=== PATIENT | female | born 1950 | race Caucasian/White ===

== ENCOUNTER 2020-08-31 07:26 | Outpatient (REF) | payer MEDICARE, OTHER, SELFPAY ==
[2020-08-31 11:38] LABS: Anion Gap 12 (12-20); Blood Urea Nitrogen 15 mg/dL (9-16); Calcium 8.9 mg/dL (8.4-10.2); Carbon Dioxide 28 mmol/L (22-29); Chloride 103 mmol/L (96-108); Estimated Glomerular Filt Rate > 60; Glucose Fasting 79 mg/dL (60-99); Potassium 4.3 mmol/l (3.3-5.1); Sodium 139 mmol/L (135-145)
[2020-08-31 12:04] LABS: Free T4 (Free Thyroxine) 1.25 ng/dL (0.71-1.85); Thyroid Stimulating Hormone 0.65 uIU/mL (0.32-4.0); Vitamin D 25-OH Total 40.2 ng/mL (>30)
== END 2020-08-31 07:27 | disposition home or self-care (01) ==
LOC: HO.HMGCLDS 07:26
PROVIDERS: PCP Internal Medicine; Visit Provider Internal Medicine
DX: I10 Essential (primary) hypertension (principal); E03.9 Hypothyroidism, unspecified; Z78.0 Asymptomatic menopausal state
CPT/HCPCS: 36415; 80048; 82306; 84439; 84443

== ENCOUNTER 2020-12-22 07:29 | Outpatient (REF) | payer MEDICARE, OTHER, SELFPAY ==
--- NOTE | ~2020-12-22 | MM_ITS ---
EXAMINATION: MM SCREENING DIGITAL BREAST TOMOSYNTHESIS, BILATERAL CLINICAL INFORMATION: Screening. Asymptomatic. The lifetime risk of breast cancer based on the Tyrer-Cuzick Model is 12%. COMPARISON: Mammography: 11/05/2019, 10/23/2018, 09/30/2017 TECHNIQUE: Digital breast tomosynthesis is performed in both the craniocaudal and mediolateral oblique views along with computer-aided detection (CAD). Synthesized 2D images are generated from the tomosynthesis. Additional left MLO view is provided. FINDINGS: There are scattered areas of fibroglandular density (ACR BI-RADS breast composition Category b). There are no significant masses, abnormal calcifications, or other abnormalities. There is stable minor bilateral smooth nodularity outer quadrants. There are scattered benign round and some ductal secretory calcifications again noted. The axilla and skin contours are unremarkable. No significant changes. MM/MM tomosynthesis screening BI IMPRESSION: No mammographic evidence of malignancy. ASSESSMENT: BI-RADS 2: Benign RECOMMENDATION: Routine annual mammography screening. This patient's information was entered into a reminder system with a target due date for their next mammogram.
== END 2020-12-22 07:30 | disposition home or self-care (01) ==
LOC: HO.MAMMO 07:29
PROVIDERS: Visit Provider Internal Medicine
DX: Z12.31 Encounter for screening mammogram for malignant neoplasm of breast (principal)
CPT/HCPCS: 77063; 77067

== ENCOUNTER 2021-02-01 07:02 | Outpatient (REF) | payer MEDICARE, OTHER, SELFPAY ==
[2021-02-01 11:08] LABS: MANUAL DIFF FLAG NO
[2021-02-01 11:28] LABS: Basophils Percent Auto 0.2 % (0-2); Eosinophils Absolute Auto 0.1 X10*3/uL (0.0-0.4); Eosinophils Percent Auto 2.2 % (0-4); Hematocrit 45.3 % (37-47); Hemoglobin 14.3 g/dl (12.0-16.0); Imm Gran Abs Auto 0.01 X10*3/uL (0.00-0.03); Imm Gran Pct Auto 0.2 % (0.0-0.4); Lymphocytes Absolute Auto 2.2 X10*3/uL (1.2-4.9); Lymphocytes Percent Auto 43.2 % (20-40); Mean Corpuscular HGB Conc 31.6 g/dl (31.0-35.0); Mean Corpuscular Hemoglobin 30.2 pg (27.0-33.0); Mean Corpuscular Volume 95.6 fL (80-98); Mean Platelet Volume 11.7 fL (9.4-12.3); Monocytes Absolute Auto 0.6 X10*3/uL (0.1-1.2); Monocytes Percent Auto 11.3 % (2-11); Neutrophils Absolute Auto 2.2 X10*3/uL (2.0-8.3); Neutrophils Percent Auto 42.9 % (45-73); Platelet Count 178 X10*3/uL (160-400); Red Blood Count 4.74 X10*6/uL (4.20-5.50); White Blood Count 5.1 X10*3/uL (4.8-10.8)
[2021-02-01 12:22] LABS: Free T4 (Free Thyroxine) 1.27 ng/dL (0.71-1.85); Thyroid Stimulating Hormone 0.75 uIU/mL (0.32-4.0); Vitamin D 25-OH Total 38.3 ng/mL (>30)
[2021-02-01 12:28] LABS: Folate 17.8 ng/mL (> or = 4.0); Vitamin B12 937 pg/mL (200-900)
[2021-02-01 12:54] LABS: Alanine Aminotransferase 16 U/L (0-31); Albumin Level 3.8 g/dL (3.5-5.0); Alkaline Phosphatase 140 U/L (39-117); Anion Gap 12 (12-20); Aspartate Amino Transferase 20 U/L (5-31); Bilirubin Total 0.7 mg/dL (0.0-1.0); Blood Urea Nitrogen 11 mg/dL (9-16); Carbon Dioxide 29 mmol/L (22-29); Chloride 105 mmol/L (96-108); Cholesterol 160 mg/dL; Estimated Glomerular Filt Rate > 60; Glucose Fasting 84 mg/dL (60-99); HDL Cholesterol 51 mg/dL; LDL Cholesterol Calculated 80 mg/dl; Sodium 141 mmol/L (135-145); Total Protein 6.7 g/dL (6.5-8.0); Triglycerides 145 mg/dL
== END 2021-02-01 07:03 | disposition home or self-care (01) ==
LOC: HO.HMGCLDS 07:02
PROVIDERS: PCP Internal Medicine; Visit Provider Internal Medicine
DX: I10 Essential (primary) hypertension (principal); E03.9 Hypothyroidism, unspecified; E66.9 Obesity, unspecified; Z78.0 Asymptomatic menopausal state
CPT/HCPCS: 36415; 80053; 80061; 82306; 82607; 82746; 84439; 84443; 85025

== ENCOUNTER → 2021-03-14 12:56 | Outpatient (BNVA) | payer MEDICARE, OTHER, SELFPAY | PROVIDERS: PCP Internal Medicine; Visit Provider Surgery Vascular Surgery | DX: I83.11 Varicose veins of right lower extremity with inflammation (principal) | CPT/HCPCS: 99202 ==

== ENCOUNTER 2021-04-08 07:52 | Outpatient (REF) | payer MEDICARE, OTHER, SELFPAY ==
--- NOTE | ~2021-04-08 | US_ITS ---
EXAMINATION: BILATERAL LOWER EXTREMITY VENOUS ULTRASOUND (Reflux Exam) CLINICAL INDICATION: This is a 71-year-old female with venous insufficiency and varicose veins. COMPARISON: None. TECHNIQUE: Color flow triplex imaging and compression Doppler was performed to evaluate both the deep and the superficial systems bilaterally. To evaluate the superficial system, the examination was performed in the upright position. Color-flow Doppler ultrasound and compression ultrasound were utilized. In addition, maneuvers were utilized to demonstrate reflux. FINDINGS: 1. DEEP VENOUS ULTRASOUND OF THE RIGHT LOWER EXTREMITY: Common Femoral Vein: Compressible, normal respiratory variation and augmented flow. Femoral vein: Compressible, normal color flow and augmentation. Popliteal Vein: Compressible, normal augmentation. Deep Reflux: There is no evidence of reflux in the deep system in either the common femoral vein or the popliteal vein. . There is no evidence of a White's cyst. 2. SUPERFICIAL ULTRASOUND WITH DOPPLER OF RIGHT LOWER EXTREMITY GREAT SAPHENOUS VEIN: Saphenofemoral junction: 1.1 cm. There is no reflux at the saphenofemoral junction. Mid thigh: 0.8 cm. There is reflux of 3312 ms. Above knee: 0.3 cm. There is no reflux at this level and below. Below knee: 0.3 cm Mid calf: 0.3 cm Ankle: 0.3 cm GSV REFLUX: There is isolated reflux in the proximal thigh but not in the saphenofemoral junction. DUPLICATED GREAT SAPHENOUS VEIN: None SMALL SAPHENOUS VEIN: Upper: 0.5 cm Lower: Not seen SSV REFLUX: No evidence of reflux. VEIN OF GIACOMINI: None Imaged. PERFORATORS: None Imaged VARICOSITIES: There are 0.6 cm proximal thigh varicose veins with 2244 ms. The 0.3 cm mid thigh varicose veins do not demonstrate reflux. 3. DEEP VENOUS ULTRASOUND OF THE LEFT LOWER EXTREMITY: Common Femoral Vein: Compressible, normal respiratory variation and augmented flow. Femoral vein: Compressible, normal color flow and augmentation. Popliteal Vein: Compressible, normal augmentation. Deep Reflux: There is no evidence of reflux in the deep system in either the common femoral vein or the popliteal vein. There is no evidence of a White's cyst. 4. SUPERFICIAL ULTRASOUND WITH DOPPLER OF LEFT LOWER EXTREMITY GREAT SAPHENOUS VEIN: Saphenofemoral junction: 1.1 cm. There is no reflux. Mid thigh: 0.4 cm. There is no reflux. Above knee: 0.5 cm. There is no reflux. Below knee: 0.5 cm. The reflux time is 1924 ms. Mid calf: 0.3 cm. There is no reflux. Ankle: 0.3 cm. There is no reflux. GSV REFLUX: There is isolated reflux at the knee and in the below-knee region. There is no reflux at the saphenofemoral junction. DUPLICATED GREAT SAPHENOUS VEIN: There is a 0.4 cm lateral duplicated great saphenous vein without reflux. SMALL SAPHENOUS VEIN: Upper: 0.3 cm Lower: 0.3 cm SSV REFLUX: There is greater than 3 seconds of reflux throughout the small saphenous vein. The reflux is seen at the junction. VEIN OF GIACOMINI: None Imaged. PERFORATORS: None Imaged VARICOSITIES: There are 0.3 cm proximal calf varicose veins with 2880 ms of reflux. US/US venous duplex LE BI IMPRESSION: 1. There is a patent right great saphenous vein with isolated proximal thigh reflux without evidence of reflux at the saphenofemoral junction. 2. There is a patent right small saphenous vein without reflux. 3. There are proximal right thigh varicose veins measuring 0.6 cm with reflux of 2244 ms. 4. There is a patent left great saphenous vein without evidence of reflux at the saphenofemoral junction. 5. There is a patent left lateral duplicated great saphenous vein without evidence of reflux. 6. There is a patent left small saphenous vein with reflux at the junction of greater than 3 seconds. 7. There are varicose veins in the proximal calf with greater than 2 seconds of reflux.
== END 2021-04-08 07:53 | disposition home or self-care (01) ==
LOC: HO.US 07:52
PROVIDERS: PCP Internal Medicine; Visit Provider Surgery Vascular Surgery
DX: I83.893 Varicose veins of bilateral lower extremities with other complications (principal)
CPT/HCPCS: 93970

== ENCOUNTER → 2021-04-16 09:10 | Outpatient (BNVA) | payer MEDICARE, OTHER, SELFPAY | PROVIDERS: PCP Internal Medicine; Visit Provider Surgery Vascular Surgery | DX: I83.11 Varicose veins of right lower extremity with inflammation (principal) | CPT/HCPCS: 99212 ==

== ENCOUNTER 2021-05-07 14:13 | Outpatient (REF) | payer MEDICARE, OTHER, SELFPAY ==
[2021-05-07 16:49] LABS: MANUAL DIFF FLAG NO
[2021-05-07 16:56] LABS: Basophils Percent Auto 0.4 % (0-2); Eosinophils Absolute Auto 0.1 X10*3/uL (0.0-0.4); Eosinophils Percent Auto 1.1 % (0-4); Hematocrit 45.6 % (37-47); Hemoglobin 14.7 g/dl (12.0-16.0); Imm Gran Abs Auto 0.01 X10*3/uL (0.00-0.03); Imm Gran Pct Auto 0.2 % (0.0-0.4); Lymphocytes Absolute Auto 2.1 X10*3/uL (1.2-4.9); Lymphocytes Percent Auto 37.6 % (20-40); Mean Corpuscular HGB Conc 32.2 g/dl (31.0-35.0); Mean Corpuscular Hemoglobin 29.9 pg (27.0-33.0); Mean Corpuscular Volume 92.7 fL (80-98); Mean Platelet Volume 11.6 fL (9.4-12.3); Monocytes Absolute Auto 0.5 X10*3/uL (0.1-1.2); Monocytes Percent Auto 8.3 % (2-11); Neutrophils Percent Auto 52.4 % (45-73); Platelet Count 181 X10*3/uL (160-400); Red Blood Count 4.92 X10*6/uL (4.20-5.50); Red Cell Distribution Width 12.8 % (11.0-16.0); White Blood Count 5.7 X10*3/uL (4.8-10.8)
[2021-05-07 18:12] LABS: Alanine Aminotransferase 19 U/L (0-31); Albumin Level 4.1 g/dL (3.5-5.0); Alkaline Phosphatase 139 U/L (39-117); Anion Gap 13 (12-20); Aspartate Amino Transferase 21 U/L (5-31); Bilirubin Total 0.7 mg/dL (0.0-1.0); Blood Urea Nitrogen 12 mg/dL (9-16); Calcium 9.3 mg/dL (8.4-10.2); Carbon Dioxide 22 mmol/L (22-29); Chloride 109 mmol/L (96-108); Estimated Glomerular Filt Rate > 60; Glucose Random 83 mg/dL (60-115); Potassium 4.2 mmol/L (3.3-5.1); Sodium 140 mmol/L (135-145)
== END 2021-05-07 14:14 | disposition home or self-care (01) ==
LOC: HO.HMGCLDS 14:13
PROVIDERS: PCP Internal Medicine; Visit Provider Internal Medicine
DX: Z20.822 Contact with and (suspected) exposure to COVID-19 (principal); R19.7 Diarrhea, unspecified
CPT/HCPCS: 80053; 85025; U0003; U0005

== ENCOUNTER 2021-05-08 08:40 | Outpatient (REF) | payer MEDICARE, OTHER, SELFPAY ==
[2021-05-08 12:25] LABS: Leukocytes Stool Qualitative NEGATIVE (NEGATIVE)
== END 2021-05-08 08:41 | disposition home or self-care (01) ==
LOC: HO.HMGCLNP 08:40
PROVIDERS: Visit Provider Internal Medicine
DX: R19.7 Diarrhea, unspecified (principal)
CPT/HCPCS: 87015; 87045; 87046; 87207; 87329; 89055

== ENCOUNTER → 2021-05-10 07:31 | Outpatient (BNVA) | payer MEDICARE, OTHER, SELFPAY | PROVIDERS: PCP Internal Medicine; Visit Provider Surgery Vascular Surgery | DX: I83.11 Varicose veins of right lower extremity with inflammation (principal) | CPT/HCPCS: 36482 ==

== ENCOUNTER 2021-05-13 10:32 | Outpatient (REF) | payer MEDICARE, OTHER, SELFPAY ==
--- NOTE | ~2021-05-13 | US_ITS ---
EXAMINATION: US VENOUS ULTRASOUND WITH DOPPLER LOWER EXTREMITY, RIGHT CLINICAL INFORMATION: Post venous procedure. Rule out DVT. COMPARISON: Previous exam March 2021 TECHNIQUE: Ultrasound of the deep veins is performed from the hip to the calf with compression sonography and color and pulse Doppler assessment. Spectral analysis with color-flow imaging is performed. FINDINGS: There is normal venous compression and respiratory variation and augmented flow. The visualized common femoral vein, superficial femoral vein, profunda femoral vein, popliteal vein, and the trifurcation region shows no evidence of deep venous thrombosis. There is echogenic material seen in the right greater saphenous vein post venous procedure. This is 1.4 cm from the saphenofemoral junction. The greater saphenous vein appears closed. US/US venous duplex LE RT IMPRESSION: No DVT demonstrated in the right lower extremity.
== END 2021-05-13 10:33 | disposition home or self-care (01) ==
LOC: HO.HMGCX 10:32
PROVIDERS: PCP Internal Medicine; Visit Provider Surgery Vascular Surgery
DX: M79.604 Pain in right leg (principal)
CPT/HCPCS: 93971

== ENCOUNTER → 2021-05-23 09:13 | Outpatient (BNVA) | payer MEDICARE, OTHER, SELFPAY | PROVIDERS: PCP Internal Medicine; Visit Provider Surgery Vascular Surgery | DX: I83.11 Varicose veins of right lower extremity with inflammation (principal) | CPT/HCPCS: 99212 ==

== ENCOUNTER 2021-07-08 06:19 | Outpatient (REF) | payer MEDICARE, OTHER, SELFPAY ==
[2021-07-08 12:33] LABS: Free T4 (Free Thyroxine) 1.16 ng/dL (0.71-1.85); Thyroid Stimulating Hormone 1.34 uIU/mL (0.32-4.0)
== END 2021-07-08 06:20 | disposition home or self-care (01) ==
LOC: HO.HMGCLDS 06:19
PROVIDERS: PCP Internal Medicine; Visit Provider Internal Medicine
DX: E03.9 Hypothyroidism, unspecified (principal)
CPT/HCPCS: 36415; 84439; 84443

== ENCOUNTER 2021-08-14 08:00 | Outpatient (RCR) | payer MEDICARE, OTHER, SELFPAY ==
--- NOTE | 2021-07-24 16:49 | MHC.PT.EP ---
[facility] [place] Office [place] Office [place] Office [address] Mike Evans [address] [phone] F: [phone] F: [phone] F: [phone] F: [phone] Physical Therapy Plan of Care Date of Evaluation: Date of Surgery: Diagnosis: lumbago with sciatica unspecified side Assessment: Pt is a 71 y/o female referred to PT for eval and treat of lumbago with sciatica who presents with lumbar dysfunction resulting in decreased tolerance for standing and ambulating, performing yard-work and heavy HH chores, secondary to decreased trunk ROM and strength, decreased hip strength, increased lumbar and LE tissue tension, and pain. Pt is deemed an appropriate candidate to receive skilled PT in order to address her physical limitations to improve her functional ability. Frequency and Duration: The patient will be seen 2 x\ wk x 4 wks. Short Term Goals: Initiate HEP. improve baseline pain with activity to < 5/10; initial: 8/10. Hardware Technician Goals: I with HEP. Pt will be able to lift heavy weights though it increases my pain ; initial: i can only lift very light weights . improve core strength to > Good; initial Fair +. Pt will be able to stand as long as I'd like though it does increase my pain ; initial: pain prevents me from standing > 10 min . Treatment Plan: Modalities to reduce pain, spasms and effusion. Manual therapy to restore motion and function. Therapeutic exercise to improve strength and flexibility. Neuromuscular re-education for posture and balance. Therapeutic activities to return to functional activities of daily living. Electronically signed by: Sylvain Gates DPT. Please sign and return to therapist. Thank you for your referral.
--- NOTE | 2021-12-25 08:43 | MHC.PT.DC ---
[facility] [place] Office [place] Office [place] Office [address] Mike Evans [address] [phone] F: [phone] F: [phone] F: [phone] F: [phone] Physical Therapy Discharge Report Diagnosis: lumbago with sciatica unspecified side Date of Surgery: Date of Evaluation: 07/24/21 Date of Discharge: 08/14/21 Treatments to Date: 6 Cancellations to Date: No Shows to Date: Discharge Status: Independent with HEP Patient Elected to Stop Discharge Summary: Pt elected to stop before last visit. Pt c/o knee pain with SKC DC exs. Pt I with HEP and progressing with goals. Pt has 1 v remaining and DC NV Electronically signed by: Bismark Ryan, PT Please sign and return to therapist. Thank you for your referral.
== END 2021-12-25 08:44 | disposition home or self-care (01) ==
LOC: HO.PTCHIC 08:00
PROVIDERS: PCP Internal Medicine; Visit Provider Internal Medicine
DX: M54.40 Lumbago with sciatica, unspecified side (principal)
CPT/HCPCS: 97110; 97140; 97150; 97161

== ENCOUNTER 2021-12-28 07:47 | Outpatient (REF) | payer MEDICARE, OTHER, SELFPAY ==
--- NOTE | ~2021-12-28 | MM_ITS ---
EXAMINATION: MM SCREENING DIGITAL BREAST TOMOSYNTHESIS, BILATERAL CLINICAL INFORMATION: Screening. Asymptomatic. The lifetime risk of breast cancer based on the Tyrer-Cuzick Model is 13%. COMPARISON: Mammography: 12/22/2020, 11/05/2019, 10/23/2018 TECHNIQUE: Digital breast tomosynthesis is performed in both the craniocaudal and mediolateral oblique views along with computer-aided detection (CAD). Synthesized 2D images are generated from the tomosynthesis. Additional bilateral MLO views are provided. FINDINGS: There are scattered areas of fibroglandular density (ACR BI-RADS breast composition Category b). There are no significant masses, abnormal calcifications, or other abnormalities. Minor bilateral nodularity outer quadrants are stable. Again, there are scattered bilateral punctate and coarse round and some vascular calcifications. There are no significant changes. MM/MM tomosynthesis screening BI IMPRESSION: No mammographic evidence of malignancy. ASSESSMENT: BI-RADS 2: Benign RECOMMENDATION: Routine annual mammography screening. This patient's information was entered into a reminder system with a target due date for their next mammogram.
== END 2021-12-28 07:48 | disposition home or self-care (01) ==
LOC: HO.MAMMO 07:47
PROVIDERS: PCP Internal Medicine; Visit Provider Internal Medicine
DX: Z12.31 Encounter for screening mammogram for malignant neoplasm of breast (principal)
CPT/HCPCS: 77063; 77067

== ENCOUNTER 2022-01-13 07:13 | Outpatient (REF) | payer MEDICARE, OTHER, SELFPAY ==
[2022-01-13 11:55] LABS: Alanine Aminotransferase 22 U/L (0-31); Anion Gap 15 (12-20); Aspartate Amino Transferase 24 U/L (5-31); Blood Urea Nitrogen 16 mg/dL (9-16); Calcium 9.7 mg/dL (8.4-10.2); Carbon Dioxide 25 mmol/L (22-29); Chloride 106 mmol/L (96-108); Cholesterol 175 mg/dL; Estimated Glomerular Filt Rate > 60; Glucose Fasting 94 mg/dL (60-99); HDL Cholesterol 61 mg/dL; LDL Cholesterol Calculated 95 mg/dl; Potassium 4.8 mmol/L (3.3-5.1); Sodium 141 mmol/L (135-145); Triglycerides 97 mg/dL
[2022-01-13 11:56] LABS: Thyroid Stimulating Hormone 1.32 uIU/mL (0.32-4.0); Vitamin D 25-OH Total 29.8 ng/mL (>30)
[2022-01-13 12:38] LABS: Vitamin B12 824 pg/mL (200-900)
== END 2022-01-13 07:14 | disposition home or self-care (01) ==
LOC: HO.HMGCLDS 07:13
PROVIDERS: Visit Provider Internal Medicine
DX: E03.9 Hypothyroidism, unspecified (principal); E66.9 Obesity, unspecified; I10 Essential (primary) hypertension; N95.9 Unspecified menopausal and perimenopausal disorder
CPT/HCPCS: 36415; 80048; 80061; 82306; 82607; 82746; 84439; 84443; 84450; 84460

== ENCOUNTER → 2022-03-27 10:30 | Outpatient (BNVA) | payer MEDICARE, OTHER, SELFPAY | PROVIDERS: PCP Internal Medicine; Referring Provider Physician Assistant; Visit Provider Physician Assistant Surgical | DX: E66.01 Morbid (severe) obesity due to excess calories (principal); Z98.84 Bariatric surgery status; Z68.41 Body mass index [BMI] 40.0-44.9, adult | CPT/HCPCS: 99212 ==

== ENCOUNTER 2022-07-10 07:43 | Outpatient (REF) | payer MEDICARE, OTHER, SELFPAY ==
[2022-07-10 11:24] LABS: MANUAL DIFF FLAG NO
[2022-07-10 11:38] LABS: Basophils Percent Auto 0.5 % (0-2); Eosinophils Absolute Auto 0.1 X10*3/uL (0.0-0.4); Eosinophils Percent Auto 2.2 % (0-4); Hematocrit 46.9 % (37.0-47.0); Hemoglobin 14.4 g/dl (12.0-16.0); Imm Gran Abs Auto 0.01 X10*3/uL (0.00-0.03); Imm Gran Pct Auto 0.2 % (0.0-0.4); Lymphocytes Absolute Auto 1.8 X10*3/uL (1.2-4.9); Lymphocytes Percent Auto 45.5 % (20-40); Mean Corpuscular HGB Conc 30.7 g/dl (31.0-35.0); Mean Corpuscular Hemoglobin 29.5 pg (27.0-33.0); Mean Corpuscular Volume 96.1 fL (80.0-98.0); Mean Platelet Volume 11.1 fL (9.4-12.3); Monocytes Absolute Auto 0.3 X10*3/uL (0.1-1.2); Neutrophils Absolute Auto 1.8 x10*3/uL (2.0-8.3); Neutrophils Percent Auto 44.6 % (45-73); Platelet Count 207 X10*3/uL (160-400); Red Blood Count 4.88 X10*6/uL (4.20-5.50); Red Cell Distribution Width 13.2 % (11.0-16.0)
[2022-07-10 12:27] LABS: Estimated Average Glucose 97 mg/dL
[2022-07-10 14:16] LABS: Alanine Aminotransferase 19 U/L (0-31); Alkaline Phosphatase 143 U/L (39-117); Anion Gap 16 (12-20); Aspartate Amino Transferase 19 U/L (5-31); Blood Urea Nitrogen 15 mg/dL (9-16); Calcium 9.5 mg/dL (8.4-10.2); Carbon Dioxide 27 mmol/L (22-29); Chloride 105 mmol/L (96-108); Cholesterol 167 mg/dL; Estimated Glomerular Filt Rate > 60; Ferritin 172 ng/mL (10-250); Glucose Random 86 mg/dL (60-115); HDL Cholesterol 58 mg/dL; Insulin 12 uU/mL (2-29); Iron 111 mcg/dL (30-160); LDL Cholesterol Calculated 92 mg/dl; Percent Iron Saturation 39 % (15-50); Potassium 4.9 mmol/L (3.3-5.1); Sodium 143 mmol/L (135-145); TSH reflex Free T4 1.88 uIU/mL (0.32-4.0); Total Iron Binding Capacity 285 mcg/dL (228-428); Triglycerides 85 mg/dL; Unsaturated Iron Binding 174 ug/dL; Vitamin D 25-OH Total 39.5 ng/mL (>30)
[2022-07-10 16:55] LABS: Folate 14.5 ng/mL (> or = 4.0); Vitamin B12 1350 pg/mL (200-900)
[2022-07-11 12:22] LABS: Calcium (PTHI) 9.5 mg/dL (8.6-10.4); PTHI 129 pg/mL (16-77)
[2022-07-15 12:03] LABS: Vitamin B1 21 nmol/L (8-30)
[2022-07-16 06:37] LABS: Zinc 86 mcg/dL (60-130)
[2022-07-16 21:12] LABS: Vitamin A 37 mcg/dL (38-98)
== END 2022-07-10 07:44 | disposition home or self-care (01) ==
LOC: HO.HMGCLDS 07:43
PROVIDERS: PCP Internal Medicine; Visit Provider Physician Assistant Surgical
DX: K91.2 Postsurgical malabsorption, not elsewhere classified (principal); Z98.84 Bariatric surgery status
CPT/HCPCS: 36415; 80053; 80061; 82306; 82607; 82728; 82746; 83036; 83525; 83540; 83970; 84425; 84443; 84590; 84630; 85025; 86140

== ENCOUNTER 2022-07-23 12:09 | Outpatient (REF) | payer MEDICARE, OTHER, SELFPAY ==
--- NOTE | ~2022-07-23 | XR_ITS ---
EXAMINATION: LEFT HAND AND WRIST X-RAY CLINICAL INFORMATION: Fall COMPARISON: None TECHNIQUE: 3 views of the left hand and wrist FINDINGS: There is question of a nondisplaced fracture of the radial styloid. No other fracture. There is arthritis at the IP joints and first FDC joint with joint space narrowing and osteophyte formation. Soft tissues are normal. XR/XR hand wrist LT IMPRESSION: Question nondisplaced radial styloid fracture. Clinical correlation recommended. Arthritis at the IP and first FDC joints.
== END 2022-07-23 12:10 | disposition home or self-care (01) ==
LOC: HO.HMGCX 12:09
PROVIDERS: PCP Internal Medicine; Visit Provider Internal Medicine
DX: M25.532 Pain in left wrist (principal); M79.642 Pain in left hand; Z91.81 History of falling
CPT/HCPCS: 73110; 73130

== ENCOUNTER → 2022-08-01 08:23 | Outpatient (BNVA) | payer MEDICARE, OTHER, SELFPAY | PROVIDERS: PCP Internal Medicine; Visit Provider Internal Medicine Endocrinology, Diabetes & Metabolism | DX: E21.3 Hyperparathyroidism, unspecified (principal) | CPT/HCPCS: 99202 ==

== ENCOUNTER → 2022-08-27 10:20 | Outpatient (BNVA) | payer MEDICARE, OTHER, SELFPAY | PROVIDERS: PCP Internal Medicine; Visit Provider Physician Assistant Surgical | DX: E66.9 Obesity, unspecified (principal); Z98.84 Bariatric surgery status; Z68.39 Body mass index [BMI] 39.0-39.9, adult | CPT/HCPCS: 99212 ==

== ENCOUNTER 2022-10-07 08:55 | Outpatient (REF) | payer MEDICARE, OTHER, SELFPAY ==
[2022-10-07 13:34] LABS: Creatinine, mg/dL 59.29
[2022-10-07 14:01] LABS: Total Volume 24 Hour Urine 1650 mL
[2022-10-09 17:14] LABS: Calcium, 24 Hr Urine 86 mg/24 h; Calcium/Creatinine Ratio 90 mg/g creat (30-275); Creatinine 24Hr Urine 0.96 g/24 h (0.50-2.15)
== END 2022-10-07 08:56 | disposition home or self-care (01) ==
LOC: HO.HMGCLDS 08:55
PROVIDERS: PCP Internal Medicine; Visit Provider Internal Medicine Endocrinology, Diabetes & Metabolism
DX: E21.3 Hyperparathyroidism, unspecified (principal)
CPT/HCPCS: 82340; 82570

== ENCOUNTER 2022-11-28 07:58 | Outpatient (REF) | payer MEDICARE, OTHER, SELFPAY ==
[2022-11-28 12:29] LABS: Vitamin D 25-OH Total 32.2 ng/mL (>30)
[2022-12-02 08:04] LABS: Calcium (PTHI) 9.6 mg/dL (8.6-10.4); PTHI 108 pg/mL (16-77)
== END 2022-11-28 07:59 | disposition home or self-care (01) ==
LOC: HO.HMGCLDS 07:58
PROVIDERS: PCP Internal Medicine; Visit Provider Internal Medicine Endocrinology, Diabetes & Metabolism
DX: E21.3 Hyperparathyroidism, unspecified (principal); E55.9 Vitamin D deficiency, unspecified
CPT/HCPCS: 36415; 82306; 83970

== ENCOUNTER → 2022-12-03 08:00 | Outpatient (BNVA) | payer MEDICARE, OTHER, SELFPAY | PROVIDERS: PCP Internal Medicine; Visit Provider Internal Medicine Endocrinology, Diabetes & Metabolism | DX: E21.3 Hyperparathyroidism, unspecified (principal) | CPT/HCPCS: 99212 ==

== ENCOUNTER 2022-12-17 08:08 | Outpatient (REF) | payer MEDICARE, OTHER, SELFPAY ==
--- NOTE | ~2022-12-17 | MM_ITS ---
EXAMINATION: BONE DENSITOMETRY CLINICAL INDICATION: Hyperparathyroidism, unspecified. COMPARISON: Baseline BD dated 11/02/2019. TECHNIQUE: Using a Tagboard DXA System (software version: 13.1) manufactured by [employer], dual-energy x-ray absorptiometry was performed of the lumbar spine, left hip, and right forearm radius 33%. The images are of good technical quality. Summary results are attached. FINDINGS: AP SPINE L1-L4: There are degenerative changes in the lumbar spine which may cause overestimation of the lumbar bone mineral density. Current: BMD 1.369 g/cm2, Z-score 2.1, T-score 1.6, normal, 2.1% decrease from baseline (<5% change is not significant). Baseline: BMD 1.398 g/cm2. LEFT FEMUR, NECK: Current: BMD 0.765 g/cm2, Z-score -0.9, T-score -2.0, osteopenia. Baseline: BMD 0.863 g/cm2. LEFT FEMUR, TOTAL: Current: BMD 0.895 g/cm2, Z-score -0.1, T-score -0.9, normal, 15.0% decrease from baseline (<5% change is not significant). Baseline: BMD 1.053 g/cm2. RIGHT FOREARM RADIUS 33%: BMD 0.886 g/cm2, Z-score 2.3, T-score 0.1, normal. Baseline: Not previously measured. IDENTIFIED RISK FACTORS: Hyperparathyroidism, secondary osteoporosis, history of fracture (adult), menopause. HISTORY OF FRACTURE: Wrist. MEDICATIONS: Calcium supplements or multivitamin, vitamin D. MM/XR DEXA appendicular skeleton IMPRESSION: 1. DIAGNOSIS: Osteopenia based on the lowest T-score value of -2.0 in the femoral neck applying World Health Organization criteria. 2. 10-YEAR FRACTURE RISK PREDICTION, FRAX: Major osteoporotic fracture (clinical spine, forearm, hip or shoulder) 16.9%. Hip fracture 3.5%. 3. Treatment Recommendations: NOF guidelines recommend consideration for treatment in postmenopausal women and men age 50 and older presenting with the following: -A hip or vertebral (clinical or morphometric) fracture. -T-score less than or equal to -2.5 at the femoral neck or spine after appropriate evaluation to exclude secondary causes. -Low bone mass at the hip or spine and a 10-year fracture probability by FRAX of greater than or equal to 3% for hip fracture or greater than or equal to 20% for major osteoporotic fracture based on the [place] adapted WHO algorithm. 4. Other Recommendations: All treatment decisions require clinical judgment and consideration of individual patient factors, including patient preferences, comorbidities, previous drug use, risk factors not captured in the FRAX model (e.g. frailty, falls, vitamin D deficiency, increased bone turnover, interval significant decline in bone density) and possible under or overestimation of fracture risk by FRAX. Additional medical evaluation for secondary cause of low bone mineral density may be appropriate. FUTURE SCAN RECOMMENDATION: People with diagnosed cases of osteoporosis or at high risk for fracture should have regular bone mineral density tests. For patients eligible for Medicare, routine testing is allowed once every 2 years. The testing frequency can be increased to one year for patients who have rapidly progressing disease, those who are receiving or discontinuing medical therapy to restore bone mass, or have additional risk factors.
== END 2022-12-17 08:09 | disposition home or self-care (01) ==
LOC: HO.MAMMO 08:08
PROVIDERS: PCP Internal Medicine; Visit Provider Internal Medicine Endocrinology, Diabetes & Metabolism
DX: Z13.820 Encounter for screening for osteoporosis (principal); E21.3 Hyperparathyroidism, unspecified; Z78.0 Asymptomatic menopausal state
CPT/HCPCS: 77081

== ENCOUNTER 2023-01-03 08:21 | Outpatient (REF) | payer MEDICARE, OTHER, SELFPAY ==
--- NOTE | ~2023-01-03 | MM_ITS ---
EXAMINATION: MM SCREENING DIGITAL BREAST TOMOSYNTHESIS, BILATERAL CLINICAL INFORMATION: Screening. Asymptomatic. The lifetime risk of breast cancer based on the Tyrer-Cuzick Model is 11%. COMPARISON: Mammography: 12/28/2021, 12/22/2020, 11/05/2019 TECHNIQUE: Digital breast tomosynthesis is performed in both the craniocaudal and mediolateral oblique views along with computer-aided detection (CAD). Synthesized 2D images are generated from the tomosynthesis. Additional left MLO view is provided. FINDINGS: There are scattered areas of fibroglandular density (ACR BI-RADS breast composition Category b). There are no significant masses, abnormal calcifications, or other abnormalities. No architectural abnormality or developing density or significant change from prior studies. Again, there is scattered minor smooth nodularity bilateral breasts. Scattered benign round and coarse calcifications are again seen. The axilla are unremarkable. No significant changes. MM/MM tomosynthesis screening BI IMPRESSION: No mammographic evidence of malignancy. ASSESSMENT: BI-RADS 2: Benign RECOMMENDATION: Routine annual mammography screening. This patient's information was entered into a reminder system with a target due date for their next mammogram.
== END 2023-01-03 08:22 | disposition home or self-care (01) ==
LOC: HO.MAMMO 08:21
PROVIDERS: PCP Internal Medicine; Visit Provider Internal Medicine
DX: Z12.31 Encounter for screening mammogram for malignant neoplasm of breast (principal)
CPT/HCPCS: 77063; 77067

== ENCOUNTER 2023-01-12 09:42 | Outpatient (REF) | payer MEDICARE, OTHER, SELFPAY ==
[2023-01-12 12:38] LABS: Free T4 (Free Thyroxine) 1.16 ng/dL (0.71-1.85); Thyroid Stimulating Hormone 0.96 uIU/mL (0.32-4.0)
[2023-01-20 10:08] LABS: Vitamin A 44 mcg/dL (38-98)
== END 2023-01-12 09:43 | disposition home or self-care (01) ==
LOC: HO.HMGCLDS 09:42
PROVIDERS: PCP Internal Medicine; Visit Provider Internal Medicine
DX: E03.9 Hypothyroidism, unspecified (principal); E50.9 Vitamin A deficiency, unspecified
CPT/HCPCS: 36415; 84439; 84443; 84590

== ENCOUNTER 2023-01-16 10:48 | Outpatient (REF) | payer MEDICARE, OTHER, SELFPAY ==
[2023-01-23 04:03] LABS: Vitamin A 53 mcg/dL (38-98)
== END 2023-01-16 10:49 | disposition home or self-care (01) ==
LOC: HO.HMGCLDS 10:48
PROVIDERS: PCP Internal Medicine; Visit Provider Internal Medicine
DX: E03.9 Hypothyroidism, unspecified (principal); E50.9 Vitamin A deficiency, unspecified
CPT/HCPCS: 36415; 84590

== ENCOUNTER 2023-03-21 06:30 | Outpatient (REF) | payer MEDICARE, OTHER, SELFPAY ==
[2023-03-21 11:54] LABS: Vitamin D 25-OH Total 48.1 ng/mL (>30)
[2023-03-23 13:22] LABS: Calcium (PTHI) 8.8 mg/dL (8.6-10.4); PTHI 133 pg/mL (16-77)
== END 2023-03-21 06:31 | disposition home or self-care (01) ==
LOC: HO.HMGCLDS 06:30
PROVIDERS: PCP Internal Medicine; Visit Provider Internal Medicine Endocrinology, Diabetes & Metabolism
DX: E21.3 Hyperparathyroidism, unspecified (principal); E55.9 Vitamin D deficiency, unspecified
CPT/HCPCS: 36415; 82306; 83970

== ENCOUNTER 2023-04-01 07:57 | Outpatient (AMB) | payer MEDICARE, OTHER, SELFPAY ==
--- NOTE | 2023-04-01 08:07 | MHC.OFFVIS ---
Intake Vital Signs 04/01/23 08:09 Height 5 ft 4.5 in Weight 240 lb 8.389 oz BMI 40.6 BP 136/74 Blood Pressure Location Lt brachial Position Sitting Pulse 64 Pulse Source Pulse Oximeter Intake Visit Reasons: f/u hyperparathyroidism Intake Note: Patient present for Hyperparathyroidism follow up visit. Civil Service Clerk Required: No Accompanied by: Self / Same As Patient Allergies latex [LATEX] Allergy (Unknown, Verified 04/01/23 08:10) RASH Penicillins [PENICILLINS] Allergy (Unknown, Verified 04/01/23 08:10) DIFFICULTY BREATHING - YRS AGO tape Allergy (Unknown, Uncoded 01/20/23 11:29) redness and itching Medication List - Last Reconciled 04/01/23 by Mandeep Du MD calcium carbonate (Calcium) 750 mg PO TID cetirizine mg PO DAILY cholecalciferol (vitamin D3) 3,000 units PO DAILY clotrimazole-betamethasone 1-0.05 % apply to affected areas topical 2 times a day; 10 days docusate sodium (Colace) 100 mg PO DAILY multivitamin 1 tab PO DAILY omeprazole 40 mg PO DAILY Synthroid (levothyroxine) 150 mcg PO DAILY 90 days NS vitamin A palmitate 10,000 units PO DAILY HPI HPI Comments History of Present Illness Details 72 YO F with PMHx bariatric surgery who is seen in consultation at the request of PCP for Increased PTH First noted to haveincreased PTH in just foind out . Currently using Calcium supplement since 500 mg TID since bariatric surgery . Takes 1500 IU of Vitamin D daily. Not Currently using HCTZ. off for yrs Kidney stones: No Osteoporosis:No osteopenia in 2019 History of [place] use: No Biotin use: No Family history of high calcium or kidney stones: No Renal imaging: [] DXA: Labs: Recently had a left wrist fracture after a hard fall Workup revealed borderline low vitamin-D level with elevated PTH. PTH remains elevated with normal vitamin-D and low 24 hour urine for calcium suggesting malabsorption of calcium [facility] Medical History Closed fracture of radial styloid Erythema intertrigo Furunculosis of multiple sites GERD (gastroesophageal reflux disease) H/O non anemic vitamin B12 deficiency Hypertension Hypothyroidism Lumbago with sciatica Menopause Obesity Tubular adenoma of colon Varicose veins of bilateral lower extremities with pain Surgical History History of colonoscopy History of Bradley-en-Y gastric bypass Hx laparoscopic cholecystectomy Family History Father No problems noted. Mother No problems noted. Sister Breast cancer Social History Housing: House Alcohol intake: current Alcohol intake frequency: holidays/special occasions only Alcohol type: wine Patient Tobacco Use Status: Former Tobacco user Quit Date: 1977 Cigarette Packs Per Day: 1 Cigarettes Per Day: 20 Years Smoked: 10 e-Cigarette/Vaping Use: Never Used Current occupational status: retired Cognitive needs: No Hearing needs: No Vision needs: Yes Physical Exam Vital Signs: BMI result Body Mass Index 40.6 Assessment & Plan Assessment & Plan (1) Parathyroid hormone excess: Code(s): E21.3 - Hyperparathyroidism, unspecified Plan: This is a 72-year-old white female with history of gastric bypass surgery found to have elevated PTH. 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 Calcium is low normal. Less likely is the presence of normocalcemia primary hyperparathyroidism Plan is to increase calcium supplementation to 750 mg TID and recheck calcium, 25 hydroxy vitamin-D, PTH in 12 weeks. Would expect to see PTH trend downward with increased calcium. Sometimes, PTH can take several months to years to normalize. Orders: Orders Creatinine, 24 Hr Group 3 Months E21.3 - Hyperparathyroidism, unspecified Calcium, 24 Hr Ur 3 Months E21.3 - Hyperparathyroidism, unspecified Coding Level of Care Code Est Pt Level 3 (99048) Diagnoses Parathyroid hormone excess E21.3
[2023-04-01 08:09] VITALS: BP 136/74; PULSE 64; BMI 40.6
== END 2023-04-01 08:28 | disposition home or self-care (01) ==
PROVIDERS: PCP Internal Medicine; Visit Provider Internal Medicine Endocrinology, Diabetes & Metabolism
DX: E21.3 Hyperparathyroidism, unspecified (principal)
CPT/HCPCS: 99213

== ENCOUNTER → 2023-04-01 07:57 | Outpatient (BNVA) | payer MEDICARE, OTHER, SELFPAY | PROVIDERS: Visit Provider Internal Medicine Endocrinology, Diabetes & Metabolism | DX: E21.3 Hyperparathyroidism, unspecified (principal) | CPT/HCPCS: 99212 ==

== ENCOUNTER 2023-05-16 07:02 | Outpatient (REF) | payer MEDICARE, OTHER, SELFPAY ==
[2023-05-16 07:28] LABS: MANUAL DIFF FLAG NO
[2023-05-16 08:04] LABS: Basophils Percent Auto 0.6 % (0-2); Eosinophils Absolute Auto 0.1 X10*3/uL (0.0-0.4); Eosinophils Percent Auto 2.6 % (0-4); Hematocrit 47.5 % (37.0-47.0); Hemoglobin 14.7 g/dl (12.0-16.0); Imm Gran Abs Auto 0.01 X10*3/uL (0.00-0.03); Imm Gran Pct Auto 0.2 % (0.0-0.4); Lymphocytes Absolute Auto 1.9 X10*3/uL (1.2-4.9); Lymphocytes Percent Auto 37.8 % (20-40); Mean Corpuscular HGB Conc 30.9 g/dl (31.0-35.0); Mean Corpuscular Hemoglobin 29.3 pg (27.0-33.0); Mean Corpuscular Volume 94.6 fL (80.0-98.0); Monocytes Absolute Auto 0.4 X10*3/uL (0.1-1.2); Monocytes Percent Auto 8.9 % (2-11); Neutrophils Absolute Auto 2.5 x10*3/uL (2.0-8.3); Neutrophils Percent Auto 49.9 % (45-73); Platelet Count 189 X10*3/uL (160-400); Red Blood Count 5.02 X10*6/uL (4.20-5.50)
[2023-05-16 08:48] LABS: Estimated Average Glucose 97 mg/dL
[2023-05-16 08:54] LABS: Alanine Aminotransferase 24 U/L (0-31); Albumin Level 3.9 g/dL (3.5-5.0); Alkaline Phosphatase 138 U/L (39-117); Anion Gap 13 (12-20); Aspartate Amino Transferase 24 U/L (5-31); Bilirubin Total 0.5 mg/dL (0.0-1.0); Blood Urea Nitrogen 16 mg/dL (9-16); C Reactive Protein < 0.10 mg/dL (< or = 0.50); Calcium 9.7 mg/dL (8.4-10.2); Carbon Dioxide 26 mmol/L (22-29); Chloride 106 mmol/L (96-108); Cholesterol 166 mg/dL (<200); Estimated Glomerular Filt Rate > 60; Glucose Random 94 mg/dL (60-115); HDL Cholesterol 55 mg/dL (>40); Iron 76 mcg/dL (30-160); LDL Cholesterol Calculated 87 mg/dL (<100); Percent Iron Saturation 26 % (15-50); Potassium 4.7 mmol/L (3.3-5.1); Sodium 140 mmol/L (135-145); Total Iron Binding Capacity 298 mcg/dL (228-428); Total Protein 7.2 g/dL (6.5-8.0); Triglycerides 123 mg/dL (<150); Unsaturated Iron Binding 222 ug/dL
[2023-05-16 09:14] LABS: Ferritin 98 ng/mL (10-250); Insulin 13 uU/mL (2-29); TSH reflex Free T4 1.02 uIU/mL (0.32-4.0); Vitamin D 25-OH Total 51.9 ng/mL (>30)
[2023-05-16 09:18] LABS: Folate 13.3 ng/mL (> or = 4.0); Vitamin B12 942 pg/mL (200-900)
[2023-05-18 14:38] LABS: Calcium (PTHI) 9.6 mg/dL (8.6-10.4); PTHI 129 pg/mL (16-77)
[2023-05-19 13:53] LABS: Zinc 93 mcg/dL (60-130)
[2023-05-21 22:59] LABS: Vitamin A 50 mcg/dL (38-98)
[2023-05-24 14:18] LABS: Vitamin B1 23 nmol/L (8-30)
== END 2023-05-16 07:03 | disposition home or self-care (01) ==
LOC: HO.LAB 07:02
PROVIDERS: PCP Internal Medicine; Visit Provider Physician Assistant
DX: I10 Essential (primary) hypertension (principal); E03.9 Hypothyroidism, unspecified; Z98.84 Bariatric surgery status
CPT/HCPCS: 36415; 80053; 80061; 82306; 82607; 82728; 82746; 83036; 83525; 83540; 83970; 84425; 84443; 84590; 84630; 85025; 86140

== ENCOUNTER 2023-05-21 11:25 | Outpatient (AMB) | payer MEDICARE, OTHER, SELFPAY ==
--- NOTE | 2023-05-21 11:27 | MHC.OFFVISWM ---
Intake VS Expanded 05/21/23 11:32 Height 5 ft 4.5 in Weight 235 lb 3.2 oz BMI 39.7 BP 130/61 Blood Pressure Location Rt brachial Blood Pressure Position Sitting Respiratory Rate 16 Pulse 67 Pulse Source Pulse Oximeter Temp 98.1 F Temperature Source Temporal Artery Scan Pulse Oximetry 94 Oxygen Delivery Method Room Air Body Fat 110.8 Body Fat Percentage 47.2 Free Fat Mass 124.2 Muscle Mass 118.0 Visceral Mass 17.0 Water Mass 87.6 BMR 1,738 Intake Visit Reasons: (OV) PO GBP 07/31/16 Allergies latex [LATEX] Allergy (Unknown, Verified 05/21/23 11:30) RASH Penicillins [PENICILLINS] Allergy (Unknown, Verified 05/21/23 11:30) DIFFICULTY BREATHING - YRS AGO tape Allergy (Unknown, Uncoded 05/21/23 11:30) redness and itching Medication List - Last Reconciled 05/21/23 by EMPERATRIZ Michele calcium carbonate (Calcium) 750 mg PO TID cetirizine mg PO DAILY cholecalciferol (vitamin D3) 3,000 units PO DAILY clotrimazole-betamethasone 1-0.05 % apply to affected areas topical 2 times a day; 10 days docusate sodium (Colace) 100 mg PO DAILY multivitamin 1 tab PO DAILY omeprazole 40 mg PO DAILY Synthroid (levothyroxine) 150 mcg PO DAILY 90 days NS vitamin A palmitate 10,000 units PO DAILY HPI HPI Comments History of Present Illness Details This?is a?73?yo female who is s/p RYGB 07/31/2016. Weight unchanged since last visit 8 months ago.? No complaints of nausea, emesis, abdominal pain or reflux, or constipation. Present meal plan includes: breakfast- Premier Protein premade shake, 30g lunch- same shake snack- Zone Perfect or Fitcrunch, or 2 eggs, or cheese stick, and add 1 serving fruit (berries, apples, kiwi, pear) or veg dinner- 3oz protein, 3 oz veg sometimes able to stick to plan, tries to get at least one shake a day, usually two; sometimes will have meal at lunchtime Exercise- [facility] gym, at least 3-4x/week for at least 30 min. Pt reports unable to exercise over the summer due to caring for young grandnieces and nephews. Using athlete's foot powder and clotrimazole for rashes of excess skin of abdomen. Excess skin feels heavy, uncomfortable, hard to keep clean, painful on lower back. [facility] Medical History Closed fracture of radial styloid Erythema intertrigo Furunculosis of multiple sites GERD (gastroesophageal reflux disease) H/O non anemic vitamin B12 deficiency Hypertension Hypothyroidism Lumbago with sciatica Menopause Obesity Tubular adenoma of colon Varicose veins of bilateral lower extremities with pain Surgical History History of colonoscopy History of Bradley-en-Y gastric bypass Hx laparoscopic cholecystectomy Family History Father No problems noted. Mother No problems noted. Sister Breast cancer Social History Housing: House Alcohol intake: current Alcohol intake frequency: holidays/special occasions only Alcohol type: wine Patient Tobacco Use Status: Former Tobacco user Quit Date: 1977 Cigarette Packs Per Day: 1 Cigarettes Per Day: 20 Years Smoked: 10 e-Cigarette/Vaping Use: Never Used Current occupational status: retired Cognitive needs: No Hearing needs: No Vision needs: Yes Physical Exam Vital Signs: Last Vital Signs Temp 98.1 F 05/21/23 11:32 Pulse 67 05/21/23 11:32 Resp 16 05/21/23 11:32 BP 130/61 05/21/23 11:32 Pulse Ox 94 05/21/23 11:32 Oxygen Delivery Method Room Air 05/21/23 11:32 BMI result Body Mass Index 39.7 Assessment & Plan Assessment & Plan (1) H/O gastric bypass: Code(s): Z98.84 - Bariatric surgery status (2) Obesity: Code(s): E66.9 - Obesity, unspecified Plan Pt is doing better with meal plan, getting adequate protein. She plans to restart her exercise regimen to help with weight loss, reports she would like to lose 30 lbs. Labs reviewed, vit A/B1 pending. RTC 6 months per pt preference. Patient is obese and is not considered stable at this time. I spent a total of 30 minutes reviewing/updating records, examining the patient and counseling the patient on weight management as detailed above. Coding Level of Care Code Est Pt Level 4 (01485) Diagnoses H/O gastric bypass Z98.84 Obesity E66.9
[2023-05-21 11:32] VITALS: BP 130/61; PULSE 67; RESP 16; TEMP 36.7; O2SAT 94; BMI 39.7
== END 2023-05-21 12:01 | disposition home or self-care (01) ==
PROVIDERS: PCP Internal Medicine; Visit Provider Physician Assistant Surgical
DX: E66.9 Obesity, unspecified (principal); Z68.39 Body mass index [BMI] 39.0-39.9, adult; Z90.3 Acquired absence of stomach [part of]; Z98.84 Bariatric surgery status
CPT/HCPCS: 99214

== ENCOUNTER → 2023-05-21 11:25 | Outpatient (BNVA) | payer MEDICARE, OTHER, SELFPAY | PROVIDERS: PCP Internal Medicine; Visit Provider Physician Assistant Surgical | DX: E66.9 Obesity, unspecified (principal); Z68.39 Body mass index [BMI] 39.0-39.9, adult; Z98.84 Bariatric surgery status | CPT/HCPCS: 99212 ==

== ENCOUNTER 2023-06-30 08:05 | Outpatient (REF) | payer MEDICARE, OTHER, SELFPAY ==
[2023-06-30 11:58] LABS: Vitamin D 25-OH Total 52.6 ng/mL (>30)
[2023-07-01 18:13] LABS: Calcium (PTHI) 9.2 mg/dL (8.6-10.4); PTHI 97 pg/mL (16-77)
== END 2023-06-30 08:06 | disposition home or self-care (01) ==
LOC: HO.HMGCLDS 08:05
PROVIDERS: PCP Internal Medicine; Visit Provider Internal Medicine Endocrinology, Diabetes & Metabolism
DX: E21.3 Hyperparathyroidism, unspecified (principal); E55.9 Vitamin D deficiency, unspecified
CPT/HCPCS: 36415; 82306; 83970

== ENCOUNTER 2023-07-02 10:30 | Outpatient (REF) | payer MEDICARE, OTHER, SELFPAY ==
[2023-07-02 16:41] LABS: Total Volume 24 Hour Urine 2325 mL
[2023-07-02 16:54] LABS: Creatinine, 24Hr Urine 1.1 G/Day (1.0-2.0); Creatinine, mg/dL 46.95
[2023-07-04 16:54] LABS: Calcium, 24 Hr Urine 121 mg/24 h; Calcium/Creatinine Ratio 104 mg/g creat (30-275); Creatinine 24Hr Urine 1.16 g/24 h (0.50-2.15)
== END 2023-07-02 10:31 | disposition home or self-care (01) ==
LOC: HO.HMGCLNP 10:30
PROVIDERS: PCP Internal Medicine; Visit Provider Internal Medicine Endocrinology, Diabetes & Metabolism
DX: E21.3 Hyperparathyroidism, unspecified (principal)
CPT/HCPCS: 82340; 82570

== ENCOUNTER 2023-07-17 07:37 | Outpatient (REF) | payer MEDICARE, OTHER, SELFPAY ==
[2023-07-17 11:24] LABS: Free T4 (Free Thyroxine) 1.17 ng/dL (0.71-1.85)
== END 2023-07-17 07:38 | disposition home or self-care (01) ==
LOC: HO.HMGCLDS 07:37
PROVIDERS: PCP Internal Medicine; Visit Provider Internal Medicine
DX: E03.9 Hypothyroidism, unspecified (principal)
CPT/HCPCS: 36415; 84439; 84443

== ENCOUNTER 2023-07-21 10:35 | Outpatient (AMB) | payer MEDICARE, OTHER, SELFPAY ==
[2023-07-21 11:20] VITALS: BP 142/70; PULSE 64; O2SAT 98; BMI 40.6
--- NOTE | 2023-07-21 11:20 | MHC.PC.OV ---
Vital Signs 07/21/23 11:20 Height 5 ft 4.5 in Weight 240 lb 8 oz BMI 40.6 BP 142/70 H Blood Pressure Location Rt brachial Position Sitting Pulse 64 Pulse Source Pulse Oximeter Pulse Oximetry (%) 98 Oxygen Delivery Method Room Air Intake Visit Reasons: 6m follow up Intake Note: pt is here to follow up for lab results Allergies latex [LATEX] Allergy (Unknown, Verified 07/21/23 11:47) RASH Penicillins [PENICILLINS] Allergy (Unknown, Verified 07/21/23 11:47) DIFFICULTY BREATHING - YRS AGO tape Allergy (Unknown, Uncoded 07/21/23 11:47) redness and itching Medication List - Last Reconciled 07/21/23 by Karla Vee MD calcium carbonate (Calcium) 750 mg PO TID cetirizine mg PO DAILY cholecalciferol (vitamin D3) 3,000 units PO DAILY clotrimazole-betamethasone 1-0.05 % apply to affected areas topical 2 times a day; 10 days docusate sodium (Colace) 100 mg PO DAILY multivitamin 1 tab PO DAILY mupirocin 2% 1 appl topical BID-TID omeprazole 40 mg PO DAILY Synthroid (levothyroxine) 150 mcg PO DAILY 90 days NS vitamin A palmitate 10,000 units PO DAILY Tobacco use date assessed: 07/21/23 Fall risk assessment: 1 Fall in past year Last assessed Fall Risk: 07/21/23 Dental Screening Dental Screen Date: 07/21/23 Did you have a dental visit in the last 12 months?: Yes Did you have a dental problem in the last 6 months where you did not have access to dental care?: No Was dental information given to patient?: Patient has dentist HPI 6m follow up HPI Details 73 year old lady with hypertension, hypothyroidism, chronic GERD, obesity with history of gastric bypass surgery, here today for follow-up. She has been feeling well, needs refills on her Synthroid and her mupirocin which she uses as needed for sores in her inguinal areas. She also complains of getting up frequently at night to use the bathroom to urinate. Admits to drinking more fluids, sometimes consisting of Tea and flavored water in the late afternoons and at night before going to bed, however. Laboratory Tests 05/16/23 07/17/23 07:27 07:41 WBC 5.0 Hgb 14.7 Hct 47.5 H Plt Count 189 TSH 0.70 Free T4 1.17 PFSH Medical History (Updated 07/21/23 @ 12:05 by Karla Vee MD) History of folliculitis Osteopenia of left femoral neck Closed fracture of radial styloid Lumbago with sciatica Varicose veins of bilateral lower extremities with pain Menopause Furunculosis of multiple sites Tubular adenoma of colon Obesity H/O non anemic vitamin B12 deficiency Erythema intertrigo GERD (gastroesophageal reflux disease) Hypertension Hypothyroidism Surgical History History of colonoscopy History of Bradley-en-Y gastric bypass Hx laparoscopic cholecystectomy Family History Father No problems noted. Mother No problems noted. Sister Breast cancer Housing: House Alcohol intake: current Alcohol intake frequency: holidays/special occasions only Alcohol type: wine Patient Tobacco Use Status: Former Tobacco user Quit Date: 1977 Cigarette Packs Per Day: 1 Cigarettes Per Day: 20 Years Smoked: 10 e-Cigarette/Vaping Use: Never Used Current occupational status: retired Cognitive needs: No Hearing needs: No Vision needs: Yes Questionnaire PHQ-9 Over the last 2 weeks, how often have you been bothered by any of the following problems? 1. Little interest or pleasure in doing things: not at all 2. Feeling down, depressed, or hopeless: not at all 3. Trouble falling or staying asleep, or sleeping too much: not at all 4. Feeling tired or having little energy: not at all 5. Poor appetite or overeating: not at all 6. Feeling bad about yourself - or that you are a failure or have let yourself or your family down: not at all 7. Trouble concentrating on things, such as reading the newspaper or watching television: not at all 8. Moving or speaking so slowly that other people could have noticed. Or the opposite - being so fidgety or restless that you have been moving around a lot more than usual: not at all 9. Thoughts that you would be better off or of hurting yourself in some way: not at all Total score: 0 Depression Screening Interpretation: Negative Depression Screening Done: Yes 30882 - PHQ-9 Billing: Yes Source: Developed by Drs. Mandeep Martinez, Jeny Almodovar, Braulio Hardy and colleagues, with an educational toby from [employer]. Thrive Questionnaire Date Thrive assessed: 01/20/23 AUDIT C Alcohol Use Questionnaire (AUDIT-C) 1. How often do you have a drink containing alcohol?: 2-4 times a month 2. How many drinks containing alcohol do you have on a typical day when you are drinking?: 1 or 2 3. How often do you have six or more drinks on one occasion?: Never Total Score: 2 JORGE-7 AMB Questionnaire JORGE-7 Date JORGE - 7 assessed: 07/21/23 Feeling nervous, anxious, or on edge: 0 = Not at all Not being able to stop or control worryin = Not at all Worrying too much about different things: 0 = Not at all Trouble relaxin = Not at all Being so restless that it is hard to sit still: 0 = Not at all Becoming easily annoyed or irritable: 0 = Not at all Feeling afraid as if something awful might happen: 0 = Not at all Total JORGE-7 score (0-4 normal; 5-9 mild; 10-14 moderate; 15-21 severe): 0 Source: Developed by Drs. Mandeep Martinez, Jeny Almodovar, Braulio Hardy and colleagues, with an educational toby from [employer]. JORGE-7 Assessment Billing JORGE-7 Assessment Tool: JORGE-7 Assessment 30964 Review of Systems Const Denies body aches, Denies fatigue, Denies fever(s), Denies headache(s) and Denies weakness Eyes Denies change in vision ENT Denies dizziness, Denies headache(s) and Denies nasal congestion Card Denies chest pain, Denies lightheadedness, Denies palpitations and Denies dyspnea Resp Denies chest congestion, Denies cough, Denies dyspnea and Denies wheezing GI Denies abdominal pain, Denies change in bowel habits and Denies heartburn Denies urinary frequency, Denies dysuria, Reports urinary incontinence (Occasional stress/urge incontinence) and Denies urinary urgency Musc Denies back pain, Denies myalgias, Denies arthralgias, Denies joint swelling, Denies muscle weakness and Denies stiffness Skin/Breast Reports as per HPI Neuro Denies dizziness, Denies headache(s) and Denies weakness Endo Denies fatigue, Denies polydipsia, Denies polyuria and Denies palpitations Omid/Lymph Denies easy bruising Aller/Immun Denies seasonal rhinorrhea and Denies wheezing Physical exam (Primary Care) Vital Signs: Last Vital Signs Pulse 64 07/21/23 11:20 BP 142/70 H 07/21/23 11:20 Pulse Ox 98 07/21/23 11:20 Oxygen Delivery Method Room Air 07/21/23 11:20 BMI result Body Mass Index 40.6 Tobacco/Smoking Status: Tobacco use Status Tobacco use date assessed 07/21/23 07/21/23 11:24 Patient Tobacco Use Status Former Tobacco user 07/21/23 11:22 e-Cigarette/Vaping Use Never Used 07/21/23 11:22 PHQ-9: PHQ-9 Score PHQ-9: Total score 0 07/21/23 11:37 Depression Screening Interpretation: Negative Thrive Assessment: Date of Thrive Assessment Date Thrive assessed 01/20/23 07/21/23 11:22 Const General: cooperative, comfortable and no acute distress Orientation/consciousness: patient oriented x3 HENMT Head: Yes normocephalic General nose exam: Normal external nose present Face and sinus: Yes face symmetric Mouth: Normal oral and palatal mucosa present, oropharynx normal and moist mucous membranes Eyes General: appearance normal, both eyes and all related structures Neck Neck: Yes full ROM, Yes no lymphadenopathy and Yes supple Resp Effort & Inspection: normal respiratory effort, no cough and no stridor Cardio Rhythm: regular rhythm GI Inspection: Yes Abdominal panniculus present and Yes obesity Palpation (GI): Soft to palpation, nontender, no guarding and no masses Skin General skin exam: no rashes or lesions noted and dry skin Neuro General: patient oriented x3, gait normal, moves all extremities, Normal light touch and pain sensation, no focal motor deficits and CN's II-XI intact bilaterally Cognition (Neuro): normal cognition Gait exam (Neuro): Normal gait present Extrem General: Yes full ROM, Yes no joint enlargement, Yes no pedal edema, Yes no calf tenderness and Yes normal gait Assessment and Plan Assessment & Plan (1) History of folliculitis: Code(s): Z87.2 - Personal history of diseases of the skin and subcutaneous tissue Plan: Refill sent for mupirocin ointment, to use as directed (2) Hypothyroidism: Code(s): E03.9 - Hypothyroidism, unspecified Qualifiers: Hypothyroidism type: acquired Qualified Code(s): E03.9 - Hypothyroidism, unspecified Plan: Recent thyroid levels are within normal limits, continue on current dose of Synthroid 50 mcg taken once a day in a.m. (3) GERD (gastroesophageal reflux disease): Code(s): K21.9 - Gastro-esophageal reflux disease without esophagitis Qualifiers: Esophagitis presence: esophagitis presence not specified Qualified Code(s): K21.9 - Gastro-esophageal reflux disease without esophagitis Plan: Gets heartburn symptoms infrequently, refill sent for omeprazole to take as needed once a day for heartburn symptoms Medications: New mupirocin 2% 1 appl topical BID-TID PRN 22 grams 0RF folliculitis Changed From omeprazole 40 mg PO DAILY 90 caps 1RF K21.9 - Gastro-esophageal reflux disease without esophagitis To omeprazole 40 mg PO DAILY PRN 90 caps 0RF heartburn K21.9 - Gastro-esophageal reflux disease without esophagitis Coding Level of Care Code Est Pt Level 3 (19439) Diagnoses History of folliculitis Z87.2 Acquired hypothyroidism E03.9 Hypothyroidism type: acquired Gastroesophageal reflux disease, unspecified whether esophagitis present K21.9 Esophagitis presence: esophagitis presence not specified Additional Codes JORGE-7 Assessment Billing - JORGE-7 Assessment Tool: JORGE-7 Assessment 05276 ([id number])
== END 2023-07-21 12:15 | disposition home or self-care (01) ==
PROVIDERS: Visit Provider Internal Medicine
DX: Z87.2 Personal history of diseases of the skin and subcutaneous tissue (principal); E03.9 Hypothyroidism, unspecified; K21.9 Gastro-esophageal reflux disease without esophagitis
CPT/HCPCS: 99213

== ENCOUNTER 2023-07-29 07:59 | Outpatient (AMB) | payer MEDICARE, OTHER, SELFPAY ==
--- NOTE | 2023-07-29 08:03 | MHC.OFFVIS ---
Intake Vital Signs 07/29/23 08:05 Height 5 ft 4.5 in Weight 240 lb 8.389 oz BMI 40.6 BP 120/68 Blood Pressure Location Lt brachial Position Sitting Pulse 72 Pulse Source Pulse Oximeter Intake Visit Reasons: secondary hyperparathyroidism Intake Note: Patient present for Secondary Hyperparathyroidism follow up visit. Infection Control Manager Required: No Accompanied by: Self / Same As Patient Allergies latex [LATEX] Allergy (Unknown, Verified 07/29/23 08:45) RASH Penicillins [PENICILLINS] Allergy (Unknown, Verified 07/29/23 08:45) DIFFICULTY BREATHING - YRS AGO tape Allergy (Unknown, Uncoded 07/21/23 11:47) redness and itching HPI HPI Comments History of Present Illness Details 73 YO F with PMHx bariatric surgery who is seen in consultation at the request of PCP for Increased PTH First noted to haveincreased PTH in just foind out . Currently using Calcium supplement since 500 mg TID since bariatric surgery . Takes 1500 IU of Vitamin D daily. Not Currently using HCTZ. off for yrs Kidney stones: No Osteoporosis:No osteopenia in 2019 History of [place] use: No Biotin use: No Family history of high calcium or kidney stones: No Renal imaging: [] DXA: Labs: Recently had a left wrist fracture after a hard fall Workup revealed borderline low vitamin-D level with elevated PTH. PTH remains elevated with normal vitamin-D and low 24 hour urine for calcium suggesting malabsorption of calcium [facility] Medical History (Updated 07/21/23 @ 12:05 by Karla Vee MD) History of folliculitis Osteopenia of left femoral neck Closed fracture of radial styloid Lumbago with sciatica Varicose veins of bilateral lower extremities with pain Menopause Furunculosis of multiple sites Tubular adenoma of colon Obesity H/O non anemic vitamin B12 deficiency Erythema intertrigo GERD (gastroesophageal reflux disease) Hypertension Hypothyroidism Surgical History History of colonoscopy History of Bradley-en-Y gastric bypass Hx laparoscopic cholecystectomy Family History Father No problems noted. Mother No problems noted. Sister Breast cancer Social History Housing: House Alcohol intake: current Alcohol intake frequency: holidays/special occasions only Alcohol type: wine Patient Tobacco Use Status: Former Tobacco user Quit Date: 1977 Cigarette Packs Per Day: 1 Cigarettes Per Day: 20 Years Smoked: 10 e-Cigarette/Vaping Use: Never Used Current occupational status: retired Cognitive needs: No Hearing needs: No Vision needs: Yes Physical Exam Vital Signs: Last Vital Signs Pulse 72 07/29/23 08:05 BP 120/68 07/29/23 08:05 BMI result Body Mass Index 40.6 Assessment & Plan Assessment & Plan (1) Parathyroid hormone excess: Code(s): E21.3 - Hyperparathyroidism, unspecified Plan: This is a 73-year-old white female with history of gastric bypass surgery found to have elevated PTH. 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 Calcium is low normal. Less likely is the presence of normocalcemia primary hyperparathyroidism. PTH appears to be improving with increase calcium but not normal as Plan is to increase to 1000 mg TID recheck calcium, albumin, PTH, 25 hydroxy vitamin-D and 24 hour urine for calcium and creatinine in 6 months . Orders: Orders Calcium 6 Months E21.3 - Hyperparathyroidism, unspecified Albumin Level 6 Months E21.3 - Hyperparathyroidism, unspecified Parathyroid Hormone Intact 6 Months E21.3 - Hyperparathyroidism, unspecified Vitamin D 25-OH Total 6 Months E21.3 - Hyperparathyroidism, unspecified Calcium, 24 Hr Ur 6 Months E21.3 - Hyperparathyroidism, unspecified Creatinine, 24 Hr Group 6 Months E21.3 - Hyperparathyroidism, unspecified Medications: Changed From calcium carbonate (Calcium) 1,000 mg PO TID To calcium carbonate (Calcium) 1,000 mg (1.6667 x 600 mg calcium (1,500 mg)) PO TID 150 tabs 5RF 30 days Coding Level of Care Code Est Pt Level 3 (30249) Diagnoses Parathyroid hormone excess E21.3
[2023-07-29 08:05] VITALS: BP 120/68; PULSE 72; BMI 40.6
== END 2023-07-29 08:58 | disposition home or self-care (01) ==
PROVIDERS: PCP Internal Medicine; Visit Provider Internal Medicine Endocrinology, Diabetes & Metabolism
DX: E21.3 Hyperparathyroidism, unspecified (principal)
CPT/HCPCS: 99213

== ENCOUNTER → 2023-07-29 07:59 | Outpatient (BNVA) | payer MEDICARE, OTHER, SELFPAY | PROVIDERS: PCP Internal Medicine; Visit Provider Internal Medicine Endocrinology, Diabetes & Metabolism | DX: E21.3 Hyperparathyroidism, unspecified (principal) | CPT/HCPCS: 99212 ==

== ENCOUNTER 2023-09-19 10:11 | Outpatient (AMB) | payer MEDICARE, OTHER, SELFPAY ==
--- NOTE | 2023-09-19 11:20 | AM.OFFWIN_ITS ---
Intake Vital Signs 09/19/23 11:22 Height 5 ft 4.5 in Weight 245 lb BMI 41.4 BP 122/72 Blood Pressure Location Lt brachial Position Sitting Pulse 69 Pulse Source Pulse Oximeter Temp 98 F Temp Source Oral Pulse Oximetry (%) 96 Oxygen Delivery Method Room Air Intake Visit Reasons: EP ?UTI Intake Note: Patient is here with lower abdominal pressure, burning, since Thursday. Patient Tobacco Use Status: Former Tobacco user Quit Date: 1977 Allergies latex [LATEX] Allergy (Unknown, Verified 09/19/23 11:34) RASH Penicillins [PENICILLINS] Allergy (Unknown, Verified 09/19/23 11:34) DIFFICULTY BREATHING - YRS AGO tape Allergy (Unknown, Uncoded 09/19/23 11:34) redness and itching Medication List - Last Reconciled 09/19/23 by Brielle Pickens CNP calcium carbonate 1,000 mg (2 x 500 mg calcium (1,250 mg)) PO TID 30 days cetirizine mg PO DAILY cholecalciferol (vitamin D3) 3,000 units PO DAILY clotrimazole-betamethasone 1-0.05 % apply to affected areas topical 2 times a day; 10 days docusate sodium (Colace) 100 mg PO DAILY multivitamin 1 tab PO DAILY mupirocin 2% 1 appl topical BID-TID PRN omeprazole 40 mg PO DAILY PRN Synthroid (levothyroxine) 150 mcg PO DAILY 90 days NS vitamin A palmitate 10,000 units PO DAILY Do you need a note to return to daycare/school/sports/work: No HPI HPI Comments History of Present Illness Details 73-year-old female presents to walk-in [facility] for complaint of lower abdominal pressure, urinary frequency and burning x4 days. She denies fever, chills, CP, SOB, abdominal pain, nausea, vomiting, diarrhea, flank pain, or hematuria. [facility] Medical History History of folliculitis Osteopenia of left femoral neck Closed fracture of radial styloid Lumbago with sciatica Varicose veins of bilateral lower extremities with pain Menopause Furunculosis of multiple sites Tubular adenoma of colon Obesity H/O non anemic vitamin B12 deficiency Erythema intertrigo GERD (gastroesophageal reflux disease) Hypertension Hypothyroidism Surgical History History of colonoscopy History of Bradley-en-Y gastric bypass Hx laparoscopic cholecystectomy Family History Father No problems noted. Mother No problems noted. Sister Breast cancer Social History Housing: House Alcohol intake: current Alcohol intake frequency: holidays/special occasions only Alcohol type: wine Patient Tobacco Use Status: Former Tobacco user Quit Date: 1977 Cigarette Packs Per Day: 1 Cigarettes Per Day: 20 Years Smoked: 10 e-Cigarette/Vaping Use: Never Used Current occupational status: retired Cognitive needs: No Hearing needs: No Vision needs: Yes Review of Systems Const All systems reviewed & are unremarkable except as noted in HPI and below Physical Exam Vital Signs: Last Vital Signs Temp 98 F 09/19/23 11:22 Pulse 69 09/19/23 11:22 BP 122/72 09/19/23 11:22 Pulse Ox 96 09/19/23 11:22 Oxygen Delivery Method Room Air 09/19/23 11:22 BMI result Body Mass Index 41.4 Const General: healthy appearing and no acute distress Nutritional Appearance: overweight Orientation/consciousness: patient oriented x3 Limitations: no limitations HEENT Head: Yes normal to inspection, Yes normocephalic and Yes atraumatic Mouth: moist mucous membranes Eyes General: appearance normal, both eyes and all related structures Resp Effort & Inspection: normal respiratory effort, no cough, no respiratory distress and not tachypneic Auscultation: clear to auscultation bilaterally Cardio Rate: regular rate Rhythm: regular rhythm Heart sounds: S1 normal heart sound present and S2 normal heart sound present Peripheral pulses: Peripheral pulses 2+ throughout GI Palpation (GI): Soft to palpation, nontender and no guarding Auscultation: normal bowel sounds General: Yes no CVA tenderness Back/Spine/Pelvis Back: no CVA tenderness Skin General skin exam: no rashes or lesions noted, elasticity normal and turgor normal Neuro General: patient oriented x3, gait normal, moves all extremities and no focal motor deficits Extrem General: Yes normal to inspection, Yes capillary refill normal and Yes no clubbing, cyanosis or edema Psych Appearance: well kempt Mental Status: mental status grossly normal Attitude: cooperative Results AMB Urinalysis, Automated UA Leukoctes 0 Juan/uL Last Edit by Ksenia Egan CMA on 09/19/23 11:07 UA Nitrite Negative Last Edit by Ksenia Egan CMA on 09/19/23 11:07 UA Urobilinogen 0.2 mg/dL Last Edit by Ksenia Egan CMA on 09/19/23 11:07 UA Protein 0 mg/dL Last Edit by Ksenia Egan CMA on 09/19/23 11:07 UA pH 6.0 Last Edit by Ksenia Egan CMA on 09/19/23 11:07 UA Blood 0 Robbin/uL Last Edit by Ksenia Egan CMA on 09/19/23 11:07 UA Specific [place] 1.010 Last Edit by Ksenia Egan CMA on 09/19/23 11:0 7 UA Ketone Negative Last Edit by Ksenia Egan CMA on 09/19/23 11:07 UA Bilirubin 0 mg/dL Last Edit by Ksenia Egan CMA on 09/19/23 11:07 UA Glucose 0 mg/dL Last Edit by Ksenia Egan CMA on 09/19/23 11:07 Results Reviewed Results Reviewed: Laboratory Last Values Urine pH (Auto) 6.0 09/19/23 11:04 Specific [place] (Auto) 1.010 09/19/23 11:04 Urine Protein (Auto) 0 mg/dL 09/19/23 11:04 Glucose (UA)(Auto) 0 mg/dL 09/19/23 11:04 Urine Ketones (Auto) Negative 09/19/23 11:04 Urine Blood (Auto) 0 Robbin/uL 09/19/23 11:04 Urine Nitrite (Auto) Negative 09/19/23 11:04 Urine Bilirubin (Auto) 0 mg/dL 09/19/23 11:04 Urine Urobilinogen (Auto) 0.2 mg/dL 09/19/23 11:04 Leukocyte Esterase (Auto) 0 Juan/uL 09/19/23 11:04 Assessment & Plan Assessment & Plan (1) UTI (urinary tract infection): Code(s): N39.0 - Urinary tract infection, site not specified Qualifiers: Urinary tract infection type: acute cystitis Hematuria presence: without hematuria Qualified Code(s): N30.00 - Acute cystitis without hematuria Plan: 73-year-old female seen today in walk-in clinic for complaint of lower abdominal pressure, urinary frequency, urinary urgency, dysuria, and denies hematuria, flank pain, fever, and chills. Review of urinalysis negative nitrates or Leukocyte Esterase; Due to age, will treat empirically with nitrofurantoin, 100 mg po bid x 7 days, encouraged to take with food to reduce GI upset. Will treat dysuria with Pyridium, 1 tablet po tid x 2 days. Education provided on change in color of urine to orange due to medication, and not to be concerned. Encouraged to drink plenty of fluids to maintain hydration. Encouraged to return to office for worsening or unresolved symptoms or f/u with PCP (2) Dysuria: Code(s): R30.0 - Dysuria Plan: Review of urinalysis negative nitrates or Leukocyte Esterase; Due to age, will treat empirically with nitrofurantoin, 100 mg po bid x 7 days, encouraged to take with food to reduce GI upset. Will treat dysuria with Pyridium, 1 tablet po tid x 2 days. Education provided on change in color of urine to orange due to medication, and not to be concerned. Encouraged to drink plenty of fluids to maintain hydration. Encouraged to return to office for worsening or unresolved symptoms or f/u with PCP Orders: Orders AMB Urinalysis Automated 09/19/23 R30.0 - Dysuria Medications: New nitrofurantoin monohyd/m-cryst 100 mg (Macrobid) must administer with a meal/food 100 mg PO BID 14 caps 0RF N39.0 - Urinary tract infection, site not specified phenazopyridine (Pyridium) 100 mg PO TID PRN 6 tabs 0RF pain R30.0 - Dysuria Coding Level of Care Code Est Pt Level 3 (74761) Diagnoses Acute cystitis without hematuria N30.00 Urinary tract infection type: acute cystitis Hematuria presence: without hematuria Dysuria R30.0
[2023-09-19 11:22] VITALS: BP 122/72; PULSE 69; TEMP 36.6; O2SAT 96; BMI 41.4
== END 2023-09-19 11:39 | disposition home or self-care (01) ==
PROVIDERS: PCP Internal Medicine; Visit Provider Nurse Practitioner Acute Care
DX: R30.0 Dysuria (principal)
CPT/HCPCS: 81003; 99213

== ENCOUNTER 2024-01-06 08:48 | Outpatient (REF) | payer MEDICARE, OTHER, SELFPAY ==
[2024-01-06 11:00] LABS: Albumin Level 3.9 g/dL (3.5-5.0); Calcium 9.4 mg/dL (8.4-10.2)
[2024-01-06 11:12] LABS: Vitamin D 25-OH Total 66.1 ng/mL (>30)
[2024-01-06 11:17] LABS: Parathyroid Hormone Intact 152.1 pg/mL (8.7-77.1)
== END 2024-01-06 08:49 | disposition home or self-care (01) ==
LOC: HO.HMGCLDS 08:48
PROVIDERS: PCP Internal Medicine; Referring Provider Internal Medicine; Visit Provider Internal Medicine Endocrinology, Diabetes & Metabolism
DX: E21.3 Hyperparathyroidism, unspecified (principal)
CPT/HCPCS: 36415; 82040; 82306; 82310; 83970

== ENCOUNTER 2024-01-08 08:33 | Outpatient (REF) | payer MEDICARE, OTHER, SELFPAY ==
[2024-01-08 10:32] LABS: MANUAL DIFF FLAG NO
[2024-01-08 10:39] LABS: Basophils Percent Auto 0.7 % (0-2); Eosinophils Absolute Auto 0.1 X10*3/uL (0.0-0.4); Eosinophils Percent Auto 2.4 % (0-4); Hematocrit 46.9 % (37.0-47.0); Hemoglobin 15.3 g/dl (12.0-16.0); Imm Gran Abs Auto 0.01 X10*3/uL (0.00-0.03); Imm Gran Pct Auto 0.2 % (0.0-0.4); Lymphocytes Absolute Auto 1.6 X10*3/uL (1.2-4.9); Lymphocytes Percent Auto 38.9 % (20-40); Mean Corpuscular HGB Conc 32.6 g/dl (31.0-35.0); Mean Corpuscular Hemoglobin 30.4 pg (27.0-33.0); Mean Corpuscular Volume 93.2 fL (80.0-98.0); Monocytes Absolute Auto 0.4 X10*3/uL (0.1-1.2); Monocytes Percent Auto 8.9 % (2-11); Neutrophils Percent Auto 48.9 % (45-73); Platelet Count 184 X10*3/uL (160-400); Red Blood Count 5.03 X10*6/uL (4.20-5.50); Red Cell Distribution Width 13.2 % (11.0-16.0); White Blood Count 4.2 X10*3/uL (4.8-10.8)
[2024-01-08 11:02] LABS: Estimated Average Glucose 100 mg/dL; Hemoglobin A1c % 5.1 % (<6.0)
[2024-01-08 11:21] LABS: Alanine Aminotransferase 27 U/L (0-31); Albumin Level 3.9 g/dL (3.5-5.0); Alkaline Phosphatase 118 U/L (39-117); Anion Gap 13 (12-20); Aspartate Amino Transferase 27 U/L (5-31); Bilirubin Total 0.7 mg/dL (0.0-1.0); Blood Urea Nitrogen 15 mg/dL (9-16); C Reactive Protein 0.19 mg/dL (< or = 0.50); Calcium 9.4 mg/dL (8.4-10.2); Carbon Dioxide 29 mmol/L (22-29); Chloride 103 mmol/L (96-108); Cholesterol 174 mg/dL (<200); Estimated Glomerular Filt Rate > 60; Glucose Random 95 mg/dL (60-115); HDL Cholesterol 59 mg/dL (>40); Iron 91 mcg/dL (30-160); LDL Cholesterol Calculated 90 mg/dL (<100); Percent Iron Saturation 29 % (15-50); Potassium 4.6 mmol/L (3.3-5.1); Sodium 140 mmol/L (135-145); Total Iron Binding Capacity 316 mcg/dL (228-428); Total Protein 7.2 g/dL (6.5-8.0); Triglycerides 126 mg/dL (<150); Unsaturated Iron Binding 225 ug/dL
[2024-01-08 11:24] LABS: Ferritin 105 ng/mL (10-250); Insulin 13 uU/mL (2-29); TSH reflex Free T4 1.34 uIU/mL (0.32-4.0)
[2024-01-08 11:31] LABS: Folate 14.1 ng/mL (> or = 4.0); Vitamin B12 906 pg/mL (200-900)
[2024-01-08 11:33] LABS: Creatinine, mg/dL 43.74
[2024-01-08 14:57] LABS: Creatinine, 24Hr Urine 1.1 G/Day (1.0-2.0); Total Volume 24 Hour Urine 2425 mL
[2024-01-11 17:09] LABS: Calcium, 24 Hr Urine 209 mg/24 h; Calcium/Creatinine Ratio 205 mg/g creat (30-275); Creatinine 24Hr Urine 1.02 g/24 h (0.50-2.15)
[2024-01-13 02:44] LABS: Zinc 74 mcg/dL (60-130)
[2024-01-13 06:09] LABS: Vitamin A 46 mcg/dL (38-98)
[2024-01-14 15:48] LABS: Vitamin B1 23 nmol/L (8-30)
== END 2024-01-08 08:34 | disposition home or self-care (01) ==
LOC: HO.HMGCLDS 08:33
PROVIDERS: Internal Medicine Endocrinology, Diabetes & Metabolism; PCP Internal Medicine; Visit Provider Physician Assistant Surgical
DX: Z98.84 Bariatric surgery status (principal); E21.3 Hyperparathyroidism, unspecified
CPT/HCPCS: 36415; 80053; 80061; 82340; 82570; 82607; 82728; 82746; 83036; 83525; 83540; 84425; 84443; 84590; 84630; 85025; 86140

== ENCOUNTER 2024-01-09 08:06 | Outpatient (REF) | payer MEDICARE, OTHER, SELFPAY ==
--- NOTE | ~2024-01-09 | MM_ITS ---
EXAMINATION: MM SCREENING DIGITAL BREAST TOMOSYNTHESIS, BILATERAL CLINICAL INFORMATION: Screening. Asymptomatic. COMPARISON: Mammography: This study is compared with prior exams dating back to 2019. TECHNIQUE: Digital breast tomosynthesis is performed in both the craniocaudal and mediolateral oblique views along with computer-aided detection (CAD). Synthesized 2D images are generated from the tomosynthesis. FINDINGS: There are scattered areas of fibroglandular density (ACR BI-RADS breast composition Category b). There are no significant masses, abnormal calcifications, or other abnormalities. There are bilateral, scattered benign calcifications. These are unchanged. MM/MM tomosynthesis screening BI IMPRESSION: No mammographic evidence of malignancy. ASSESSMENT: BI-RADS BI-RADS 2 - Benign Findings RECOMMENDATION: Routine annual mammography screening. 1 year F/U This examination should not preclude the clinical evaluation of a suspicious palpable abnormality. This patient's information was entered into a reminder system with a target due date for their next mammogram.
== END 2024-01-09 08:07 | disposition home or self-care (01) ==
LOC: HO.MAMMO 08:06
PROVIDERS: PCP Internal Medicine; Visit Provider Internal Medicine
DX: Z12.31 Encounter for screening mammogram for malignant neoplasm of breast (principal)
CPT/HCPCS: 77063; 77067

== ENCOUNTER → 2024-01-09 08:15 | Outpatient (BNV) | payer MEDICARE, OTHER, SELFPAY | PROVIDERS: PCP Internal Medicine; Visit Provider Radiology Diagnostic Radiology | DX: Z12.31 Encounter for screening mammogram for malignant neoplasm of breast (principal) | CPT/HCPCS: 77063; 77067 ==

== ENCOUNTER 2024-01-27 12:21 | Outpatient (AMB) | payer MEDICARE, OTHER, SELFPAY ==
--- NOTE | 2024-01-27 12:22 | MHC.OFFVISWM ---
VS Expanded 01/27/24 12:29 BP 143/80 H Blood Pressure Location Rt brachial Blood Pressure Position Sitting Pulse 65 Pulse Source Pulse Oximeter Temp 98.1 F Temperature Source Temporal Artery Scan Pulse Oximetry 94 Oxygen Delivery Method Room Air Height 5 ft 4.5 in Weight 239 lb 3.2 oz BMI 40.4 Body Fat % 47.3 Body Fat Mass 113.0 Fat Free Mass 125.8 Visceral Fat Rating 17.0 Body Water % 37.2 Body Water Mass 88.8 Muscle Mass/Score 119.4 Basal Metabolic Rate/Score 1,764 Intake Visit Reasons: (OV) PO GBP 07/31/16 Allergies latex [LATEX] Allergy (Unknown, Verified 01/27/24 12:25) RASH Penicillins [PENICILLINS] Allergy (Unknown, Verified 01/27/24 12:25) DIFFICULTY BREATHING - YRS AGO tape Allergy (Unknown, Uncoded 09/19/23 11:34) redness and itching Medication List - Last Reconciled 01/27/24 by EMPERATRIZ Michele calcium carbonate 1,000 mg (2 x 500 mg calcium (1,250 mg)) PO TID 30 days cetirizine mg PO DAILY cholecalciferol (vitamin D3) 3,000 units PO DAILY clotrimazole-betamethasone 1-0.05 % apply to affected areas topical 2 times a day; 10 days docusate sodium (Colace) 100 mg PO DAILY multivitamin 1 tab PO DAILY mupirocin 2% 1 appl topical BID-TID PRN nitrofurantoin monohyd/m-cryst 100 mg (Macrobid) 100 mg PO BID omeprazole 40 mg PO DAILY PRN phenazopyridine (Pyridium) 100 mg PO TID PRN 6 doses Synthroid (levothyroxine) 150 mcg PO DAILY 90 days NS vitamin A palmitate 10,000 units PO DAILY HPI Comments Details: This?is a?73?yo female who is s/p RYGB 07/31/2016. Weight gain of 4lbs since last OV.? No complaints of nausea, emesis, abdominal pain or reflux, or constipation. Pt reports was up to 245lbs, has been working hard to lose. Present meal plan includes: breakfast- Premier Protein premade shake, 30g lunch- same shake snack- Zone Perfect or Fitcrunch, or 2 eggs, or cheese stick, and add 1 serving fruit (berries, apples, kiwi, pear) or veg dinner- 3oz protein, 3oz veg Exercise- [facility] not [facility] using [facility] has not been swimming, got out of routine planning to set up a gym at home, has saved [employer] workout videos [facility] Medical History History of folliculitis Osteopenia of left femoral neck Closed fracture of radial styloid Lumbago with sciatica Varicose veins of bilateral lower extremities with pain Menopause Furunculosis of multiple sites Tubular adenoma of colon Obesity H/O non anemic vitamin B12 deficiency Erythema intertrigo GERD (gastroesophageal reflux disease) Hypertension Hypothyroidism Surgical History History of colonoscopy History of Bradley-en-Y gastric bypass Hx laparoscopic cholecystectomy Family History Father No problems noted. Mother No problems noted. Sister Breast cancer Social History Housing: House Alcohol intake: current Alcohol intake frequency: holidays/special occasions only Alcohol type: wine Patient Tobacco Use Status: Former Tobacco user Cigarette Packs Per Day: 1 Cigarettes Per Day: 20 Years Smoked: 10 e-Cigarette/Vaping Use: Never Used Current occupational status: retired Cognitive needs: No Hearing needs: No Vision needs: Yes Physical Exam Vital Signs: Last Vital Signs Temp 98.1 F 01/27/24 12:29 Pulse 65 01/27/24 12:29 BP 143/80 H 01/27/24 12:29 Pulse Ox 94 01/27/24 12:29 Oxygen Delivery Method Room Air 01/27/24 12:29 BMI result Body Mass Index 40.4 Assessment & Plan Assessment & Plan (1) H/O gastric bypass: Code(s): Z98.84 - Bariatric surgery status Category: Surgical (2) Morbid obesity: Code(s): E66.01 - Morbid (severe) obesity due to excess calories Category: Medical Plan Discussed the importance of exercise for weight loss; pt is aware and agrees to try to start walking, working out at home with exercise that does not aggravate knee pain. Interested in savory protein bars/less sweet, researched some options. Gave pt my phone # to communicate between appts, encouraged her to reach out with any questions. Labs reviewed. RTC 6 months. Patient is morbidly obese and is not considered stable at this time. I spent a total of 30 minutes reviewing/updating records, examining the patient and counseling the patient on weight management as detailed above.
[2024-01-27 12:29] VITALS: BP 143/80; PULSE 65; TEMP 36.7; O2SAT 94; BMI 40.4
== END 2024-01-27 13:15 | disposition home or self-care (01) ==
PROVIDERS: PCP Internal Medicine; Visit Provider Physician Assistant Surgical
DX: E66.01 Morbid (severe) obesity due to excess calories (principal); Z68.41 Body mass index [BMI] 40.0-44.9, adult; Z98.84 Bariatric surgery status
CPT/HCPCS: 99214

== ENCOUNTER → 2024-01-27 12:21 | Outpatient (BNVA) | payer MEDICARE, OTHER, SELFPAY | PROVIDERS: PCP Internal Medicine; Visit Provider Physician Assistant Surgical | DX: E66.01 Morbid (severe) obesity due to excess calories (principal); Z68.41 Body mass index [BMI] 40.0-44.9, adult; Z98.84 Bariatric surgery status | CPT/HCPCS: 99212 ==

== ENCOUNTER 2024-02-01 07:58 | Outpatient (AMB) | payer MEDICARE, OTHER, SELFPAY ==
--- NOTE | 2024-02-01 08:00 | MHC.OFFVIS ---
Vital Signs 02/01/24 08:01 Height 5 ft 4.5 in Weight 244 lb 7.882 oz BMI 41.3 BP 144/72 H Blood Pressure Location Rt brachial Position Sitting Pulse 67 Pulse Source Pulse Oximeter Intake Visit Reasons: f/u secondary hyperparathyroidism-confirmed Intake Note: Patient presents today for Secondary Hyperparathyroidism follow up visit. Histopath Tech Required: No Accompanied by: Self / Same As Patient Allergies latex [LATEX] Allergy (Unknown, Verified 02/01/24 08:05) RASH Penicillins [PENICILLINS] Allergy (Unknown, Verified 02/01/24 08:05) DIFFICULTY BREATHING - YRS AGO tape Allergy (Unknown, Uncoded 02/01/24 08:05) redness and itching Medication List - Last Reconciled 02/01/24 by Mandeep Du MD calcium carbonate 1,000 mg (2 x 500 mg calcium (1,250 mg)) PO TID 30 days cetirizine mg PO DAILY cholecalciferol (vitamin D3) 3,000 units PO DAILY clotrimazole-betamethasone 1-0.05 % apply to affected areas topical 2 times a day; 10 days docusate sodium (Colace) 100 mg PO DAILY multivitamin 1 tab PO DAILY mupirocin 2% 1 appl topical BID-TID PRN nitrofurantoin monohyd/m-cryst 100 mg (Macrobid) 100 mg PO BID omeprazole 40 mg PO DAILY PRN phenazopyridine (Pyridium) 100 mg PO TID PRN 6 doses Synthroid (levothyroxine) 150 mcg PO DAILY 90 days NS vitamin A palmitate 10,000 units PO DAILY HPI Comments Details: 73 YO F with PMHx bariatric surgery who is seen in consultation at the request of PCP for Increased PTH First noted to haveincreased PTH in just foind out . Currently using Calcium supplement since 500 mg TID since bariatric surgery . Takes 1500 IU of Vitamin D daily. Not Currently using HCTZ. off for yrs Kidney stones: No Osteoporosis:No osteopenia in 2019 History of [place] use: No Biotin use: No Family history of high calcium or kidney stones: No Renal imaging: [] DXA: Labs: Recently had a left wrist fracture after a hard fall Workup revealed borderline low vitamin-D level with elevated PTH. PTH remains elevated with normal vitamin-D and low 24 hour urine for calcium suggesting malabsorption of calcium. Calcium intake was increased and 24 hour urine is now within normal limits PFSH Medical History History of folliculitis Osteopenia of left femoral neck Closed fracture of radial styloid Lumbago with sciatica Varicose veins of bilateral lower extremities with pain Menopause Furunculosis of multiple sites Tubular adenoma of colon Obesity H/O non anemic vitamin B12 deficiency Erythema intertrigo GERD (gastroesophageal reflux disease) Hypertension Hypothyroidism Surgical History History of colonoscopy History of Bradley-en-Y gastric bypass Hx laparoscopic cholecystectomy Family History Father No problems noted. Mother No problems noted. Sister Breast cancer Social History Housing: House Alcohol intake: current Alcohol intake frequency: holidays/special occasions only Alcohol type: wine Patient Tobacco Use Status: Former Tobacco user Cigarette Packs Per Day: 1 Cigarettes Per Day: 20 Years Smoked: 10 e-Cigarette/Vaping Use: Never Used Current occupational status: retired Cognitive needs: No Hearing needs: No Vision needs: Yes Physical Exam Vital Signs: Last Vital Signs Pulse 67 02/01/24 08:01 BP 144/72 H 02/01/24 08:01 BMI result Body Mass Index 41.3 Assessment & Plan Assessment & Plan (1) Parathyroid hormone excess: Code(s): E21.3 - Hyperparathyroidism, unspecified Category: Medical Plan: This is a 73-year-old white female with history of gastric bypass surgery found to have elevated PTH. 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 Calcium is low normal. Less likely is the presence of normocalcemia primary hyperparathyroidism. PTH appears to be improving with increase calcium but not normal . 24 hour urine for calcium is now within normal limits s Plan is to repeat PTH, 25 hydroxy vitamin-D, calcium and albumin as well as ionized calcium at [facility] to verify the PTH is accurate. Will also order renal ultrasound to rule out nephrolithiasis. Otherwise, patient does not have osteoporosis on bone density and if she had normocalcic primary hyperparathyroidism does not meet criteria for surgical exploration and would follow Orders: Orders US renal BI Today E21.3 - Hyperparathyroidism, unspecified Calcium Today E21.3 - Hyperparathyroidism, unspecified Albumin Level Today E21.3 - Hyperparathyroidism, unspecified Calcium, Ionized Today E21.3 - Hyperparathyroidism, unspecified Parathyroid Hormone Intact Today E21.3 - Hyperparathyroidism, unspecified Vitamin D 25-OH Total Today E21.3 - Hyperparathyroidism, unspecified Coding Level of Care Code Est Pt Level 3 (63255) Diagnoses Parathyroid hormone excess E21.3
[2024-02-01 08:01] VITALS: BP 144/72; PULSE 67; BMI 41.3
== END 2024-02-01 08:27 | disposition home or self-care (01) ==
PROVIDERS: PCP Internal Medicine; Visit Provider Internal Medicine Endocrinology, Diabetes & Metabolism
DX: E21.3 Hyperparathyroidism, unspecified (principal)
CPT/HCPCS: 99213

== ENCOUNTER → 2024-02-01 07:58 | Outpatient (BNVA) | payer MEDICARE, OTHER, SELFPAY | PROVIDERS: PCP Internal Medicine; Visit Provider Internal Medicine Endocrinology, Diabetes & Metabolism | DX: E21.3 Hyperparathyroidism, unspecified (principal) | CPT/HCPCS: 99212 ==

== ENCOUNTER 2024-02-05 11:23 | Outpatient (REF) | payer MEDICARE, OTHER, SELFPAY ==
--- NOTE | ~2024-02-05 | US_ITS ---
EXAMINATION: US RETROPERITONEAL LIMITED (RENAL ONLY) CLINICAL INFORMATION: Primary hyperparathyroidism. Rule out nephrolithiasis. COMPARISON: Ultrasound abdomen with elastography 03/24/2016 TECHNIQUE: Real-time imaging of the kidneys. FINDINGS: RIGHT KIDNEY: 11.9 x 4.9 x 6.0 cm (SAG x AP x TRV). The kidney is normal in size, contour, and echogenicity. Renal cortical thickness is normal. No calculi or focal parenchymal lesions. No hydronephrosis. LEFT KIDNEY: 10.9 x 5.3 x 6.1 cm (SAG x AP x TRV). The kidney is normal in size, contour, and echogenicity. Renal cortical thickness is normal. No calculi or focal parenchymal lesions. No hydronephrosis. US/US renal BI IMPRESSION: No visible nephrolithiasis. No hydronephrosis.
== END 2024-02-05 11:24 | disposition home or self-care (01) ==
LOC: HO.HMGCX 11:23
PROVIDERS: PCP Internal Medicine; Visit Provider Internal Medicine Endocrinology, Diabetes & Metabolism
DX: E21.0 Primary hyperparathyroidism (principal)
CPT/HCPCS: 76775

== ENCOUNTER 2024-02-08 08:02 | Outpatient (AMB) | payer MEDICARE, OTHER, SELFPAY ==
[2024-02-08 08:06] VITALS: BP 136/76; PULSE 61; O2SAT 96; BMI 40.9
--- NOTE | 2024-02-08 08:06 | MHC.PC.OV ---
Vital Signs 02/08/24 08:06 Height 5 ft 4.5 in Weight 242 lb BMI 40.9 BP 136/76 Blood Pressure Location Lt brachial Position Sitting Pulse 61 Pulse Oximetry (%) 96 Oxygen Delivery Method Room Air Intake Visit Reasons: follow up labs Intake Note: Pt is here today to f/u labs Allergies latex [LATEX] Allergy (Unknown, Verified 02/08/24 08:24) RASH Penicillins [PENICILLINS] Allergy (Unknown, Verified 02/08/24 08:24) DIFFICULTY BREATHING - YRS AGO tape Allergy (Unknown, Uncoded 02/08/24 08:24) redness and itching Medication List - Last Reconciled 02/08/24 by Karla Vee MD calcium carbonate 1,000 mg (2 x 500 mg calcium (1,250 mg)) PO TID 30 days cetirizine mg PO DAILY cholecalciferol (vitamin D3) 3,000 units PO DAILY docusate sodium (Colace) 100 mg PO DAILY multivitamin 1 tab PO DAILY mupirocin 2% 1 appl topical BID-TID PRN omeprazole 40 mg PO DAILY PRN Synthroid (levothyroxine) 150 mcg PO DAILY 90 days NS vitamin A palmitate 10,000 units PO DAILY Tobacco use date assessed: 02/08/24 Fall risk assessment: No Falls in past year Last assessed Fall Risk: 02/08/24 Dental Screening Dental Screen Date: 07/21/23 Did you have a dental visit in the last 12 months?: Yes Did you have a dental problem in the last 6 months where you did not have access to dental care?: Yes Was dental information given to patient?: Patient has dentist HPI follow up labs HPI Details With hypertension hypothyroidism, here today for follow-up. She has been found to have excess parathyroid hormone, has osteopenia currently being followed by Dr. Du. Blood pressure has been stable , currently not on any medication at present time. She had recent fasting labs done which showed normal CBC , electrolytes, renal function, fasting glucose, lipids, and a thyroid levels. Complains of recurrent bilateral knee pain left more than the right, takes an occasional Tylenol which affords only temporary relief, worse with doing yd work, which involves a lot of kneeling and walking. Has been having recurrent episodes urinary leakage especially when she coughs and sneezes. Has itchy ears with occasional crusting on her earlobe. She is due this year now for her screening mammogram, tubular adenoma removed on last screening done in 2019 . [facility] Medical History (Updated 02/08/24 @ 08:55 by Karla Vee MD) Mixed stress and urge incontinence Itching of ear History of adenomatous polyp of colon Bilateral chronic knee pain History of folliculitis Osteopenia of left femoral neck Closed fracture of radial styloid Lumbago with sciatica Varicose veins of bilateral lower extremities with pain Menopause Furunculosis of multiple sites Tubular adenoma of colon Obesity H/O non anemic vitamin B12 deficiency Erythema intertrigo GERD (gastroesophageal reflux disease) Hypertension Hypothyroidism Surgical History History of colonoscopy History of Bradley-en-Y gastric bypass Hx laparoscopic cholecystectomy Family History Father No problems noted. Mother No problems noted. Sister Breast cancer Social History Housing: House Alcohol intake: current Alcohol intake frequency: holidays/special occasions only Alcohol type: wine Patient Tobacco Use Status: Former Tobacco user Cigarette Packs Per Day: 1 Cigarettes Per Day: 20 Years Smoked: 10 e-Cigarette/Vaping Use: Never Used Current occupational status: retired Cognitive needs: No Hearing needs: No Vision needs: Yes Questionnaire PHQ-9 Over the last 2 weeks, how often have you been bothered by any of the following problems? 1. Little interest or pleasure in doing things: not at all 2. Feeling down, depressed, or hopeless: not at all 3. Trouble falling or staying asleep, or sleeping too much: not at all 4. Feeling tired or having little energy: not at all 5. Poor appetite or overeating: not at all 6. Feeling bad about yourself - or that you are a failure or have let yourself or your family down: not at all 7. Trouble concentrating on things, such as reading the newspaper or watching television: not at all 8. Moving or speaking so slowly that other people could have noticed. Or the opposite - being so fidgety or restless that you have been moving around a lot more than usual: not at all 9. Thoughts that you would be better off or of hurting yourself in some way: not at all Total score: 0 Depression Screening Interpretation: Negative Depression Screening Done: Yes 72241 - PHQ-9 Billing: Yes Source: Developed by Drs. Mandeep Martinez, Jeny Almodovar, Braulio Hardy and colleagues, with an educational toby from [employer]. Thrive Questionnaire Date Thrive assessed: 02/08/24 I am a: Patient What is your living situation today?: I have a steady place to live Within the past 12 months, did the food you bought not last and you didn't have the money to get more?: Never true Within the past 12 months, did you worry whether your food would run out before you got money to buy more?: Never true Do you have trouble paying for medicines?: No Do you have trouble getting transportation to medical appointments?: No Do you have trouble paying your heating and electricity bill?: No Do you have trouble taking care of your child, family member or friend?: No Do you have trouble with day-to-day activities such as bathing, preparing meals, shopping, managing finances, etc.?: No Are you currently unemployed and looking for a job?: No Are you interested in more education?: No THRIVE Score: 0 AUDIT C Alcohol Use Questionnaire (AUDIT-C) 1. How often do you have a drink containing alcohol?: Monthly or less 2. How many drinks containing alcohol do you have on a typical day when you are drinking?: 1 or 2 3. How often do you have six or more drinks on one occasion?: Never Total Score: 1 JORGE-7 AMB Questionnaire JORGE-7 Date JORGE - 7 assessed: 02/08/24 Feeling nervous, anxious, or on edge: 0 = Not at all Not being able to stop or control worryin = Not at all Worrying too much about different things: 0 = Not at all Trouble relaxin = Not at all Being so restless that it is hard to sit still: 0 = Not at all Becoming easily annoyed or irritable: 0 = Not at all Feeling afraid as if something awful might happen: 0 = Not at all Total JORGE-7 score (0-4 normal; 5-9 mild; 10-14 moderate; 15-21 severe): 0 Source: Developed by Drs. Mandeep Martinez, Jeny Almodovar, Braulio Hardy and colleagues, with an educational toby from [employer]. JORGE-7 Assessment Billing JORGE-7 Assessment Tool: JORGE-7 Assessment 44352 Review of Systems Const Denies fatigue, Denies fever(s), Denies headache(s) and Denies weakness Eyes Denies change in vision ENT Reports as per HPI, Denies dizziness, Denies headache(s) and Denies nasal congestion Card Denies chest pain, Denies lightheadedness, Denies palpitations and Denies dyspnea Resp Denies chest congestion, Denies cough, Denies dyspnea and Denies wheezing GI Denies abdominal pain, Denies change in bowel habits and Denies heartburn Denies urinary frequency, Denies dysuria and Denies urinary urgency Musc Reports as per HPI, Denies back pain, Denies myalgias, Denies joint swelling and Denies muscle weakness Skin/Breast Reports as per HPI Neuro Denies dizziness, Denies headache(s) and Denies weakness Psych Reports no additional complaints Endo Denies fatigue, Denies polydipsia, Denies polyuria and Denies palpitations Omid/Lymph Denies easy bruising Aller/Immun Denies seasonal rhinorrhea and Denies wheezing Physical exam (Primary Care) Vital Signs: Last Vital Signs Pulse 61 02/08/24 08:06 BP 136/76 02/08/24 08:06 Pulse Ox 96 02/08/24 08:06 Oxygen Delivery Method Room Air 02/08/24 08:06 BMI result Body Mass Index 40.9 Tobacco/Smoking Status: Tobacco use Status Tobacco use date assessed 02/08/24 02/08/24 08:08 Patient Tobacco Use Status Former Tobacco user 02/08/24 08:08 e-Cigarette/Vaping Use Never Used 02/08/24 08:08 PHQ-9: PHQ-9 Score PHQ-9: Total score 0 02/08/24 08:57 Depression Screening Interpretation: Negative Thrive Assessment: Date of Thrive Assessment Date Thrive assessed 02/08/24 02/08/24 08:15 Const General: cooperative, comfortable and no acute distress Orientation/consciousness: patient oriented x3 HENMT Head: Yes normocephalic General nose exam: Normal external nose present Face and sinus: Yes face symmetric Mouth: Normal oral and palatal mucosa present, oropharynx normal and moist mucous membranes Eyes General: appearance normal, both eyes and all related structures Neck Neck: Yes full ROM, Yes no lymphadenopathy and Yes supple Resp Effort & Inspection: normal respiratory effort, no cough and no stridor Cardio Rhythm: regular rhythm GI Inspection: Yes Abdominal panniculus present and Yes obesity Palpation (GI): Soft to palpation, nontender, no guarding and no masses Skin General skin exam: no rashes or lesions noted and dry skin Neuro General: patient oriented x3, gait normal, moves all extremities, Normal light touch and pain sensation, no focal motor deficits and CN's II-XI intact bilaterally Cognition (Neuro): normal cognition Gait exam (Neuro): Normal gait present Extrem Other: Crepitus in both knee General: Yes full ROM, Yes no joint enlargement, Yes no pedal edema, Yes no calf tenderness and Yes normal gait Psych Appearance: grossly normal and well kempt Mental Status: mental status grossly normal Speech and movement: Mute speech present Affect: normal affect Thought process: Normal thought process present Results Reviewed Results Reviewed: Name: Loraine Villarreal Age/Sex: 73/F : 1950 Unit#: [id number] Attend Dr: Stacey Kingsley Re01/08/24 Status: DEP REF Location: [facility] Disch: SPEC : [id number] STEVIE: 01/08/24 STATUS: COMP REQ : [id number] RECD: 01/08/24-[address]: Stacey Kingsley COMP: 01/08/24-4 ENTERED: 01/08/24-842 [facility] DR: Karla Vee MD ORDERED: CMP, IRON PROF, Ferritin, C Reactive Prot, Lipid Panel, TSH Rflx, Insuli Test Result Flag Reference Sodium 140 135-145 mmol/L Potassium 4.6 3.3-5.1 mmol/L CL 103 96-108 mmol/L CO2 29 22-29 mmol/L Gap 13 12-20 BUN 15 9-16 mg/dL Creat 0.73 0.5-1.4 mg/dL EGFR > 60 NOTE: For -Vietnamese individuals, multiply the result by 1.210. Chronic Kidney Disease: Estimated GFR < 60 mL/min/1.73m2 Severe Kidney Disease: Estimated GFR < 15 mL/min/1.73m2 Glucose, Random 95 60-115 mg/dL CA 9.4 8.4-10.2 mg/dL Iron 91 30-160 mcg/dL TIBC 316 228-428 mcg/dL Saturation 29 15-50 % UIBC 225 ug/dL Ferritin 105 10-250 ng/mL Total Bili 0.7 0.0-1.0 mg/dL AST (GOT) 27 5-31 U/L ALT (GPT) 27 0-31 U/L CRP 0.19 < or = 0.50 mg/dL Protein, Total 7.2 6.5-8.0 g/dL Alb 3.9 3.5-5.0 g/dL Triglyceride 126 <150 mg/dL Desirable Triglyceride: less than 150 mg/dL Borderline High Triglyceride 150-199 mg/dL High Triglyceride: 200-499 mg/dL Very High Triglyceride: greater than or equal to 5OO mg/dL Cholesterol 174 <200 mg/dL Desirable Cholesterol: less than 200 mg/dL Borderline High Cholesterol: 200-239 mg/dL High Cholesterol: greater than 239 mg/dL LDL Calculated 90 <100 mg/dL Desirable LDL: less than 100 mg/dL Near Optimal/Above Optimal LDL: 110-129 mg/dL Borderline High LDL: 130-159 mg/dL High LDL: 160-189 mg/dL Very High LDL: greater than or equal to 190 mg/dL HDL 59 >40 mg/dL Desirable HDL: greater than 40 mg/dL Note: This HDL assay may give artificially low results in patients with liver disease. Alk Phos 118 H 39-117 U/L TSH 1.34 0.32-4.0 uIU/mL Insulin, total 13 2-29 uU/mL This test was performed using the Quevedo chemiluminescent method. Name: Loraine Villarreal Age/Sex: 73/F : 1950 Unit#: [id number] Attend Dr: Stacey Kingsley Re01/08/24 Status: DEP [facility] Disch: SPEC : [id number] STEVIE: 01/08/2445 STATUS: COMP REQ : [id number] RECD: 01/08/24-[address]: Stacey Kingsley COMP: 01/08/24 ENTERED: 01/08/24 [facility] [address]: Karla Vee MD ORDERED: CBC Auto Diff Test Result Flag Reference WBC 4.2 L 4.8-10.8 X10*3/uL RBC 5.03 4.20-5.50 X10*6/uL HGB 15.3 12.0-16.0 g/dl HCT 46.9 37.0-47.0 % MCV 93.2 80.0-98.0 fL MCH 30.4 27.0-33.0 pg MCHC 32.6 31.0-35.0 g/dl RDW 13.2 11.0-16.0 % PLT 184 160-400 X10*3/uL MPV 12.0 9.4-12.3 fL Neut Pct Auto 48.9 45-73 % ImGran Pct Auto 0.2 0.0-0.4 % Lymp Pct Auto 38.9 20-40 % [place] Pct Auto 8.9 2-11 % Eos Pct Auto 2.4 0-4 % Baso Pct Auto 0.7 0-2 % NRBC Pct Auto 0.0 0.0-0.2 /100WBC ANC Neut Abs # 2.0 2.0-8.3 x10*3/uL ImGran Abs Auto 0.01 0.00-0.03 X10*3/uL Lymph Abs Auto 1.6 1.2-4.9 X10*3/uL [place] Abs Auto 0.4 0.1-1.2 X10*3/uL Eos Abs Auto 0.1 0.0-0.4 X10*3/uL Baso Abs Auto 0.0 0.0-0.2 X10*3/uL NRBC Abs Auto 0.000 0.0-0.012 X10*3/uL a Assessment and Plan Assessment & Plan (1) Bilateral chronic knee pain: Code(s): M25.561 - Pain in right knee; M25.562 - Pain in left knee; G89.29 - Other chronic pain Plan: X-ray of both knees ordered, continue taking Tylenol arthritis 650 mg 1 tablet every 8 hours as needed and may try massaging absorbine princess to affected joint (2) History of adenomatous polyp of colon: Code(s): Z86.010 - Personal history of colonic polyps Plan: Referral to Dr. Sr ordered for repeat colonoscopy (3) Itching of ear: Code(s): L29.9 - Pruritus, unspecified Plan: Advised to try applying cortisone mixed in with a moisturizer to affected ear low once a day for next 10 days as needed for ear itching (4) Osteopenia of left femoral neck: Code(s): M85.852 - Other specified disorders of bone density and structure, left thigh Plan: Patient followed by Dr. Du, continue with vitamin-D and calcium supplements, (5) Parathyroid hormone excess: Code(s): E21.3 - Hyperparathyroidism, unspecified Plan: Followed by Dr. Du, (6) Hypertension: Code(s): I10 - Essential (primary) hypertension Qualifiers: Hypertension type: primary hypertension Qualified Code(s): I10 - Essential (primary) hypertension Plan: Blood pressure goal is less than 130/80. Reinforced importance of following a low sodium diet, getting regular exercise, and lowering stress levels. (7) Hypothyroidism: Code(s): E03.9 - Hypothyroidism, unspecified Qualifiers: Hypothyroidism type: acquired Qualified Code(s): E03.9 - Hypothyroidism, unspecified Plan: Currently on Synthroid, latest thyroid levels are within normal (8) Mixed stress and urge incontinence: Code(s): N39.46 - Mixed incontinence Plan: Will start on mirabegron ER 25 mg per tablet taken once a day in a.m., Orders: Orders XR knee RT 4V 02/08/24 G89.29 - Other chronic pain, M25.561 - Pain in right knee, M25.562 - Pain in left knee XR knee LT 4V 02/08/24 G89.29 - Other chronic pain, M25.561 - Pain in right knee, M25.562 - Pain in left knee Referrals Gastroenterology Referral Z86.010 - Personal history of colonic polyps Medications: New mirabegron ER (Myrbetriq) 25 mg PO DAILY 30 tabs 0RF Coding Level of Care Code Est Pt Level 4 (08865) Complex EM visit Add On G2211 Diagnoses Bilateral chronic knee pain M25.561; M25.562; G89.29 History of adenomatous polyp of colon Z86.010 Itching of ear L29.9 Osteopenia of left femoral neck M85.852 Parathyroid hormone excess E21.3 Primary hypertension I10 Hypertension type: primary hypertension Acquired hypothyroidism E03.9 Hypothyroidism type: acquired Mixed stress and urge incontinence N39.46 Additional Codes JORGE-7 Assessment Billing - JORGE-7 Assessment Tool: JORGE-7 Assessment 46112 ([id number])
== END 2024-02-08 08:58 | disposition home or self-care (01) ==
PROVIDERS: PCP Internal Medicine; Visit Provider Internal Medicine
DX: M25.561 Pain in right knee (principal); E21.3 Hyperparathyroidism, unspecified; M25.562 Pain in left knee; G89.29 Other chronic pain; Z86.010 Personal history of colon polyps; L29.9 Pruritus, unspecified; M85.852 Other specified disorders of bone density and structure, left thigh; I10 Essential (primary) hypertension; E03.9 Hypothyroidism, unspecified; N39.46 Mixed incontinence
CPT/HCPCS: 99214; G2211

== ENCOUNTER 2024-02-08 08:59 | Outpatient (REF) | payer MEDICARE, OTHER, SELFPAY ==
--- NOTE | ~2024-02-08 | XR_ITS ---
EXAMINATION: BILATERAL KNEES CLINICAL INFORMATION: Bilateral knee pain COMPARISON: None available. TECHNIQUE: 4 views each knee FINDINGS Similar symmetric changes are seen in both knees with severe tricompartmental degenerative changes with most marked narrowing in the medial and patellofemoral compartments. Marked osteophyte formation and sclerosis is seen. No large joint effusions are present. On the left, there may be a small amount of calcification seen in the lateral meniscus with bouts chondrocalcinosis seen on the right. No fractures or dislocations. XR/XR knee LT 4V IMPRESSION: Severe tricompartmental degenerative changes in both knees.
--- NOTE | ~2024-02-08 | XR_ITS ---
EXAMINATION: BILATERAL KNEES CLINICAL INFORMATION: Bilateral knee pain COMPARISON: None available. TECHNIQUE: 4 views each knee FINDINGS Similar symmetric changes are seen in both knees with severe tricompartmental degenerative changes with most marked narrowing in the medial and patellofemoral compartments. Marked osteophyte formation and sclerosis is seen. No large joint effusions are present. On the left, there may be a small amount of calcification seen in the lateral meniscus with bouts chondrocalcinosis seen on the right. No fractures or dislocations. XR/XR knee RT 4V IMPRESSION: Severe tricompartmental degenerative changes in both knees.
== END 2024-02-08 09:00 | disposition home or self-care (01) ==
LOC: HO.HMGCX 08:59
PROVIDERS: PCP Internal Medicine; Visit Provider Internal Medicine
DX: M25.561 Pain in right knee (principal); M25.562 Pain in left knee; G89.29 Other chronic pain
CPT/HCPCS: 73564

== ENCOUNTER 2024-07-20 09:12 | Outpatient (REF) | payer MEDICARE, OTHER, SELFPAY ==
[2024-07-20 10:32] LABS: Albumin Level 3.9 g/dL (3.5-5.0); Calcium 9.7 mg/dL (8.4-10.2)
[2024-07-20 10:53] LABS: Vitamin D 25-OH Total 68.8 ng/mL (>30)
[2024-07-22 15:12] LABS: Calcium, Ionized 5.3 mg/dL (4.7-5.5)
== END 2024-07-20 09:13 | disposition home or self-care (01) ==
LOC: HO.HMGCLDS 09:12
PROVIDERS: PCP Internal Medicine; Visit Provider Internal Medicine Endocrinology, Diabetes & Metabolism
DX: E21.3 Hyperparathyroidism, unspecified (principal)
CPT/HCPCS: 36415; 82040; 82306; 82310; 82330; 83970

== ENCOUNTER 2024-08-01 07:50 | Outpatient (AMB) | payer MEDICARE, OTHER, SELFPAY ==
[2024-08-01 08:06] VITALS: BP 154/78; PULSE 62; BMI 41.1
--- NOTE | 2024-08-01 08:06 | MHC.OFFVIS ---
Vital Signs 08/01/24 08:06 Height 5 ft 4.5 in Weight 242 lb 15.19 oz BMI 41.1 BP 154/78 H Blood Pressure Location Lt brachial Position Sitting Pulse 62 Pulse Source Pulse Oximeter Intake Visit Reasons: f/u secondary hyperparathyroidism Intake Note: Patient presents today for Secondary Hyperparathyroidism follow up visit. Coordinator Of Genetic Services Required: No Accompanied by: Self / Same As Patient Allergies latex [LATEX] Allergy (Unknown, Verified 08/01/24 08:10) RASH Penicillins [PENICILLINS] Allergy (Unknown, Verified 08/01/24 08:10) DIFFICULTY BREATHING - YRS AGO tape Allergy (Unknown, Uncoded 08/01/24 08:10) redness and itching Medication List - Last Reconciled 08/01/24 by Mandeep Du MD calcium carbonate 1,000 mg (2 x 500 mg calcium (1,250 mg)) PO TID 30 days cetirizine mg PO DAILY cholecalciferol (vitamin D3) 3,000 units PO DAILY docusate sodium (Colace) 100 mg PO DAILY mirabegron ER (Myrbetriq) 25 mg PO DAILY multivitamin 1 tab PO DAILY mupirocin 2% 1 appl topical BID-TID PRN omeprazole 40 mg PO DAILY PRN Synthroid (levothyroxine) 150 mcg PO DAILY 90 days NS vitamin A palmitate 10,000 units PO DAILY HPI Comments Details: 74 YO F with PMHx bariatric surgery who is seen in consultation at the request of PCP for Increased PTH First noted to haveincreased PTH in just foind out . Currently using Calcium supplement since 500 mg TID since bariatric surgery . Takes 1500 IU of Vitamin D daily. Not Currently using HCTZ. off for yrs Kidney stones: No Osteoporosis:No osteopenia in 2019 History of [place] use: No Biotin use: No Family history of high calcium or kidney stones: No Renal imaging: [] DXA: Labs: Recently had a left wrist fracture after a hard fall Workup revealed borderline low vitamin-D level with elevated PTH. PTH remains elevated with normal vitamin-D and low 24 hour urine for calcium suggesting malabsorption of calcium. Calcium intake was increased and 24 hour urine is now within normal limits. PTH remains persistently elevated. Repeat T PTH at [facility] reference [facility] ([facility]) in 01/2024 was normal [facility] Medical History (Updated 02/08/24 @ 08:55 by Karla Vee MD) Mixed stress and urge incontinence Itching of ear History of adenomatous polyp of colon Bilateral chronic knee pain History of folliculitis Osteopenia of left femoral neck Closed fracture of radial styloid Lumbago with sciatica Varicose veins of bilateral lower extremities with pain Menopause Furunculosis of multiple sites Tubular adenoma of colon Obesity H/O non anemic vitamin B12 deficiency Erythema intertrigo GERD (gastroesophageal reflux disease) Hypertension Hypothyroidism Surgical History History of colonoscopy History of Bradley-en-Y gastric bypass Hx laparoscopic cholecystectomy Family History Father No problems noted. Mother No problems noted. Sister Breast cancer Social History Housing: House Alcohol intake: current Alcohol intake frequency: holidays/special occasions only Alcohol type: wine Patient Tobacco Use Status: Former Tobacco user Cigarette Packs Per Day: 1 Cigarettes Per Day: 20 Years Smoked: 10 e-Cigarette/Vaping Use: Never Used Current occupational status: retired Cognitive needs: No Hearing needs: No Vision needs: Yes Assessment & Plan Assessment & Plan (1) Parathyroid hormone excess: Code(s): E21.3 - Hyperparathyroidism, unspecified Category: Medical Plan: This is a 73-year-old white female with history of gastric bypass surgery found to have elevated PTH. 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 Calcium is low normal. Less likely is the presence of normocalcemia primary hyperparathyroidism. PTH appears to be improving with increase calcium but not normal . 24 hour urine for calcium is now within normal limits . Repeat PTH at [facility] ([facility] ) was normal indicating issue with measurement of PTH at [place] lab At this point, there is no further need for any endocrine workup or follow-up for increase PTH levels. The increase PTH may be reflection of lab error. Patient should continue the current calcium and vitamin-D supplementation returned to the care of her primary care provider . If increase PTH is clinically indicated, it should be performed at a lab other than [place] Orders: Orders Calcium Today E21.3 - Hyperparathyroidism, unspecified Albumin Level Today E21.3 - Hyperparathyroidism, unspecified Parathyroid Hormone Intact Today E21.3 - Hyperparathyroidism, unspecified Coding Level of Care Code Est Pt Level 3 (63653) Diagnoses Parathyroid hormone excess E21.3
== END 2024-08-01 08:17 | disposition home or self-care (01) ==
PROVIDERS: PCP Internal Medicine; Visit Provider Internal Medicine Endocrinology, Diabetes & Metabolism
DX: E21.3 Hyperparathyroidism, unspecified (principal)
CPT/HCPCS: 99213

== ENCOUNTER → 2024-08-01 07:50 | Outpatient (BNVA) | payer MEDICARE, OTHER, SELFPAY | PROVIDERS: PCP Internal Medicine; Visit Provider Internal Medicine Endocrinology, Diabetes & Metabolism | DX: E21.3 Hyperparathyroidism, unspecified (principal) | CPT/HCPCS: 99212 ==

== ENCOUNTER 2024-08-02 10:51 | Outpatient (AMB) | payer MEDICARE, OTHER, SELFPAY ==
[2024-08-02 12:17] VITALS: BP 134/72; PULSE 63; O2SAT 95; BMI 40.8
--- NOTE | 2024-08-02 12:17 | A.OFFVIS_ITS ---
Intake Vital Signs 08/02/24 12:17 Height 5 ft 4.5 in Weight 241 lb 6 oz BMI 40.8 BP 134/72 Blood Pressure Location Rt brachial Position Sitting Pulse 63 Pulse Source Pulse Oximeter Pulse Oximetry (%) 95 Oxygen Delivery Method Room Air Intake Visit Reasons: SWV G0439 Intake Note: Pt is here today for SWV Allergies latex [LATEX] Allergy (Unknown, Verified 08/08/24 01:07) RASH Penicillins [PENICILLINS] Allergy (Unknown, Verified 08/08/24 01:07) DIFFICULTY BREATHING - YRS AGO tape Allergy (Unknown, Uncoded 08/08/24 01:07) redness and itching Medication List - Last Reconciled 08/02/24 by Karla Vee MD calcium carbonate 1,000 mg (2 x 500 mg calcium (1,250 mg)) PO TID 30 days cetirizine mg PO DAILY cholecalciferol (vitamin D3) 3,000 units PO DAILY docusate sodium (Colace) 100 mg PO DAILY mirabegron ER (Myrbetriq) 25 mg PO DAILY multivitamin 1 tab PO DAILY mupirocin 2% 1 appl topical BID-TID PRN omeprazole 40 mg PO DAILY PRN Synthroid (levothyroxine) 150 mcg PO DAILY 90 days NS vitamin A palmitate 10,000 units PO DAILY HPI SWV G0439 HPI Details SWV ?74 year old lady with past medical history of Hypertension, Hypothyroidism, Chronic GERD, Obesity with history of gastric bypass surgery, urinary incontinence, osteopenia of left femoral neck, and history of adenomatous colon polyp, here today for her subsequent Annual Wellness Visit. She is up-to-date with her screening mammogram, done 01/09/2024 , and had a bone density done 12/17/2022 which showed presence of osteopenia in left femoral neck. She is up-to-date with her screening colonoscopy done by Dr. Alicia last 07/08/2019 with removal of a tubular adenoma and hyperplastic polyp. She has an appointment already scheduled with Dr. Sr in 10/2024 for repeat screening colonoscopy. She is up-to-date with lipid and diabetes screening, last done 01/08/2024 both of which showed normal findings She is up-to-date with all her vaccinations including RSV vaccine ? Medical / Social History Reviewed? Past Medical History ?Yes . ? [place] of Care / Care Team list updated ?Yes . ? Surgical/Hospitalization History ?Yes . ? Current Medications (including OTC and supplements) ?Yes . ? Family History ?Yes . ? Tobacco Control form ?Yes . ? AUDIT-C (Alcohol use) form ?Yes . ? Illicit drug use in Social History ?Yes . ? Current diagnosis of depression? ?No ? Appropriate PHQ2/PHQ9 completed ?Yes . ? Data entered by ?Surgical Device Sales Representative and reviewed by provider ? Fall Risk ? Fall History? Have you had any falls with injury in the past year? ?No . ? Have you had two or more falls in the past year? ?No . ? Fall Risk Assessment: ?No falls in the past year . ? HRA filled out by the patient, reviewed by Provider and scanned. ?SWV ? Balance? Romberg negative ? Tandem walk ?Yes . ? Walk and Turn ?Yes . ? Rise from sit to stand ?Yes . ?Vision? Corrective lens none ? Vision screen ? Up-to-date, she sees Dr. Whitfield ?Hearing? Whisper test ?pass . ?Written Plan?Completed. See Patient Documents.? HPI Comments History of Present Illness Details She has been having intermittent episodes of urinary urge and stress incontinence, has been taking mirabegron 25 mg daily , which patient states was initially helping but lately has been experiencing more urinary incontinence towards the end of the day. [facility]LY [facility] Medical History Mixed stress and urge incontinence Itching of ear History of adenomatous polyp of colon Bilateral chronic knee pain History of folliculitis Osteopenia of left femoral neck Closed fracture of radial styloid Lumbago with sciatica Varicose veins of bilateral lower extremities with pain Menopause Furunculosis of multiple sites Tubular adenoma of colon Obesity H/O non anemic vitamin B12 deficiency Erythema intertrigo GERD (gastroesophageal reflux disease) Hypertension Hypothyroidism Surgical History History of colonoscopy History of Bradley-en-Y gastric bypass Hx laparoscopic cholecystectomy Family History Father No problems noted. Mother No problems noted. Sister Breast cancer Social History Housing: House Alcohol intake: current Alcohol intake frequency: holidays/special occasions only Alcohol type: wine Patient Tobacco Use Status: Former Tobacco user Cigarette Packs Per Day: 1 Cigarettes Per Day: 20 Years Smoked: 10 e-Cigarette/Vaping Use: Never Used Current occupational status: retired Cognitive needs: No Hearing needs: No Vision needs: Yes Questionnaire Medicare Wellness Checkup [age] What gender do you identify with?: female During the past 4 weeks, how much have you been bothered by emotional problems such as feeling anxious, depressed, irritable, sad or downhearted, and blue?: not at all During the past 4 weeks, has your physical & emotional health limited your social activities with family, friends, neighbors, or groups?: not at all During the past 4 weeks, how much bodily pain have you generally had?: moderate pain During the past 4 weeks, was someone available to help you if you needed & wanted help?: yes, as much as I wanted During the past 4 weeks, what was the hardest physical activity you could do for at least 2 minutes?: heavy Can you get to places out of walking distance without help? (For eg., can you travel alone on buses, taxis or drive your car?): Yes Can you go shopping for groceries or clothes without someone's help?: Yes Can you prepare your own meals?: Yes Can you do your housework without help?: Yes Because of any health problems, do you need the help of another person with your personal care needs such as eating, bathing, dressing or getting around the house?: No Can you handle your own money without help?: Yes During the past 4 weeks, how would you rate your health in general?: very good During the past 4 weeks how have things been going for you?: very well; could hardly better Are you having difficulties driving your car?: no Do you always fasten your seat belt when you are in a car?: yes, usually During past 4 weeks, have you been bothered by the following: never: Falling or dizzy when standing up, Sexual problems?, Trouble eating well?, Teeth or denture problems? and Problems using the telephone? and seldom: Tiredness or fatigue? Have you fallen 2 or more times in the past year?: No Are you afraid of falling?: No Are you a smoker?: no During the past 4 weeks, how many drinks of wine, beer, or other alcoholic beverages did you have?: 1 drink or less per week Do you exercise for about 20 minutes 3 or more times a week?: no, I usually do not exercise this much Have you been given information to help with the following?: no: Hazards in your house that might hurt you? and no: Keeping track of your medications? How often do you have trouble taking medicines the way you have been told to take them?: I always take medicine as prescribed How confident are you that you can control & manage most of your health problems?: very confident What is your race?: White Mini Mental State Exam (MMSE) Orientation What is the (year) (season) (date) (day) (month)?: year (2023), season (fall), date (08/02/2024), day (Thursday) and month (July) Where are we (state) (county) (town or city) (hospital) (floor)?: state ([place]), county ([place]), town or city ([place]) and hospital/clinic ([facility] [place]) Score Score: 9 Activity of Daily Living Bathing - sponge bath, tub bath or shower: receives no assistance (gets in/out by self, if usual bathing means Dressing - getting clothes from closets & drawers, including inner/outer garments & fasteners.: gets clothes & gets completely dressed without help Toileting - going to the 'toilet room' for urine/bowel elimination & cleaning self/arranging clothes: goes to toilet room, cleans self, arranges clothes without help Transfer: moves in & out of bed and chair without help (may use support object) Continence: controls urination/bowel movements completely by self Feeding: feeds self without help Total Score: 0 Information obtained from: patient Using telephone: independent Traveling: independent Shopping: independent Preparing meals: independent Housework: independent Taking medicine: independent Managing money: independent PHQ-9 Over the last 2 weeks, how often have you been bothered by any of the following problems? 1. Little interest or pleasure in doing things: not at all 2. Feeling down, depressed, or hopeless: not at all 3. Trouble falling or staying asleep, or sleeping too much: not at all 4. Feeling tired or having little energy: not at all 5. Poor appetite or overeating: not at all 6. Feeling bad about yourself - or that you are a failure or have let yourself or your family down: not at all 7. Trouble concentrating on things, such as reading the newspaper or watching television: not at all 8. Moving or speaking so slowly that other people could have noticed. Or the opposite - being so fidgety or restless that you have been moving around a lot more than usual: not at all 9. Thoughts that you would be better off or of hurting yourself in some way: not at all Total score: 0 Depression Screening Interpretation: Negative Depression Screening Done: Yes 13237 - PHQ-9 Billing: Yes Source: Developed by Drs. Mandeep Martinez, Jeny Almodovar, Braulio Hardy and colleagues, with an educational toby from [employer]. Review of Systems Const All systems reviewed & are unremarkable except as noted in HPI and below Physical Exam Vital Signs: Last Vital Signs Pulse 63 08/02/24 12:17 BP 134/72 08/02/24 12:17 Pulse Ox 95 08/02/24 12:17 Oxygen Delivery Method Room Air 08/02/24 12:17 BMI result Body Mass Index 40.8 GI Palpation (GI): Soft to palpation, nontender, no guarding and no masses General: Yes no CVA tenderness Back/Spine/Pelvis Back: no CVA tenderness Assessment & Plan Assessment & Plan (1) Encounter for subsequent annual wellness visit (AWV) in Medicare patient: Code(s): Z00.00 - Encounter for general adult medical examination without abnormal findings Plan: Medical wellness checklist reviewed, discussed with patient and updated., copy given (2) Mixed stress and urge incontinence: Code(s): N39.46 - Mixed incontinence Plan: Increase mirabegron dose to 50 mg once a day (3) History of adenomatous polyp of colon: Code(s): Z86.010 - Personal history of colon polyps Plan: Currently followed by Dr. Sr, who has scheduled her for a screening colonoscopy again (4) Osteopenia of left femoral neck: Code(s): M85.852 - Other specified disorders of bone density and structure, left thigh Plan: Continue with vitamin-D 3 supplement and encouraged to do regular weight-bearing exercise, take adequate calcium from dietary sources (5) Parathyroid hormone excess: Code(s): E21.3 - Hyperparathyroidism, unspecified Plan: Has been seen and evaluated by Dr. Du, who states that the increase PTH may be reflection of lab error. Patient should continue the current calcium and vitamin-D supplementation (6) Morbid obesity: Code(s): E66.01 - Morbid (severe) obesity due to excess calories Plan: Recommended focusing on improving your health instead of dieting. : Eat Mediterranean diet, limit foods high in fat, sugar, and calories, eat slowly, pay attention to portion sizes, plan your meals ahead of time, start regular physical activity 150 minutes of moderate intensity exercise or 90 minutes/week of vigorous exercise and increase water intake. (7) GERD (gastroesophageal reflux disease): Code(s): K21.9 - Gastro-esophageal reflux disease without esophagitis Qualifiers: Esophagitis presence: esophagitis presence not specified Qualified Code(s): K21.9 - Gastro-esophageal reflux disease without esophagitis Plan: Currently on omeprazole 40 mg daily (8) Hypothyroidism: Code(s): E03.9 - Hypothyroidism, unspecified Qualifiers: Hypothyroidism type: acquired Qualified Code(s): E03.9 - Hypothyroidism, unspecified Plan: Continue Synthroid 150 mcg daily (9) Advanced directives, counseling/discussion: Code(s): Z71.89 - Other specified counseling Plan: Initiated the conversation about Advanced Directives. Advanced Directives help patients prepare for current and future decisions about their medical treatment and place of care. Discussed with patient that it is a process where a patients current condition and prognosis are reviewed, their wishes for information regarding their illness are elicited, and likely medical dilemmas are presented and options discussed. Healthcare proxy form completed today. The form can be amended as needed, reviewed yearly and make changes as needed Medications: Changed From mirabegron ER 25 mg PO DAILY 90 tabs 1RF To mirabegron ER 50 mg PO DAILY 90 tabs 1RF Refilled Synthroid (levothyroxine) EMIGDIO 150 mcg PO DAILY 90 days 90 tabs 1RF NS E03.9 - Hypothyroidism, unspecified omeprazole 40 mg PO DAILY PRN 90 caps 1RF heartburn K21.9 - Gastro-esophageal reflux disease without esophagitis Quality Reporting (2019) Depression/Bipolar (159/160/161/177) PHQ-9: Total score: 0 Coding Level of Care Code Medicare Subsequent (G0439) Est Pt Level 3 (70949) Diagnoses Encounter for subsequent annual wellness visit (AWV) in Medicare patient Z00.00 Mixed stress and urge incontinence N39.46 History of adenomatous polyp of colon Z86.010 Osteopenia of left femoral neck M85.852 Parathyroid hormone excess E21.3 Morbid obesity E66.01 Gastroesophageal reflux disease, unspecified whether esophagitis present K21.9 Esophagitis presence: esophagitis presence not specified Acquired hypothyroidism E03.9 Hypothyroidism type: acquired Advanced directives, counseling/discussion Z71.89 CPT Codes Advance Care Planning - Time spent: 16-45 minutes ([id number]) Additional Codes PHQ-9 - 47335 - PHQ-9 Billing: Yes ([id number]) Advance Care Planning Advance Care Planning discussion: Completed/Scanned Date of discussion: 08/02/24 Who was present: Patient Forms completed: Health Care Proxy Time spent: 16-45 minutes Actual minutes spent: 3
== END 2024-08-02 12:56 | disposition home or self-care (01) ==
PROVIDERS: PCP Internal Medicine; Visit Provider Internal Medicine
DX: Z00.00 Encounter for general adult medical examination without abnormal findings (principal); E21.3 Hyperparathyroidism, unspecified; E66.01 Morbid (severe) obesity due to excess calories; Z68.41 Body mass index [BMI] 40.0-44.9, adult; N39.46 Mixed incontinence; Z86.0100 Personal history of colon polyps, unspecified; M85.852 Other specified disorders of bone density and structure, left thigh; K21.9 Gastro-esophageal reflux disease without esophagitis; E03.9 Hypothyroidism, unspecified; Z71.89 Other specified counseling

== ENCOUNTER → 2024-08-02 10:51 | Outpatient (BNVA) | payer MEDICARE, OTHER, SELFPAY | PROVIDERS: PCP Internal Medicine; Visit Provider Internal Medicine | DX: Z00.00 Encounter for general adult medical examination without abnormal findings (principal); N39.46 Mixed incontinence; M85.852 Other specified disorders of bone density and structure, left thigh; E21.3 Hyperparathyroidism, unspecified; E66.01 Morbid (severe) obesity due to excess calories; Z68.41 Body mass index [BMI] 40.0-44.9, adult; K21.9 Gastro-esophageal reflux disease without esophagitis; E03.9 Hypothyroidism, unspecified; Z71.89 Other specified counseling; Z71.3 Dietary counseling and surveillance | CPT/HCPCS: 96127; 99212 ==

== ENCOUNTER 2024-08-04 10:20 | Outpatient (AMB) | payer MEDICARE, OTHER, SELFPAY ==
--- NOTE | 2024-08-04 10:28 | MHC.OFFVIS ---
Vital Signs 08/04/24 10:30 Height 5 ft 4.5 in Weight 241 lb BMI 40.7 Intake Visit Reasons: Est pt, hx of R Venaseal, Right LE swelling Intake Note: PRN follow up Right LE swelling that started yesterday, very severe, twice the sie of her other leg. Hx of Right LE Venaseal 05/10/21. 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 She had undergone right great saphenous vein ablation with us back in April of 2021. She came in complaining of right leg swelling. She stated that it started 24 hours ago and acute swelling of that right leg. It has been a source of discomfort for her. She is quite concerned about it. [facility] Medical History Mixed stress and urge incontinence Itching of ear History of adenomatous polyp of colon Bilateral chronic knee pain History of folliculitis Osteopenia of left femoral neck Closed fracture of radial styloid Lumbago with sciatica Varicose veins of bilateral lower extremities with pain Menopause Furunculosis of multiple sites Tubular adenoma of colon Obesity H/O non anemic vitamin B12 deficiency Erythema intertrigo GERD (gastroesophageal reflux disease) Hypertension Hypothyroidism Surgical History History of colonoscopy History of Bradley-en-Y gastric bypass Hx laparoscopic cholecystectomy Family History Father No problems noted. Mother No problems noted. Sister Breast cancer Social History Housing: House Alcohol intake: current Alcohol intake frequency: holidays/special occasions only Alcohol type: wine Patient Tobacco Use Status: Former Tobacco user Cigarette Packs Per Day: 1 Cigarettes Per Day: 20 Years Smoked: 10 e-Cigarette/Vaping Use: Never Used Current occupational status: retired Cognitive needs: No Hearing needs: No Vision needs: Yes Review of Systems Const Reports as per HPI ENT Reports no additional complaints Card Denies chest pain, Denies chest pain at rest and Denies chest pain with activity Resp Denies chest congestion and Denies cough GI Reports no additional complaints Musc Details: pain over varicosities, aching of lower extremities, swelling, cramping, heaviness and tiredness, itching Denies abnormal gait Skin/Breast Reports pruritus and Denies wounds Neuro Reports no additional complaints and Denies abnormal gait Psych Denies no additional complaints Physical Exam Vital Signs: BMI result Body Mass Index 40.7 Const General: cooperative, healthy appearing and comfortable Orientation/consciousness: oriented to person, oriented to place and oriented to time Neck Carotids: no bruits Chest Chest palpation & inspection: normal inspection of the chest and normal palpation of entire chest wall Resp Effort & Inspection: normal respiratory effort and able to speak in complete sentences Cardio Rate: regular rate Heart sounds: S1 normal heart sound present and S2 normal heart sound present Peripheral pulses: Peripheral pulses 2+ throughout GI Inspection: Yes normal to inspection Skin Other: +2 edema, right leg CEAP Classification C4 - skin color changes Ep - Etiology Primary As - superficial veins P - reflux General skin exam: dry skin Neuro General: oriented to person, oriented to place and oriented to time Extrem Right lower extremity: full ROM, normal capillary refill and edema Left lower extremity: full ROM, normal capillary refill and edema Psych Mental Status: mental status grossly normal Assessment & Plan Assessment & Plan (1) Varicose veins of right lower extremity with inflammation: Comment: 05/10/2021 right great saphenous vein Cyanoacralate ablation. Code(s): I83.11 - Varicose veins of right lower extremity with inflammation Category: Medical Plan: In short patient has acute right leg swelling. It is a source of pain for her. I have center over for urgent rule out DVT. Should that prove to be negative she will have a 4 week follow-up with us to reassess the overall source of the leg swelling. We did discuss routine conservative measures including compression, elevation, exercise. Thank you for allowing us to assist in her care. Orders: Orders US venous duplex LE RT Today M79.604 - Pain in right leg Coding Level of Care Code Est Pt Level 4 (02205) Diagnoses Varicose veins of right lower extremity with inflammation I83.11
[2024-08-04 10:30] VITALS: BMI 40.7
== END 2024-08-04 10:59 | disposition home or self-care (01) ==
PROVIDERS: PCP Internal Medicine; Visit Provider Surgery Vascular Surgery
DX: I83.11 Varicose veins of right lower extremity with inflammation (principal)
CPT/HCPCS: 99214

== ENCOUNTER → 2024-08-04 10:20 | Outpatient (BNVA) | payer MEDICARE, OTHER, SELFPAY | PROVIDERS: PCP Internal Medicine; Visit Provider Surgery Vascular Surgery ==

== ENCOUNTER 2024-08-04 10:57 | Outpatient (REF) | payer MEDICARE, OTHER, SELFPAY ==
--- NOTE | ~2024-08-04 | US_ITS ---
EXAMINATION: US TRIPLEX LOWER EXTREMITY, RIGHT CLINICAL INFORMATION: Right lower extremity pain COMPARISON: 05/13/2021 TECHNIQUE: Color-flow triplex imaging with spectral analysis and compression Doppler were performed on the right lower extremity. FINDINGS: Echogenic thrombus with noncompressibility and absent color flow in the right common femoral vein and profunda femoral vein with some nonocclusive thrombus extending into the external iliac vein. The proximal superficial femoral vein is patent. There is a duplicated segment of the superficial femoral vein in the mid and distal thigh with one segment demonstrating occlusive thrombus. Echogenic thrombus is also seen within the popliteal vein. Popliteal vein appears small in size with no significant flow on color Doppler which could represent more chronic occlusion. The calf veins are suboptimally visualized There is no White's cyst. US/US venous duplex LE RT IMPRESSION: Acute DVT involving the right common femoral vein, profunda femoral vein and popliteal vein. There is a duplicated segment of the superficial femoral vein in the mid and distal thigh with one segment demonstrating occlusive thrombus as well. This critical result was discussed with Dr. Aguilar at 1446 on 08/04/2024 and it was ascertained that the content and urgency of the report was understood at the time of direct communication. Electronically signed by: Devan Duff MD 08/04/2024 02:46 PM [facility]
== END 2024-08-04 10:58 | disposition home or self-care (01) ==
LOC: HO.US 10:57
PROVIDERS: PCP Internal Medicine; Visit Provider Surgery Vascular Surgery
DX: M79.604 Pain in right leg (principal); I83.11 Varicose veins of right lower extremity with inflammation
CPT/HCPCS: 93971; 99212

== ENCOUNTER 2024-09-01 11:37 | Outpatient (AMB) | payer MEDICARE, OTHER, SELFPAY ==
--- NOTE | 2024-09-01 11:41 | A.OFFVIS_ITS ---
Vital Signs 09/01/24 11:42 Height 5 ft 4.5 in Weight 241 lb BMI 40.7 Intake Visit Reasons: 4 week Right leg check Intake Note: pt states swelling has reducedin the Right LE s/p Right DVT and US 08/04/24. PCP did refill blood thinner Accompanied by: Self / Same As Patient Allergies latex [LATEX] Allergy (Unknown, Verified 09/01/24 11:43) RASH Penicillins [PENICILLINS] Allergy (Unknown, Verified 09/01/24 11:43) DIFFICULTY BREATHING - YRS AGO tape Allergy (Unknown, Uncoded 09/01/24 11:43) redness and itching HPI HPI 4 week Right leg check: Details: Very pleasant 74-year-old female presents for follow-up regarding DVT. She had actually come into our office due to a prior history of venous disease and had an ablation done by us back in 2020. She had acute onset of right lower extremity swelling which came back positive for DVT. She was started on outpatient Eliquis. She is now for follow-up. She reports that her leg is doing significantly better and swelling has decreased. [facility] Medical History Mixed stress and urge incontinence Itching of ear History of adenomatous polyp of colon Bilateral chronic knee pain History of folliculitis Osteopenia of left femoral neck Closed fracture of radial styloid Lumbago with sciatica Varicose veins of bilateral lower extremities with pain Menopause Furunculosis of multiple sites Tubular adenoma of colon Obesity H/O non anemic vitamin B12 deficiency Erythema intertrigo GERD (gastroesophageal reflux disease) Hypertension Hypothyroidism Surgical History History of colonoscopy History of Bradley-en-Y gastric bypass Hx laparoscopic cholecystectomy Family History Father No problems noted. Mother No problems noted. Sister Breast cancer Social History Housing: House Alcohol intake: current Alcohol intake frequency: holidays/special occasions only Alcohol type: wine Patient Tobacco Use Status: Former Tobacco user Cigarette Packs Per Day: 1 Cigarettes Per Day: 20 Years Smoked: 10 e-Cigarette/Vaping Use: Never Used Current occupational status: retired Cognitive needs: No Hearing needs: No Vision needs: Yes Review of Systems Const All systems reviewed & are unremarkable except as noted in HPI and below Reports no additional complaints ENT Reports Normal hearing present Card Denies chest pain, Denies chest pain at rest, Denies chest pain with activity and Denies pedal edema Resp Denies cough GI Denies abdominal pain Musc Denies abnormal gait, Denies muscle cramps and Denies radiating pain into limb Skin/Breast Denies skin ulcer and Denies wounds Neuro Reports Normal hearing present and Denies abnormal gait Psych Reports no additional complaints Physical Exam Vital Signs: BMI result Body Mass Index 40.7 Const General: cooperative, healthy appearing and comfortable Orientation/consciousness: oriented to person, oriented to place and oriented to time HEENT Head: Yes normal to inspection Neck Neck: Yes normal visual inspection Carotids: no bruits Chest Chest palpation & inspection: normal inspection of the chest Resp Effort & Inspection: normal respiratory effort and able to speak in complete sentences Auscultation: clear to auscultation bilaterally, no crackles, no rales, no rhonchi and no wheezes Cardio Rate: regular rate Rhythm: regular rhythm Heart sounds: S1 normal heart sound present and S2 normal heart sound present Bruits: no carotid bruits Peripheral pulses: Peripheral pulses 2+ throughout GI Inspection: Yes normal to inspection Skin Wounds: no wounds Hair: normal Neuro General: oriented to person, oriented to place and oriented to time Cranial nerves: Yes CN's II-XII intact bilaterally and Yes Normal hearing present Cognition (Neuro): normal cognition Motor exam (neuro): 5/5 motor strength present throughout Extrem Other: venous exam: No significant superficial varicosities or spider telangiectasias, minimal edema General: No clubbing, No cyanosis and No edema Psych Appearance: grossly normal Mental Status: mental status grossly normal Speech and movement: Normal speech and movement present Assessment & Plan Assessment & Plan (1) DVT (deep venous thrombosis): Code(s): I82.409 - Acute embolism and thrombosis of unspecified deep veins of unspecified lower extremity Category: Medical Qualifiers: DVT location: lower extremity Affected thrombotic vein of extremity: femoral Chronicity: acute Laterality: right Qualified Code(s): I82.411 - Acute embolism and thrombosis of right femoral vein Plan: In short patient had acute onset DVT early July. She has been started on Eliquis and appears to be doing relatively well with that. Would recommend a minimum of 6 months of anticoagulation. This can be controlled by the primary care team. She will follow up with us in 6 months to ensure that she is doing relatively well with that and to assess the status of her leg. She will follow up with us in 6 months time. Thank you for allowing us to assist in her care. Coding Level of Care Code Est Pt Level 4 (07229) Diagnoses Acute deep vein thrombosis (DVT) of femoral vein of right lower extremity I82.411 DVT location: lower extremity Affected thrombotic vein of extremity: femoral Chronicity: acute Laterality: right
[2024-09-01 11:42] VITALS: BMI 40.7
== END 2024-09-01 12:56 | disposition home or self-care (01) ==
PROVIDERS: PCP Internal Medicine; Visit Provider Surgery Vascular Surgery
DX: I82.411 Acute embolism and thrombosis of right femoral vein (principal)
CPT/HCPCS: 99214

== ENCOUNTER → 2024-09-01 11:37 | Outpatient (BNVA) | payer MEDICARE, OTHER, SELFPAY | PROVIDERS: PCP Internal Medicine; Visit Provider Surgery Vascular Surgery | DX: I82.411 Acute embolism and thrombosis of right femoral vein (principal) | CPT/HCPCS: 99212 ==

== ENCOUNTER 2024-10-04 08:51 | Outpatient (AMB) | payer MEDICARE, OTHER, SELFPAY ==
--- NOTE | 2024-10-04 09:03 | MHC.OFFVISWM ---
VS Expanded 10/04/24 09:04 BP 174/86 H Blood Pressure Location Rt brachial Pulse 57 Pulse Source Pulse Oximeter Temp 97.2 F Temperature Source Temporal Artery Scan Pulse Oximetry 97 Height 5 ft 4.5 in Weight 237 lb 6.4 oz BMI 40.1 Body Fat % 48.3 Body Fat Mass 114.6 Fat Free Mass 122.6 Visceral Fat Rating 17 Body Water % 36.4 Body Water Mass 86.4 Muscle Mass/Score 116.4 Basal Metabolic Rate/Score 1,725 Intake Visit Reasons: OV PO GBP 07/31/16 Allergies latex [LATEX] Allergy (Unknown, Verified 10/04/24 09:11) RASH Penicillins [PENICILLINS] Allergy (Unknown, Verified 10/04/24 09:11) DIFFICULTY BREATHING - YRS AGO tape Allergy (Unknown, Uncoded 10/04/24 09:11) redness and itching Medication List - Last Reconciled 10/04/24 by Jhony Moon, RN apixaban (Eliquis DVT-PE Treat 30D Start) PO PER PKG DIR apixaban (Eliquis) 5 mg PO BID calcium carbonate 1,000 mg (2 x 500 mg calcium (1,250 mg)) PO TID 30 days cetirizine mg PO DAILY cholecalciferol (vitamin D3) 3,000 units PO DAILY docusate sodium (Colace) 100 mg PO DAILY mirabegron ER 50 mg PO DAILY multivitamin 1 tab PO DAILY mupirocin 2% 1 appl topical BID-TID PRN omeprazole 40 mg PO DAILY PRN Synthroid (levothyroxine) 150 mcg PO DAILY 90 days NS vitamin A palmitate 10,000 units PO DAILY HPI Comments Details: This?is a?74?yo F who is s/p RYGB 07/31/2016. Presents for 8 year 2 month post op visit. Weight at last visit on 01/27/2024 was 239.2 pounds, weight today is 237.4 pounds, representing a 1.8 pound weight loss with a BMI today of 40.1.? No complaints of nausea, emesis, abdominal pain or reflux, or constipation. Pt recently found to have DVT, on Eilquis. Present meal plan includes: breakfast- Premier Protein premade shake, 30g lunch- same shake snack- Zone Perfect or Fitcrunch, or 2 eggs, or cheese stick, and add 1 serving fruit (berries, apples, kiwi, pear) or veg dinner- 3oz protein, 3oz veg has been doing one shake per day, had been having chips but wants to use protein chips instead Exercise- has not been using [employer] [facility] has not been swimming, got out of routine planning to set up a gym at home, has saved senior workout videos Have you been diagnosed with reflux (GERD)? yes- on omeprazole Score 0-5: 0=no symptoms, 1=noticeable but not bothersome (slight or occasional), 2=noticeable, bothersome but not daily, 3=bothersome and daily, 4=affects daily activities, 5=incapacitating, unable to do daily activities How bad is the heartburn: 2 Heartburn when lying down: 2 Heartburn when standing up: 0 Heartburn after meals: 2 Does heartburn change your diet: 2 Does heartburn wake you up from sleep: 2 Do you have difficulty swallowin Do you have pain with swallowin If you take medication for reflux, does this affect your daily life: 0 Total score: 10 PFSH Medical History Mixed stress and urge incontinence Itching of ear History of adenomatous polyp of colon Bilateral chronic knee pain History of folliculitis Osteopenia of left femoral neck Closed fracture of radial styloid Lumbago with sciatica Varicose veins of bilateral lower extremities with pain Menopause Furunculosis of multiple sites Tubular adenoma of colon Obesity H/O non anemic vitamin B12 deficiency Erythema intertrigo GERD (gastroesophageal reflux disease) Hypertension Hypothyroidism Surgical History History of colonoscopy History of Bradley-en-Y gastric bypass Hx laparoscopic cholecystectomy Family History Father No problems noted. Mother No problems noted. Sister Breast cancer Social History Housing: House Alcohol intake: current Alcohol intake frequency: holidays/special occasions only Alcohol type: wine Patient Tobacco Use Status: Former Tobacco user Cigarette Packs Per Day: 1 Cigarettes Per Day: 20 Years Smoked: 10 e-Cigarette/Vaping Use: Never Used Current occupational status: retired Cognitive needs: No Hearing needs: No Vision needs: Yes Physical Exam Vital Signs: Last Vital Signs Temp 97.2 F 10/04/24 09:04 Pulse 57 10/04/24 09:04 BP 174/86 H 10/04/24 09:04 Pulse Ox 97 10/04/24 09:04 BMI result Body Mass Index 40.1 Assessment & Plan Assessment & Plan (1) H/O gastric bypass: Code(s): Z98.84 - Bariatric surgery status Category: Surgical (2) Morbid obesity: Code(s): E66.01 - Morbid (severe) obesity due to excess calories Category: Medical Plan Reviewed options for meal plans, bars. Advised 1 protein drink, 2 protein bars/snacks and one small meal to ideally get to protein goal of 90g. Pt is interested in GLP1 agonists. Will order Zepbound. Discussed need for adequate protein intake while on GLP1s as well as frequent communication with our office. Pt will check in with me weekly and is aware that subsequent Rx will be dependent on frequent communication. RTC 3 months. Due for labs in December. I spent a total of 30 minutes reviewing/updating records, examining the patient and counseling the patient on weight management as detailed above. Medications: New tirzepatide (weight loss) (Zepbound) for 4 weeks 2.5 mg (0.5 mL) subcut QWEEK 2 mL 0RF
[2024-10-04 09:04] VITALS: BP 174/86; PULSE 57; TEMP 36.2; O2SAT 97; BMI 40.1
--- OUTSIDE RECORDS SUMMARY | 2024-10-04 09:28 | XMS_ITS ---
Author Organization [facility] Address [address] [place] [address] Care Team Providers Care Technical Sales Specialist Name Role Phone Mariusz MAHONEY, Karla Primary Care Provider Mandeep Truner [phone] ALLERGIES Allergen (clinical drug ingredient) Drug/Non Drug Allergy documented on EMR Reaction Allergy Type Onset Date Status Penicillin difficulty breathing Drug Allergy Active Tape redness and itching Allergy Active Latex latex (uncoded) rash Allergy Acti ve REASON FOR VISIT Patient presents today for a COLON SCREENING MEDICATIONS Medication SIG (Take, Route, Frequency, Duration) Notes Start Date End Date Status Opurity Active Omeprazole Magnesium 20 MG 1 tablet 30 m inutes before morning meal Orally as needed Active Vitamin A Active Synthroid 150 MCG Oral for 90 Active Mirabegron ER 25 MG TAKE 1 TABLET BY BARTOLOME TH EVERY DAY Oral for 90 Active Calcium Citrate Acti ve Vitamin D3 Active ZyrTEC Active SOCIAL HISTORY Tobacco Use: Social History Observation Description Date Details (start date - stop date) Former Smoker NA - NA Sex Assigned At : Social History Observation Description Sex Assigned At Unknown Tobacco Use/Smoking Question Answer Notes Patient is a former smoker How long has it been since you last smoked? > 10 years Alcohol Screen Question Answer Notes Did you have a drink contain ing alcohol in the past year? Yes How often did you have a dri nk containing alcohol in the past year? Never (0 point) How many drinks did you have on a typical day when you were drinking in the past year? 1 or 2 drinks (0 point) How often did you have 6 or more drinks on one occasion in the past year? Never (0 point) Points 0 Interpretation Negative PROBLEMS Problem Type ICD Code Onset Dates Problem Status W/U Status Risk SNOMED Code Notes Problem Colon cancer screening (Z12.11) Active confirmed Colon cancer screening (667760122) Problem Personal history of colonic polyps (Z86.010) Active confirmed History of polyp of colon (situation) (661148465) Problem Encounter for other preprocedural examination (Z01.818) Active confirmed Pre-procedure evaluation check (204133426) VITAL SIGNS BMI 40.72 kg/m2 06/28/2024 Blood pressure systolic 136 mm Hg 06/28/20 24 Blood pressure diastolic 76 mm Hg 024 Height 5 ft 4.5 in in 06/28/2024 Weight 241 lbs 06/28/2024 Encounters Encounter Location Date Provider Diagnosis [facility] [address] [place] [address] 06/28/2024 Mandeep Sr Colon cancer screeni ng Z12.11 ; Personal history of colonic polyps Z86.010 and Encounter for other preprocedural examination Z01.818 ASSESSMENTS Encounter Date Diagnosis Assessment Notes Treatment Notes Treatment Clinical Notes 06/28/2024 Colon cancer screening (ICD-10 - Z12.11) Stop the vitamin with iron foir 1 week before the colonoscopy 06/28/2024 Personal history of colonic polyps (ICD-10 - Z86.010) 06/28/2024 Encounter for other preprocedural examination (ICD-10 - Z01.818) PLAN OF TREATMENT Treatment Notes Assessment Notes Colon cancer screening Stop the vitamin with iron foir 1 week before the colonoscopy Future Test Test Name Order Date COLONOSCOPY 06/28/2024 Next Appt Details Follow Up: prn, Reason: Provider Name:Mandeep Sr , 10/26/2024 08:30:00 AM, [address] [place] [address] , [place], [place], [phone], Progress Notes * Examination Category Sub-Category Detail Notes General Examination GENERAL APPEARANCE: pleasant , well nourished, well developed, in no acute distress HEAD: EYES: sclera non-icteric EARS: NOSE: THROAT: NECK/THYROID: no cervical lymphade nopathy, neck supple HEART: S1, S2 normal CHEST: LUNGS: clear to auscultatio n bilaterally ABDOMEN: normal bowel sounds, no guarding or rigidity, no guarding or rigidity, no masses palpable, soft, nontender, nondistended NEUROLOGIC: alert and oriented SKIN: nonjaundiced, no spi kathy angiomata EXTREMITIES: no edema PERIPHERAL PULSES: BACK: BREASTS: MUSCULOSKELETAL: MALE GENITOURINARY: LYMPH NODES: RECTAL EXAM: FEMALE GENITOURINARY: ORAL CAVITY: mucosa moist
--- OUTSIDE RECORDS SUMMARY | 2024-10-04 09:28 | XMS_ITS | Patient Health Record ---
Author Organization [facility] Address [address] [place] [address] Care Team Providers Care Building Superintendent Name Role Phone Mariusz MAHONEY, Karla Primary Care Provider Mandeep Turner [phone] ALLERGIES Allergen (clinical drug ingredient) Drug/Non Drug Allergy documented on EMR Reaction Allergy Type Onset Date Status Penicillin difficulty breathing Drug Allergy Active Tape redness and itching Allergy Active Latex latex (uncoded) rash Allergy Acti ve REASON FOR REFERRAL No Information MEDICATIONS Medication SIG (Take, Route, Frequency, Duration) Notes Start Date End Date Status Opurity Active Omeprazole Magnesium 20 MG 1 tablet 30 m inutes before morning meal Orally as needed Active Vitamin A Active Calcium Citrate Acti ve Vitamin D3 Active Synthroid 150 MCG Oral for 90 Active ZyrTEC Active Mirabegron ER 25 MG TAKE 1 TABLET BY BARTOLOME TH EVERY DAY Oral for 90 Active SOCIAL HISTORY Tobacco Use: Social History [...] screening (Z12.11) Active confirmed Colon cancer screening (741955533) Problem Personal history of colonic polyps (Z86.010) Active confirmed History of polyp of colon (situation) (456258710) Problem Encounter for other preprocedural examination (Z01.818) Active confirmed Pre-procedure evaluation check (710188561) VITAL SIGNS Blood pressure diastolic 76 mm Hg 06/28/2024 Height 5 ft 4.5 in in 06/28/2024 Blood pressure systolic 136 mm Hg 06/28/2024 Weight 241 lbs 06/28/2024 BMI 40.72 kg/m2 06/28/2024 Encounters Encounter Location Date Provider Diagnosis [facility] [address] [place] [address] 06/28/2024 Mandeep Sr Colon cancer screeni ng [...] examination (ICD-10 - Z01.818) PLAN OF TREATMENT Future Test Test Name Order Date COLONOSCOPY 06/28/2024 Next Appt Details Provider Name:Mandeep Castillo Orin , 10/26/2024 08:30:00 AM, [address] , [place], [place], [phone], Insurance Providers Payer Name Payer Address Payer Phone Subscriber Number Group Number Insured Name Patient Relationship to Insured Coverage Start Date Coverage End Date MEDICARE OF [place] [address] [place] [address] [phone] [id number] MONAE DENIS Self - patient is the insured [employer] [address] [place] [phone] [id number] CIRALAURIE GODINEZNA Self - patient is the insured MEDICAL (GENERAL) HISTORY Medical History History ICD Code Hypothyroidism GERD Tubular adenoma of colon-has had colonoscopies every 5 years with the last one in approx 2019 Denies [place],DM,CVA,Lung disease,renal dise ase Surgical History Surgery Date(Month/Year) Gastric bypass with Dr. Olson-lost > 100# CCY
== END 2024-10-04 09:43 | disposition home or self-care (01) ==
PROVIDERS: PCP Internal Medicine; Visit Provider Physician Assistant Surgical
DX: E66.813 Obesity, class 3 (principal); Z68.41 Body mass index [BMI] 40.0-44.9, adult; Z98.84 Bariatric surgery status
CPT/HCPCS: 99214; G2211

== ENCOUNTER → 2024-10-04 08:51 | Outpatient (BNVA) | payer MEDICARE, OTHER, SELFPAY | PROVIDERS: PCP Internal Medicine; Visit Provider Physician Assistant Surgical | DX: E66.01 Morbid (severe) obesity due to excess calories (principal); Z98.84 Bariatric surgery status | CPT/HCPCS: 99212 ==

== ENCOUNTER → 2025-01-14 07:45 | Outpatient (BNV) | payer MEDICARE, OTHER, SELFPAY | PROVIDERS: PCP Internal Medicine; Visit Provider Internal Medicine | DX: Z12.31 Encounter for screening mammogram for malignant neoplasm of breast (principal) | CPT/HCPCS: 77063; 77067 ==

== ENCOUNTER 2025-01-14 07:50 | Outpatient (REF) | payer MEDICARE, OTHER, SELFPAY ==
--- OUTSIDE RECORDS SUMMARY | 2025-01-14 07:52 | XMS_ITS ---
Author Organization [facility] Address [address] [place] [address] Care Team Providers Care Manager Rn Name Role Phone Mariusz MAHONEY, Karla Primary Care Provider Mandeep Turner [phone] REASON FOR VISIT screening,hx polyps Encounters Encounter Location Date Provider Diagnosis [facility] [place] [facility] [address] [place] [phone] 10/26/2024 Mandeep Sr Plan Of Treatment Next Appt Details Provider Name:Mandeep Sr , 02/13/2025 08:30:00 AM, [address] [place] [address], [phone], Progress Notes * CIRAMONAE GODINEZDOB:1950 (74 yo F)Acc No.[id number]:10/26/2024 COLON WITH MAC Patient:?MONAE DENIS Provider:?Mandeep Sr MD :1950???Age:74 Y???Sex:Female D ate:10/26/2024 Address:[address] [place], [place] [phone] Pcp:Karla Vee MD Subjective: * Chief Complaints: * ???1. Screening,hx polyps. * Medical History:? Objective: * Vitals:? Assessment: Plan: * Treatment: * * The named appointment provid er may or may not be the originator of this progress note, and it is not deemed complete until electronically signed by the appointment provider. Sign off status: Pending * Provider:?Mandeep Sr MD Date:? 025 Generated for Kia alvarado/Khadijah/Aneesh on:?01/14/2025 07:52 AM EDT
== END 2025-01-14 07:51 | disposition home or self-care (01) ==
LOC: HO.MAMMO 07:50
PROVIDERS: PCP Internal Medicine; Visit Provider Internal Medicine
DX: Z12.31 Encounter for screening mammogram for malignant neoplasm of breast (principal)
CPT/HCPCS: 77063; 77067

== ENCOUNTER 2025-02-13 07:21 | Day surgery (SDC) | payer MEDICARE, OTHER, SELFPAY ==
[2025-02-09 14:31] VITALS: BMI 40.7
--- NOTE | 2025-02-13 07:32 | HO.ANESPROP2 ---
[facility] Active Problems Active Problems: All Active Problems (Updated 09/01/24 @ 13:05 by Rahul Aguilar MD) DVT (deep venous thrombosis) (Acute) Pain of right lower extremity (Acute) Mixed stress and urge incontinence (Acute) History of adenomatous polyp of colon (Acute) Bilateral chronic knee pain (Acute) History of folliculitis (Acute) Osteopenia of left femoral neck (Acute) Parathyroid hormone excess (Acute) H/O gastric bypass (Acute) Morbid obesity (Acute) Erythema intertrigo (Acute) GERD (gastroesophageal reflux disease) (Acute) Hypertension (Acute) Hypothyroidism (Acute) Past Medical History Medical History Mixed stress and urge incontinence Itching of ear History of adenomatous polyp of colon Bilateral chronic knee pain History of folliculitis Osteopenia of left femoral neck Closed fracture of radial styloid Lumbago with sciatica Varicose veins of bilateral lower extremities with pain Menopause Furunculosis of multiple sites Tubular adenoma of colon Obesity H/O non anemic vitamin B12 deficiency Erythema intertrigo GERD (gastroesophageal reflux disease) Hypertension Hypothyroidism Functional capacity: independent ambulation Patient : No Family History Family History Father No problems noted. Mother No problems noted. Sister Breast cancer Family history of problems with anesthesia: No Surgical History Surgical History History of colonoscopy History of Bradley-en-Y gastric bypass Hx laparoscopic cholecystectomy History of Problems with Anesthesia: No Social History Social History Housing: House Alcohol intake: current Alcohol intake frequency: holidays/special occasions only Alcohol type: wine Patient Tobacco Use Status: Former Tobacco user Cigarette Packs Per Day: 1 Cigarettes Per Day: 20 Years Smoked: 10 e-Cigarette/Vaping Use: Never Used Advance Directives: No Advance Directives Information Provided: Yes Current occupational status: retired Cognitive needs: No Hearing needs: No Vision needs: Yes Meds Allergies Allergy/AdvReac Type Severity Reaction Status Date / Time latex (LATEX) Allergy Unknown RASH Verified 10/04/24 09:11 Penicillins (PENICILLINS) Allergy Unknown DIFFICULTY Verified 10/04/24 09:11 BREATHING - YRS AGO tape Allergy Unknown redness Uncoded 10/04/24 09:11 and itching Active Medications: Current Medications Sodium Biphosphate/Sodium Phosphate (Sodium Phosphate,[place]-Dibasic 133 Ml Enema) 133 ml UT ONCE PRN PRN Reason: Poor Colonoscopy Prep Results Home Medications ?Medication ?Instructions ?Recorded ?Confirmed ?Last Taken ?Type cetirizine 10 mg capsule 10 mg PO DAILY 05/24/20 02/09/25 Unknown History cholecalciferol (vitamin D3) 25 3,000 unit PO DAILY 04/01/23 02/09/25 Unknown History mcg (1,000 unit) capsule mecobalamin 1,000 mcg-folic acid 1 tab PO DAILY 02/09/25 02/09/25 Unknown History 200 mcg sublingual tablet (Opurity) mirabegron 25 mg tablet,extended 25 mg PO DAILY 02/09/25 02/09/25 Unknown History release 24 hr omeprazole 40 mg capsule,delayed 20 mg PO DAILY PRN heartburn 02/09/25 02/09/25 Unknown History release Exam Height,Weight and Vital Signs: Height 5 ft 4.5 in Weight 109.316 kg Airway Mallampati Class: III TM Dist: >3cm Neck ROM: Full Heart: CTA Lungs: RRR Assessment and Plan Final Anesthetic Review Family History of Problems with Anesthesia: No History of Problems with Anesthesia: No NPO: Yes ASA Class: III Final Preanesthetic Review: Meds/Allgs Chart Reviewed, Consent Obtained/Reviewed and Anes Risks/Benef Reviewed Patient Risk: Intermediate Procedure Risk: Low Anesthetic Plan Anesthetic Plan: MAC: Disposition: Standard PACU
[2025-02-13] MEDS: Lactated Ringers 1,000 ML 80 ML IVCONT (07:52)
[2025-02-13 07:53] VITALS: BP 144/76; PULSE 68; RESP 18; TEMP 36.5; O2SAT 95
[2025-02-13 07:54] VITALS: BMI 40.0
--- NOTE | 2025-02-13 09:43 | P.BOP_ITS ---
Brief Operative Note Date of Service: 02/13/25 Pre-op diagnosis: Screening Post-op diagnosis: other (Diverticulosis) Procedure: Colonoscopy to the cecum and TI Surgeon: Mandeep Sr MD Anesthesia: MAC Was an Medicaid Nurse used for this Procedure?: No Estimated blood loss (mL): 0 Pathology: none sent Condition: stable Disposition: PACU
[2025-02-13 09:45] VITALS: BP 119/61; PULSE 72; RESP 17; TEMP 36.3; O2SAT 99
[2025-02-13 10:00] VITALS: BP 119/62; PULSE 64; RESP 17; O2SAT 99
[2025-02-13 10:12] VITALS: BP 114/63; PULSE 59; RESP 14; TEMP 36.3; O2SAT 99
--- NOTE | 2025-02-13 11:06 | OP_ITS ---
DATE OF SERVICE: 02/13/2025 SURGEON: Mandeep Sr MD INDICATIONS: The patient presents for evaluation of colorectal cancer screening. Full consent obtained from her for this, including risks of bleeding and perforation. PREOPERATIVE DIAGNOSIS: POSTOPERATIVE DIAGNOSIS: PROCEDURE PERFORMED: Colonoscopy to cecum and terminal ileum. ESTIMATED BLOOD LOSS: COMPLICATIONS: ANESTHESIA: Monitored anesthesia care. ASSISTANTS: SPECIMENS: PREOPERATIVE DIAGNOSES: Colorectal cancer screening and personal history of tubular adenoma of the colon. POSTOPERATIVE DIAGNOSES: Colorectal cancer screening and personal history of tubular adenoma of the colon, diverticulosis and internal hemorrhoids. DESCRIPTION OF PROCEDURE: The patient was placed in the left lateral decubitus position. The digital rectal exam revealed no abnormalities. The Olympus video pediatric colonoscope was entered into the rectum and advanced easily to the cecum. Once in the cecum, I did identify normal-appearing cecal pouch with appendiceal orifice and normal-appearing ileocecal valve. The terminal ileum was cannulated and appeared normal. The scope was withdrawn back in the colon. The entire cecum and ileocecal valve appeared normal. The scope was slowly withdrawn assessing all mucosal surfaces carefully. Preparation was excellent. I did not visualize any sign of polyps, colitis, nor angiodysplasia. There was a mild amount of sigmoid diverticulosis. In the rectum, scope was retroflexed visualizing internal hemorrhoids, but no other pathology. The rectal mucosa appeared normal. The scope was straightened and withdrawn from the patient. She tolerated the procedure well and was returned to recovery area in stable condition. IMPRESSION: 1. Diverticulosis. 2. Internal hemorrhoids. PLAN: Given the negative exam and her age, I do not think she will need any further screening colonoscopies. She will otherwise see me on a p.r.n. basis. Of note, she advised me that she is no longer on Eliquis and therefore does not need any instructions in that regard. MD SANDRA Murphy/REGINO / [phone]
--- NOTE | 2025-02-13 12:56 | HO.POSTANES ---
Post Anesthesia Evaluation Post Anesthesia Evaluation Date of Service: 02/13/25 Vital Signs: Vital Signs Temp Pulse Resp BP Pulse Ox O2 Del Method O2 Flow Rate 02/13/25 10:12 97.3 F 59 14 114/63 99 Room Air 02/13/25 10:00 64 17 119/62 99 Room Air 02/13/25 09:45 97.4 F 72 17 119/61 99 Simple Mask 3 02/13/25 07:53 97.7 F 68 18 144/76 H 95 Room Air Anesthesia: Monitored Mental Status: Awake Pain Control: Satisfactory Nausea/Vomiting: None Hydration: Adequate Anesthesia-Related Issues: No Anes. Related Issues
== END 2025-02-13 10:25 | disposition home or self-care (01) ==
PROVIDERS: PCP Internal Medicine; Visit Provider Internal Medicine
PROC: 0DJD8ZZ Inspection of Lower Intestinal Tract, Via Natural or Artificial Opening Endoscopic (ICD-10-PCS; CPT 45378; principal; 2025-02-13 08:40)
DX: Z12.11 Encounter for screening for malignant neoplasm of colon (principal); K57.30 Diverticulosis of large intestine without perforation or abscess without bleeding; K64.8 Other hemorrhoids; Z86.0101 Personal history of adenomatous and serrated colon polyps; Z83.719 Family history of colon polyps, unspecified; I10 Essential (primary) hypertension; E03.9 Hypothyroidism, unspecified; K21.9 Gastro-esophageal reflux disease without esophagitis; Z86.718 Personal history of other venous thrombosis and embolism; Z98.84 Bariatric surgery status; Z79.01 Long term (current) use of anticoagulants; Z79.899 Other long term (current) drug therapy
CPT/HCPCS: G0105; J2003; J2704

== ENCOUNTER 2025-02-18 08:31 | Outpatient (REF) | payer MEDICARE, OTHER, SELFPAY ==
--- OUTSIDE RECORDS SUMMARY | 2024-10-26 04:30 | XMS_ITS ---
Author Organization [facility] Address [address] [place] [address] Care Team Providers Care First Assistant Name Role Phone Mariusz MAHONEY, Karla Primary Care Provider Mandeep Turner [phone] REASON FOR VISIT screening,hx polyps Encounters Encounter Location Date Provider Diagnosis [facility] [address] [place] [phone] 10/26/2024 Mandeep Sr Plan Of Treatment No Information Progress Notes * MONAE DENISDOB:1950 (74 yo F)Acc No.[id number]:10/26/2024 COLON WITH MAC Patient: MONAE FARRIS Provider: Shani Sr MD :1950 A ge:74 Y S ex:Female Date:10/26/2024 Address:[address] [place], [place] [phone] Pcp:Karla Vee MD Subjective: * Chief Complaints: * 1 . Screening,hx polyps. * Medical History: Objective: * Vitals: Assessment: Plan: * Treatment: * * The named appointment provid er may or may not be the originator of this progress note, and it is not deemed complete until electronically signed by the appointment provider. Sign off status: Pending * Provider: Shani Sr MD Date: 0 10/26/2024 Generated for Kia alvarado/Khadijah/eTransmitting on: 02/18/2025 08:33 AM EDT
[2025-02-18 11:19] LABS: Hemoglobin 14.9 g/dl (12.0-16.0)
[2025-02-18 11:26] LABS: Alanine Aminotransferase 25 U/L (0-31); Albumin Level 3.8 g/dL (3.5-5.0); Alkaline Phosphatase 119 U/L (39-117); Anion Gap 12 (12-20); Aspartate Amino Transferase 29 U/L (5-31); Bilirubin Total 0.6 mg/dL (0.0-1.0); Blood Urea Nitrogen 14 mg/dL (9-16); Calcium 9.2 mg/dL (8.4-10.2); Carbon Dioxide 26 mmol/L (22-29); Chloride 108 mmol/L (96-108); Estimated Glomerular Filt Rate > 60; Glucose Fasting 91 mg/dL (60-99); Potassium 3.6 mmol/L (3.3-5.1); Sodium 142 mmol/L (135-145)
[2025-02-18 11:53] LABS: Thyroid Stimulating Hormone 0.28 uIU/mL (0.32-4.0); Vitamin D 25-OH Total 59.5 ng/mL (>30)
[2025-02-18 11:55] LABS: Folate 14.8 ng/mL (> or = 4.0); Vitamin B12 772 pg/mL (200-900)
== END 2025-02-18 08:32 | disposition home or self-care (01) ==
LOC: HO.HMGCLDS 08:31
PROVIDERS: PCP Internal Medicine; Visit Provider Internal Medicine
DX: I10 Essential (primary) hypertension (principal); E03.9 Hypothyroidism, unspecified; M85.852 Other specified disorders of bone density and structure, left thigh; E66.01 Morbid (severe) obesity due to excess calories; Z98.84 Bariatric surgery status
CPT/HCPCS: 36415; 80053; 82306; 82607; 82746; 84439; 84443; 85014; 85018

== ENCOUNTER 2025-03-02 08:52 | Outpatient (AMB) | payer MEDICARE, OTHER, SELFPAY ==
--- OUTSIDE RECORDS SUMMARY | 2024-10-26 04:30 | XMS_ITS ---
Author Organization [facility] Address [address] [place] [address] Care Team Providers Care Director Of Oncology Name Role Phone Mariusz MAHONEY, Karla Primary Care Provider Mandeep Turner [phone] REASON FOR VISIT screening,hx polyps Encounters Encounter Location Date Provider Diagnosis [facility] [place] Out[place] [address] [place] [phone] 10/26/2024 Mandeep Sr Plan Of Treatment No Information Progress Notes * MONAE DENISDOB:1950 (74 yo F)Acc No.[id number]:10/26/2024 COLON WITH MAC Patient: MONAE FARRIS Provider: Shani Sr MD :1950 A ge:74 Y S ex:Female Date:10/26/2024 Address:[address] [place], [place] [id number] Pcp:Karla Vee MD Subjective: * Chief Complaints: [...] 10/26/2024 Generated for Kia alvarado/Khadijah/eTransmitting on: 0 03/02/2025 09:10 AM EDT
[2025-03-02 09:02] VITALS: BMI 40.0
--- NOTE | 2025-03-02 09:02 | MHC.OFFVIS ---
Vital Signs 03/02/25 09:02 Height 5 ft 4.5 in Weight 237 lb BMI 40.0 Intake Visit Reasons: 6 month leg check follow up Intake Note: 6 mo leg check s/p Right LE DVT 08/04/24. Pt states leg feels much better and is no longer on blood thinners. 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 Director Intelligence Analysis Programs Required: No Accompanied by: Self / Same As Patient Allergies latex (LATEX) Allergy (Unknown, Verified 03/02/25 09:05) RASH Penicillins (PENICILLINS) Allergy (Unknown, Verified 03/02/25 09:05) DIFFICULTY BREATHING - YRS AGO tape Allergy (Unknown, Uncoded 03/02/25 09:05) redness and itching HPI HPI 6 month leg check follow up: Details: The patient is a 74-year-old female presenting for follow-up regarding Deep Vein Thrombosis (DVT). The DVT was diagnosed in July 2024, and the patient was subsequently placed on Eliquis as an anticoagulant therapy. The patient completed her course of blood thinners on February 02, 2025. In 2020, the patient underwent an ablation procedure performed by the vascular surgery team. Currently, the patient reports no issues with her legs and denies any symptoms of swelling or discomfort. The patient has been advised to use compression stockings to manage potential future swelling due to valve damage from the clots. She finds it challenging to wear them, especially during the hot summer months, but acknowledges the importance of light compression. The patient tries to maintains an active lifestyle by keeping her legs elevated while resting and ensuring she gets adequate steps daily. [facility] Medical History Mixed stress and urge incontinence Itching of ear History of adenomatous polyp of colon Bilateral chronic knee pain History of folliculitis Osteopenia of left femoral neck Closed fracture of radial styloid Lumbago with sciatica Varicose veins of bilateral lower extremities with pain Menopause Furunculosis of multiple sites Tubular adenoma of colon Obesity H/O non anemic vitamin B12 deficiency Erythema intertrigo GERD (gastroesophageal reflux disease) Hypertension Hypothyroidism Surgical History History of colonoscopy History of Bradley-en-Y gastric bypass Hx laparoscopic cholecystectomy Family History Father No problems noted. Mother No problems noted. Sister Breast cancer Social History Housing: House Are you a primary plant care worker to a significant other at home: No Do you presently have visiting nurse or other home services: No Alcohol intake: current Alcohol intake frequency: holidays/special occasions only Alcohol type: wine Patient Tobacco Use Status: Former Tobacco user Cigarette Packs Per Day: 1 Cigarettes Per Day: 20 Years Smoked: 10 e-Cigarette/Vaping Use: Never Used Current occupational status: retired Cognitive needs: No Hearing needs: No Vision needs: Yes Review of Systems Const All systems reviewed & are unremarkable except as noted in HPI and below Reports no additional complaints ENT Reports Normal hearing present Card Denies chest pain, Denies chest pain at rest, Denies chest pain with activity and Denies pedal edema Resp Denies cough GI Denies abdominal pain Musc Denies abnormal gait, Denies muscle cramps and Denies radiating pain into limb Skin/Breast Denies skin ulcer and Denies wounds Neuro Reports Normal hearing present and Denies abnormal gait Psych Reports no additional complaints Physical Exam Vital Signs: BMI result Body Mass Index 40.0 Const General: cooperative, healthy appearing and comfortable Orientation/consciousness: oriented to person, oriented to place and oriented to time HEENT Head: Yes normal to inspection Neck Neck: Yes normal visual inspection Carotids: no bruits Chest Chest palpation & inspection: normal inspection of the chest Resp Effort & Inspection: normal respiratory effort and able to speak in complete sentences Auscultation: clear to auscultation bilaterally, no crackles, no rales, no rhonchi and no wheezes Cardio Rate: regular rate Rhythm: regular rhythm Heart sounds: S1 normal heart sound present and S2 normal heart sound present Bruits: no carotid bruits Peripheral pulses: Peripheral pulses 2+ throughout GI Inspection: Yes normal to inspection Skin Wounds: no wounds Hair: normal Neuro General: oriented to person, oriented to place and oriented to time Cranial nerves: Yes CN's II-XII intact bilaterally and Yes Normal hearing present Cognition (Neuro): normal cognition Motor exam (neuro): 5/5 motor strength present throughout Extrem Other: venous exam: No significant superficial varicosities or spider telangiectasias, minimal edema General: No clubbing, No cyanosis and No edema Psych Appearance: grossly normal Mental Status: mental status grossly normal Speech and movement: Normal speech and movement present Assessment & Plan Assessment & Plan (1) Varicose veins of right lower extremity with inflammation: Comment: 05/10/2021 right great saphenous vein Cyanoacralate ablation. Code(s): I83.11 - Varicose veins of right lower extremity with inflammation Category: Medical Plan During the visit, I discussed with the patient the completion of her anticoagulation therapy and the importance of using compression stockings to prevent future complications. We also talked about maintaining an active lifestyle and the benefits of keeping her legs elevated to manage any potential swelling. She will follow up with us on an as-needed basis. Thank you for allowing us to assist in her care. Coding Level of Care Code Est Pt Level 3 (13034) Diagnoses Varicose veins of right lower extremity with inflammation I83.11
--- OUTSIDE RECORDS SUMMARY | 2025-03-02 09:11 | XMS_ITS | Clinical Summary ---
Author Organization [facility] Address [address] [place] [address] Phone Care Team Providers Care Machine [employer] Engraver Name Role Phone Karla Vee MD Primary Care Provider [phone] Allergies Active Allergy Reactions Criticality Noted Date Comments Adhes. Bwqm-Vzhm-Luuupeaokvlg Rash 2024 Latex 12/28/2024 Penicillin 12/28/2024 Medications levothyroxine (SYNTHROID, LEVOTHROID) 175 mcg tablet Take 1 tablet (175 mcg total) by mouth. 7 Active Eliquis 5 mg tablet Take 1 tablet (5 mg total) by mouth 2 (two) times a day. 5 Active mupirocin (BACTROBAN) 2 % ointment APPLY TO BIOPSY SITE ONCE DAILY UNTIL HEALED. 5 Active solifenacin (VESICARE) 5 mg tabletIndications: bladder hyperactivity Take 1 tablet (5 mg total) by mouth at bedtime. Swallow tablet whole; do not crush, chew, or split. 90 each 5 04/25/20 25 Active Encounters Date Type Department Care Team Description 01/25/2025 11:45 AM EDT Office Visit Urogynecology [address] [place], [place] [phone] Fatemeh Benjamin MD Nocturnal polyuria (Primary Dx); OAB (overactive bladder) 12/28/2024 1:00 PM EDT Office Visit Urogynecology [place] [address] [place], [place] [address] [place] [phone] Fatemeh Benjamin MD Nocturia (Primary Dx); Urge incontinence of urine from Last 3 Months Social History Tobacco Use Types Packs/Day Years Used Date Smoking Tobacco: Never Assessed Comments Unknown Sex and Gender Information Value Date Recorded Sex Assigned at Not on file Legal Sex Female 7:09 AM EST Gender Identity Not on file Sexual Orientation Not on file Last Filed Vital Signs Vital Sign Reading Time Taken Comments Blood Pressure 135/81 01/25/2025 11:56 AM EDT Pulse 59 01/25/2025 11:56 AM EDT Temperature - - Respiratory Rate - - Oxygen Saturation - - Inhaled Oxygen Concentration - - Weight 115 kg (254 lb) 01/25/2025 11:56 AM EDT Height 162.6 cm (5' 4 ) 01/25/2025 11:56 AM EDT Body Mass Index 43.6 01/25/2025 11:56 AM EDT Plan of Treatment Upcoming Encounters Date Type Department Care Team (Late st Contact Info) Description 05/04/2025 8:45 AM EDT Office Visit Urogynecology [address] [phone] Fatemeh Benjamin MD [address] [facility] [address] [place] [address] Health Maintenance Due Date Last Done Comments RSV Immunization Adult Patients (1 - 1-dose 75+ series) 2024 DTaP,Tdap,and Td Vaccines (5 - Td or Tdap) 05/25/2024 05/25/2014, 05/16/2013, 05/18/2012, Additional history exists Cholesterol Screening (Lipid Panel) 10/04/2024 Colorectal Cancer Screening: Colonoscopy 10/04/2024 Depression Screening 10/04/2024 Falls Risk Assessment 10/04/2024 Hepatitis C Screening 10/04/2024 Medicare Annual Wellness Visit 10/04/2024 Osteoporosis Screening (Bone Density Screening) 10/04/2024 Social Influencers of Health Screening 10/04/2024 COVID-19 Vaccine (8 - Pfizer risk season) 2024 05/09/2024, 05/25/2023, 05/30/2022, Additional history exists Hypertension/CHF/CAD Annual BMP Blood Test 12/28/2024 Influenza Vaccine (#1) 2025 4, 05/18/2023, 05/12/2022, Additional history exists Pneumococcal Vaccine: 50+ Years Completed 08/04/2016, 03/23/2015 Zoster Vaccines Completed 08/03/2019, 04/25, 07/30/2009 HIB Vaccines Aged Out No longer eligi ble based on patient's age to complete this topic HPV Vaccines Aged Out No longer eligi ble based on patient's age to complete this topic Hepatitis A Vaccines Aged Out No long er eligible based on patient's age to complete this topic Hepatitis B Vaccines Aged Out No long er eligible based on patient's age to complete this topic IPV Vaccines Aged Out No longer eligi ble based on patient's age to complete this topic MMR Vaccines Aged Out No longer eligi ble based on patient's age to complete this topic Meningococcal ACWY Vaccine Aged Out N o longer eligible based on patient's age to complete this topic Meningococcal B Vaccine Aged Out No l onger eligible based on patient's age to complete this topic RSV Immunization Patients Under 20 months Aged Out No longer eligible based on patient's age to complete this topic Varicella Vaccines Aged Out No longer eligible based on patient's age to complete this topic Procedures Procedure Name Priority Date/Time Associated Diagnosis Comments POC URINE AUTO W/O MICRO Routine 12/28/2024 2:07 PM EDT Urge incontinence of urine from Last 3 Months Results * POC Urine Auto W/O Micro (12/28/2024 2:07 PM EDT) Glucose UA POC Negative Negative, Trace mg/dL Bilirubin UA POC Negative Negative, Small Ketones UA POC Negative Negative, Trace Specific [place] UA POC 1.025 Blood UA POC Negative Negative, Large PH UA POC 5.0 Protein UA POC Negative Negative, >=300 mg/dL Urobilinogen UA POC 0.2 E.U./dL mg/dL Nitrite UA POC Negative Negative Leukocytes UA POC Negative Negative Urine Urine specimen obtained by clean catch procedure / Unknown 12/28/2024 2:07 PM EDT us Fatemeh Benjamin MD POINT OF CARE TEST ENTER/EDIT O RDERABLES Final Result from Last 3 Months Insurance MEDICARE [facility] Care Teams Machine [employer] Eng[employer]ver Relationship Specialty Start Date End Date Karla Vee MD [address] [facility] [place] [id number] PCP - General Internal Medicine 10/04/24
== END 2025-03-02 09:27 | disposition home or self-care (01) ==
LOC: HO.HVS 08:53
PROVIDERS: PCP Internal Medicine; Visit Provider Surgery Vascular Surgery
DX: I83.11 Varicose veins of right lower extremity with inflammation (principal)
CPT/HCPCS: 99213

== ENCOUNTER → 2025-03-02 08:52 | Outpatient (BNVA) | payer MEDICARE, OTHER, SELFPAY | PROVIDERS: PCP Internal Medicine; Visit Provider Surgery Vascular Surgery | DX: I83.11 Varicose veins of right lower extremity with inflammation (principal) | CPT/HCPCS: 99212 ==

== ENCOUNTER 2025-03-07 10:50 | Outpatient (AMB) | payer MEDICARE, OTHER, SELFPAY ==
--- OUTSIDE RECORDS SUMMARY | 2024-10-26 04:30 | XMS_ITS ---
Author Organization [facility] Address [address] [place] [address] Care Team Providers Care Engineering Specialist Name Role Phone Mariusz MAHONEY, Karla Primary Care Provider Mandeep Turner [phone] REASON FOR VISIT screening,hx polyps Encounters Encounter Location Date Provider Diagnosis [facility] [address] [place] [phone] 10/26/2024 Mandeep Sr Plan Of Treatment No Information Progress Notes * MONAE DENISDOB:1950 (74 yo F)Acc No.[id number]:10/26/2024 COLON WITH MAC Patient: MONAE FARRIS Provider: Shani Sr MD :1950 A ge:74 Y S ex:Female Date:10/26/2024 Address:[address] [place], [place] [phone] Pcp:Karla Vee MD Subjective: * Chief Complaints: [...] 0 10/26/2024 Generated for Kia alvarado/Khadijah/eTransmitting on: 0 03/07/2025 12:11 PM EDT
[2025-03-07 11:02] VITALS: BP 130/70; PULSE 55; RESP 16; TEMP 36.8; O2SAT 98; BMI 40.0
--- NOTE | 2025-03-07 11:02 | A.OFFPC_ITS ---
Vital Signs 03/07/25 11:02 Height 5 ft 4.5 in Weight 237 lb BMI 40.0 BP 130/70 Blood Pressure Location Lt brachial Position Sitting Respiration 16 Pulse 55 Pulse Source Pulse Oximeter Temp 98.3 F Temp Source Oral Pulse Oximetry (%) 98 Oxygen Delivery Method Room Air Intake Visit Reasons: 7 months follow up Intake Note: Pt is here today for her 7mo. f/u Allergies latex (LATEX) Allergy (Unknown, Verified 03/07/25 11:33) RASH Penicillins (PENICILLINS) Allergy (Unknown, Verified 03/07/25 11:33) DIFFICULTY BREATHING - YRS AGO tape Allergy (Unknown, Uncoded 03/07/25 11:33) redness and itching Medication List - Last Reconciled 03/07/25 by Karla Vee MD calcium citrate 200 mg PO BID cetirizine 10 mg PO DAILY cholecalciferol (vitamin D3) 3,000 units PO DAILY clobetasol 0.025% (Impoyz) 1 appl topical DAILY ketoconazole 2% appl topical BID PRN multivitamin with iron 1 tab PO DAILY mupirocin 2% topical DAILY omeprazole 20 mg PO DAILY PRN solifenacin 5 mg PO BEDTIME Synthroid (levothyroxine) 150 mcg PO DAILY 90 days NS vitamin A palmitate 10,000 units PO DAILY Tobacco use date assessed: 03/07/25 Fall risk assessment: No Falls in past year Last assessed Fall Risk: 03/07/25 Dental Screening Dental Screen Date: 03/07/25 Did you have a dental visit in the last 12 months?: Yes Did you have a dental problem in the last 6 months where you did not have access to dental care?: No Was dental information given to patient?: Patient has dentist HPI 7 months follow up HPI Details 74 ear old lady past medical history of Hypertension, Hypothyroidism, Chronic GERD, Obesity with history of gastric bypass surgery, urinary incontinence, osteopenia of left femoral neck, and history of adenomatous colon polyp, here today for follow-up. She has been feeling well with no new complaints at present time. She has history of DVT in the leg, was on Eliquis for at least 6 months, which was now stopped by vascular surgery. She has been advised to wear compression socks to prevent further recurrence of blood clots. Latest fasting labs showed normal electrolytes, renal function, fasting glucose, liver enzymes, and thyroid levels. [facility] Medical History (Updated 03/08/25 @ 00:42 by Karla Vee MD) History of DVT (deep vein thrombosis) Mixed stress and urge incontinence Itching of ear History of adenomatous polyp of colon Bilateral chronic knee pain History of folliculitis Osteopenia of left femoral neck Closed fracture of radial styloid Lumbago with sciatica Varicose veins of bilateral lower extremities with pain Menopause Furunculosis of multiple sites Tubular adenoma of colon Obesity H/O non anemic vitamin B12 deficiency Erythema intertrigo GERD (gastroesophageal reflux disease) Hypertension Hypothyroidism Surgical History History of colonoscopy History of Bradley-en-Y gastric bypass Hx laparoscopic cholecystectomy Family History Father No problems noted. Mother No problems noted. Sister Breast cancer Social History Housing: House Are you a primary child care team lead to a significant other at home: No Do you presently have visiting nurse or other home services: No Alcohol intake: current Alcohol intake frequency: holidays/special occasions only Alcohol type: wine Patient Tobacco Use Status: Former Tobacco user Cigarette Packs Per Day: 1 Cigarettes Per Day: 20 Years Smoked: 10 e-Cigarette/Vaping Use: Never Used Current occupational status: retired Cognitive needs: No Hearing needs: No Vision needs: Yes Questionnaire PHQ-9 Over the last 2 weeks, how often have you been bothered by any of the following problems? 1. Little interest or pleasure in doing things: not at all 2. Feeling down, depressed, or hopeless: not at all 3. Trouble falling or staying asleep, or sleeping too much: not at all 4. Feeling tired or having little energy: not at all 5. Poor appetite or overeating: not at all 6. Feeling bad about yourself - or that you are a failure or have let yourself or your family down: not at all 7. Trouble concentrating on things, such as reading the newspaper or watching television: not at all 8. Moving or speaking so slowly that other people could have noticed. Or the opposite - being so fidgety or restless that you have been moving around a lot more than usual: not at all 9. Thoughts that you would be better off or of hurting yourself in some way: not at all Total score: 0 Depression Screening Interpretation: Negative Depression Screening Done: Yes 73344 - PHQ-9 Billing: Yes Source: Developed by Drs. Mandeep Martinez, Jeny Almodovar, Braulio Hardy and colleagues, with an educational toby from just[employer]. Thrive Questionnaire Date Thrive assessed: 03/07/25 I am a: Patient What is your living situation today?: I have a steady place to live Within the past 12 months, did the food you bought not last and you didn't have the money to get more?: Never true Within the past 12 months, did you worry whether your food would run out before you got money to buy more?: Never true Do you have trouble paying for medicines?: No Do you have trouble getting transportation to medical appointments?: No Do you have trouble paying your heating and electricity bill?: No Do you have trouble taking care of your child, family member or friend?: No Do you have trouble with day-to-day activities such as bathing, preparing meals, shopping, managing finances, etc.?: No Are you currently unemployed and looking for a job?: No Are you interested in more education?: No Please select the resources that you would like help with: None Currently or been in a relationship where the following occur: No concerns reported THRIVE Score: 0 AUDIT C Alcohol Use Questionnaire (AUDIT-C) 1. How often do you have a drink containing alcohol?: Monthly or less 2. How many drinks containing alcohol do you have on a typical day when you are drinking?: 1 or 2 3. How often do you have six or more drinks on one occasion?: Never Total Score: 1 JORGE-7 AMB Questionnaire JORGE-7 Date JORGE - 7 assessed: 03/07/25 Feeling nervous, anxious, or on edge: 0 = Not at all Not being able to stop or control worryin = Not at all Worrying too much about different things: 0 = Not at all Trouble relaxin = Not at all Being so restless that it is hard to sit still: 0 = Not at all Becoming easily annoyed or irritable: 0 = Not at all Feeling afraid as if something awful might happen: 0 = Not at all Total JORGE-7 score (0-4 normal; 5-9 mild; 10-14 moderate; 15-21 severe): 0 Source: Developed by Drs. Mandeep Martinez, Jeny Almodovar, Braulio Hardy and colleagues, with an educational toby from [employer]. JORGE-7 Assessment Billing JORGE-7 Assessment Tool: JORGE-7 Assessment 50911 Review of Systems Const Reports no additional complaints ENT Reports Normal hearing present Card Denies chest pain, Denies chest pain at rest, Denies chest pain with activity and Denies pedal edema Resp Denies cough GI Denies abdominal pain, Denies melena, Denies change in bowel habits and Denies heartburn Reports no additional complaints Musc Denies abnormal gait, Denies arthralgias, Denies joint swelling, Denies muscle cramps, Denies numbness and Denies radiating pain into limb Skin/Breast Denies skin ulcer and Denies wounds Neuro Reports Normal hearing present, Denies abnormal gait and Denies numbness Psych Reports no additional complaints Endo Reports no additional complaints Omid/Lymph Reports no additional complaints Physical exam (Primary Care) Vital Signs: Last Vital Signs Temp 98.3 F 03/07/25 11:02 Pulse 55 03/07/25 11:02 Resp 16 03/07/25 11:02 BP 130/70 03/07/25 11:02 Pulse Ox 98 03/07/25 11:02 Oxygen Delivery Method Room Air 03/07/25 11:02 BMI result Body Mass Index 40.0 Tobacco/Smoking Status: Tobacco use Status Tobacco use date assessed 03/07/25 03/07/25 11:04 Patient Tobacco Use Status Former Tobacco user 03/07/25 11:04 e-Cigarette/Vaping Use Never Used 03/07/25 11:04 PHQ-9: PHQ-9 Score PHQ-9: Total score 0 03/07/25 11:38 Depression Screening Interpretation: Negative Thrive Assessment: Date of Thrive Assessment Date Thrive assessed 03/07/25 03/07/25 11:04 Currently or been in a relationship where the following occur: No concerns reported Const General: cooperative and no acute distress Orientation/consciousness: patient oriented x3 HENMT Head: Yes normocephalic General nose exam: Normal external nose present Face and sinus: Yes face symmetric Mouth: Normal oral and palatal mucosa present, oropharynx normal and moist mucous membranes Eyes General: appearance normal, both eyes and all related structures Neck Neck: Yes full ROM, Yes no lymphadenopathy and Yes supple Resp Effort & Inspection: normal respiratory effort, no cough and no stridor Cardio Rhythm: regular rhythm GI Inspection: Yes Abdominal panniculus present and Yes obesity Palpation (GI): Soft to palpation, nontender, no guarding and no masses Skin General skin exam: no rashes or lesions noted and dry skin Neuro General: patient oriented x3, gait normal, moves all extremities, Normal light touch and pain sensation, no focal motor deficits and CN's II-XI intact bilaterally Cranial nerves: Yes Normal hearing present Cognition (Neuro): normal cognition Gait exam (Neuro): Normal gait present Extrem Other: Crepitus in both knee General: Yes full ROM, Yes no joint enlargement, Yes no pedal edema, Yes no calf tenderness and Yes normal gait Psych Appearance: grossly normal and well kempt Mental Status: mental status grossly normal Speech and movement: Mute speech present Affect: normal affect Thought process: Normal thought process present Results Reviewed Results Reviewed: Laboratory Tests 02/18/25 08:40 Hgb 14.9 Hct 46.0 Name: Loraine Villarreal Age/Sex: 74/F : 1950 Unit#: [id number] Attend Dr: Karla Vee MD Re02/18/25 Status: DEP REF Location: [facility] Disch: SPEC : [id number] STEVIE: 02/18/25 STATUS: COMP REQ : [id number] RECD: 02/18/25-[address]: Karla Vee MD COMP: 02/18/253 ENTERED: 02/18/[address]: ORDERED: CMP Fast, Vitamin D 25-OH, Free T4, TSH Test Result Flag Reference Sodium 142 135-145 mmol/L Potassium 3.6 # 3.3-5.1 mmol/L CL 108 96-108 mmol/L CO2 26 22-29 mmol/L Gap 12 12-20 BUN 14 9-16 mg/dL Creat 0.65 0.5-1.4 mg/dL eGFR > 60 Chronic Kidney Disease: Estimated GFR < 60 mL/min/1.73m2 Severe Kidney Disease: Estimated GFR < 15 mL/min/1 .73m2 FBS 91 60-99 mg/dL CA 9.2 8.4-10.2 mg/dL Total Bili 0.6 0.0-1.0 mg/dL AST (GOT) 29 5-31 U/L ALT (GPT) 25 0-31 U/L Protein, Total 7.0 6.5-8.0 g/dL Alb 3.8 3.5-5.0 g/dL Alk Phos 119 H 39-117 U/L Vitamin D 25-OH 59.5 >30 ng/mL Health Based Reference Values* < 20 ng/mL Deficient 20-30 ng/mL Insufficient > 30 ng/mL Sufficient *Boris SARKAR. N Engl J Med. 2007;357:266-280 There is no well-established upper level of normal vitamin D levels. Some laboratories use 50 ng/mL as an upper limit of normal. However, toxicity is patient-dependent and may occur at any level. Careful correlation with the patient's presentation is necessary and, if there is concern for vitamin D toxicity, treatment should be considered irrespective of the serum level. Care must be taken in interpreting Vitamin D results from different laboratories and methodologies. Published data demonstrated that results from patients undergoing hemodialysis may show a negative bias when tested with various automated 25-OH vitamin D assays when compared to LC-MS/MS. When testing samples from patients whose predominant form of Vitamin D is Vitamin D2, such as patients receiving Vitamin D2 supplementation, results that are subtherapeutic should be confirmed with another method such as LC-MS/MS. Free T4 1.30 0.71-1.85 ng/dL TSH 3rd Gen. 0.28 L 0.32-4.0 uIU/mL TSH 3rd Generation ([facility]) Coding Level of Care Code Est Pt Level 4 (83906) Diagnoses Osteopenia of left femoral neck M85.852 Primary hypertension I10 Hypertension type: primary hypertension Acquired hypothyroidism E03.9 Hypothyroidism type: acquired Additional Codes PHQ-9 - 27208 - PHQ-9 Billing: Yes ([id number]) JORGE-7 Assessment Billing - JORGE-7 Assessment Tool: JORGE-7 Assessment 11001 ([id number]) Assessment & Plan Assessment & Plan (1) Osteopenia of left femoral neck: Code(s): M85.852 - Other specified disorders of bone density and structure, left thigh Category: Medical Plan: Repeat DEXA scan ordered, continue taking vitamin-D 3 supplements and adequate calcium from dietary sources in addition to doing regular weight-bearing exercise. (2) Hypertension: Code(s): I10 - Essential (primary) hypertension Category: Medical Qualifiers: Hypertension type: primary hypertension Qualified Code(s): I10 - Essential (primary) hypertension Plan: Blood pressure at goal of less than 130/80. Continue with current medication. Reinforced importance of following a low sodium diet, getting regular exercise, and lowering stress levels. (3) Hypothyroidism: Code(s): E03.9 - Hypothyroidism, unspecified Category: Medical Qualifiers: Hypothyroidism type: acquired Qualified Code(s): E03.9 - Hypothyroidism, unspecified Plan: Thyroid levels are within normal limits, continue with current dose of Synthroid 150 mcg daily Orders: Orders XR DEXA axial skeleton 03/07/25 M85.852 - Other specified disorders of bone density and structure, left thigh
--- OUTSIDE RECORDS SUMMARY | 2025-03-07 12:11 | XMS_ITS | Clinical Summary ---
Author Organization [address] [facility] Address [address] [place] [address] Phone Care Team Providers Care Social Professionals Name Role Phone Karla Vee MD Primary Care Provider [phone] Allergies Active Allergy Reactions Criticality Noted Date Comments Adhes. Yuou-Rgwr-Fbheuuwteihi Rash 2024 Latex 12/28/2024 Penicillin 12/28/2024 Medications [...] 01/25/2025 11:45 AM EDT Office Visit Urogynecology [address] [place], [place] [phone] Fatemeh Benjamin MD Nocturnal polyuria (Primary Dx); OAB (overactive bladder) 12/28/2024 1:00 PM EDT Office Visit Urogynecology [place] [address] [place], [place] [address] [phone] Fatemeh Benjamin MD Nocturia (Primary Dx); Urge [...] 05/04/2025 8:45 AM EDT Office Visit Urogynecology [address] [phone] Fatemeh Benjamin MD [address] [facility] [address] [place] [address] Health Maintenance Due Date Last Done Comments [...] Ketones UA POC Negative Negative, Trace Specific [place] UA POC 1.025 Blood UA POC Negative [...] Result from Last 3 Months Insurance MEDICARE [facility] Care Teams Social Professionals Relationship Specialty Start Date End Date Karla Vee MD [address] [facility] [place] [id number] PCP - General Internal Medicine 10/04/24
== END 2025-03-07 12:34 | disposition home or self-care (01) ==
LOC: HO.HMCC 10:51
PROVIDERS: PCP Internal Medicine; Visit Provider Internal Medicine
DX: M85.852 Other specified disorders of bone density and structure, left thigh (principal); I10 Essential (primary) hypertension; E03.9 Hypothyroidism, unspecified

== ENCOUNTER → 2025-03-07 10:50 | Outpatient (BNVA) | payer MEDICARE, OTHER, SELFPAY | PROVIDERS: PCP Internal Medicine; Visit Provider Internal Medicine | DX: M85.852 Other specified disorders of bone density and structure, left thigh (principal); I10 Essential (primary) hypertension; E03.9 Hypothyroidism, unspecified | CPT/HCPCS: 96127; 99212 ==

== ENCOUNTER 2025-07-29 07:35 | Outpatient (REF) | payer MEDICARE, OTHER, SELFPAY ==
--- OUTSIDE RECORDS SUMMARY | 2025-07-29 07:37 | XMS_ITS | Clinical Summary ---
Author Organization [facility] Address [address] [address] Phone Care Team Providers Care Director Channel Name Role Phone Karla Vee MD Primary Care Provider Social History Tobacco Use Types Packs/Day Years Used Date Smoking Tobacco: Never Assessed Education Answer Date Recorded Are you interested in more education? Not on reji e 12/20/2022 Are you concerned about learning? Not on file 12/20/2022 No 12/20/2022 No 12/20/2022 Digital Access Answer Date Recorded No 01/18/2023 No 01/18/2023 No 01/18/2023 Reliable internet access at home? Not on file 01/18/2023 Device with a working camera? Not on file Comments Unknown Sex and Gender Information Value Date Recorded Sex Assigned at Not on file Legal Sex Female 12:03 PM EST Gender Identity Not on file Sexual Orientation Not on file Plan of Treatment Health Maintenance Due Date Last Done Comments Adult Td,Tdap Booster 1950 LIPID PANEL 1950 DEPRESSION SCREENING 1961 SMOKING Hx and SMOKELESS TOB ACCO SCREENING 1962 HEPATITIS C SCREENING 1967 PNEUMOCOCCAL VACCINES (50+ y ears) (1 of 1 - PCV) 1999 ZOSTER VACCINES (1 of 2) 1999 OSTEOPOROSIS SCREENING INITI AL (ONE-TIME) 2014 RSV VACCINE (1 - 1-dose 75+ series) 2024 INFLUENZA VACCINE (#1) 2025 COVID-19 VACCINE ( - 2024-2 6 season) 2025 HEPATITIS A VACCINES Aged Out No long er eligible based on patient's age to complete this topic HIB VACCINES Aged Out No longer eligi ble based on patient's age to complete this topic MENINGOCOCCAL VACCINES (ACWY) Aged Out No longer eligible based on patient's age to complete this topic MENINGOCOCCAL VACCINES (B) Aged Out N o longer eligible based on patient's age to complete this topic Medical Devices Not on file Insurance MEDICARE PART A & B Member Subscriber Plan / Payer (Ef fective 2014-Present) Name:Loraine Villarreal Member ID:[id number] Relation to Subscriber:Self Name:Loraine Villarreal Subscriber ID:[id number] Payer ID:[id number] Group ID:Not on file Type:Medicare Address: [facility] [employer] [facility] [address] [place] [phone] [facility] MEDICARE ENHANCE SUPPLEMENT MEDICARE PART A & B [facility] MEDICARE ENHANCE SUPPLEMENT MEDICARE PART A & B [facility] MEDICARE ENHANCE SUPPLEMENT MEDICARE PART A & B Member Subscriber Plan / Payer ( fective 2014-Present) Name:Loraine Villarreal Member ID:[id number] Relation to Subscriber:Self Name:Loraine Villarreal Subscriber ID:[id number] Payer ID:[id number] Group ID:Not on file Type:Medicare Address: [employer] [address] [place] [address] [facility] MEDICARE ENHANCE SUPPLEMENT MEDICARE PART A & B [facility] MEDICARE ENHANCE SUPPLEMENT MEDICARE PART A & B Member Subscriber Plan / Payer (Ef fective 2014-Present) Name:Loraine Villarreal Member ID:[id number] Relation to Subscriber:Self Name:Loraine Villarreal Subscriber ID:[id number] Payer ID:[id number] Group ID:Not on file Type:Medicare Address[facility] [address] [place] [address] [facility] MEDICARE ENHANCE SUPPLEMENT Care Teams Director Channel Relationship Specialty Start Date End Date Karla Vee MD [address] [facility] [place] [place] [address] PCP - General Internal Medicine 07/28/22 Additional Source Comments The information contained in this document represents components of the legal health record. It is not the complete legal health record.[facility]
--- OUTSIDE RECORDS SUMMARY | 2025-07-29 07:37 | XMS_ITS | Clinical Summary ---
Author Organization [address] [facility] Address [address] [place] [address] Phone Care Team Providers Care Fishing Manager Name Role Phone Karla Vee MD Primary Care Provider [phone] Allergies Active Allergy Reactions Criticality Noted Date Comments Adhes. Eazr-Rmvw-Swvaxtiqnqod Rash 2024 Latex 12/28/2024 Penicillin 12/28/2024 Medications [...] do not crush, chew, or split. 90 tablet 1 5 11/01/19 26 Active Encounters Date Type Department Care Team Description 05/04/2025 8:45 AM EDT Office Visit Urogynecology - [place] [address] [place] [address] [place] [phone] Fatemeh Benjamin MD Urge urinary incontinence (Primary Dx); OAB (overactive bladder) from Last 3 Months Social History Tobacco Use Types Packs/Day Years Used Date Smoking Tobacco: Never Assessed Comments Unknown Sex and Gender Information Value Date Recorded Sex Assigned at Not on file Legal Sex Female 7:09 AM EST Gender Identity Not on file Sexual Orientation Not on file Last Filed Vital Signs Vital Sign Reading Time Taken Comments Blood Pressure 145/87 05/04/2025 8:39 AM EDT Pulse 63 05/04/2025 8:39 AM EDT Temperature - - Respiratory Rate - - Oxygen Saturation - - Inhaled Oxygen Concentration - - Weight 105 kg (231 lb) 05/04/2025 8:39 AM EDT Height 162.6 cm (5' 4 ) 05/04/2025 8:39 AM EDT Body Mass Index 39.65 05/04/2025 8:39 AM EDT Plan of Treatment Upcoming Encounters Date Type Department Care Team (Late st Contact Info) Description 11/02/2025 8:30 AM EDT Office Visit Urogynecology [address] [address] Fatemeh Benjamin MD [address] [place] [address] [address] [place] [address] Health Maintenance Due Date Last Done Comments RSV Immunization Adult Patients (1 - 1-dose 75+ series) 2024 Depression Screening 08/24/2024 Cholesterol Screening (Lipid Panel) 10/04/2024 Falls Risk Assessment 10/04/2024 Hepatitis C Screening 10/04/2024 Medicare Annual Wellness Visit 10/04/2024 Osteoporosis Screening (Bone Density Screening) 10/04/2024 Social Influencers of Health Screening 10/04/2024 Hypertension/CHF/CAD Annual BMP Blood Test 12/28/2024 COVID-19 Vaccine ( season) 2025 05/09/2024, 05/25/2023, 05/30/2022, Additional history exists Influenza Vaccine (#1) 2025 , 05/18/2023, 05/12/2022, Additional history exists DTaP,Tdap,and Td Vaccines (6 - Td or Tdap) 02/07/2035 02/07/2025, 05/25/2014, 05/16/2013, Additional history exists Pneumococcal Vaccine: 50+ Years [...] on patient's age to complete this topic Insurance MEDICARE [facility] Care Teams Fishing Manager Relationship Specialty Start Date End Date Karla Vee MD [address] [facility] [place] [id number] PCP - General Internal Medicine 10/04/24
[2025-07-29 11:55] LABS: Alanine Aminotransferase 25 U/L (0-31); Anion Gap 12 (12-20); Aspartate Amino Transferase 31 U/L (5-31); Blood Urea Nitrogen 13 mg/dL (9-16); Calcium 9.3 mg/dL (8.4-10.2); Carbon Dioxide 25 mmol/L (22-29); Chloride 108 mmol/L (96-108); Cholesterol 156 mg/dL (<200); Estimated Glomerular Filt Rate > 60; HDL Cholesterol 51 mg/dL (>40); Potassium 4.4 mmol/L (3.3-5.1); Sodium 141 mmol/L (135-145); Triglycerides 131 mg/dL (<150)
[2025-07-29 12:15] LABS: Free T4 (Free Thyroxine) 1.26 ng/dL (0.71-1.85); Thyroid Stimulating Hormone 0.03 uIU/mL (0.32-4.0)
== END 2025-07-29 07:36 | disposition home or self-care (01) ==
LOC: HO.HMGCLDS 07:35
PROVIDERS: PCP Internal Medicine; Visit Provider Internal Medicine
DX: I10 Essential (primary) hypertension (principal); E03.9 Hypothyroidism, unspecified; M85.852 Other specified disorders of bone density and structure, left thigh; E66.01 Morbid (severe) obesity due to excess calories; Z98.84 Bariatric surgery status
CPT/HCPCS: 36415; 80048; 80061; 82306; 84439; 84443; 84450; 84460

== ENCOUNTER 2025-08-08 09:16 | Outpatient (AMB) | payer MEDICARE, OTHER, SELFPAY ==
--- OUTSIDE RECORDS SUMMARY | 2024-10-26 03:30 | XMS_ITS ---
Author Organization [facility] Address [address] [place] [address] Care Team Providers Care Certified Medical Technician Assistant Name Role Phone Mariusz MAHONEY, Karla Primary Care Provider Mandeep Turner [phone] REASON FOR VISIT screening,hx polyps Encounters Encounter Location Date Provider Diagnosis [facility] [address] [place] [phone] 10/26/2024 Mandeep Sr Plan Of Treatment No Information Progress Notes * MONAE DENISDOB:1950 (75 yo F)Acc No.[id number]:10/26/2024 COLON WITH MAC Patient: MONAE FARRIS Provider: Shani Sr MD :1950 A ge:74 Y S ex:Female Date:10/26/2024 Address:[address] [place], [place] [id number] Pcp:Karla Vee MD Subjective: * Chief Complaints: * S creening,hx polyps * The named appointment provid er may or may not be the originator of this progress note, and it is not deemed complete until electronically signed by the appointment provider. Sign off status: Pending * Provider: Shani Sr MD Date: 0 10/26/2024 Generated for Adolfoi ng/Farogerg/eTransmitting on: 1 10/09/2024 10:38 AM EST
--- OUTSIDE RECORDS SUMMARY | 2025-02-13 03:40 | XMS_ITS ---
Author Organization [facility] Address [address] [place] [address] Care Team Providers Care Harbor Pilot Name Role Phone Mariusz MAHONEY, Karla Primary Care Provider Mandeep Turner [phone] REASON FOR VISIT screening,hx polyps Encounters Encounter Location Date Provider Diagnosis [facility] Outpatient [address] [place] [address] [phone] 02/13/2025 Mandeep Sr Colon cancer scree kade Z12.11 ; Personal history of colonic polyps Z86.0100 ; Diverticulosis of large intestine without perforation or abscess without bleeding K57.30 and Other hemorrhoids K64.8 Assessments Encounter Date Diagnosis (ICD Code) Assessment Notes Treatment Notes Treatment Clinical Notes Section Notes 02/13/2025 Colon cancer screening (ICD-10 - Z12.11) 02/13/2025 Personal history of colonic polyps (ICD-10 - Z86.0100) 02/13/2025 Diverticulosis of large intestine without perforation or abscess without bleeding (ICD-10 - K57.30) 02/13/2025 Other hemorrhoids (ICD-10 - K64.8) Plan Of Treatment No Information Progress Notes * LAURIE DENISMOJGANDOB:1950 (75 yo F)Acc No.[id number]:02/13/2025 COLON WITH MAC Patient: MONAE FARRIS Provider: Shani Sr MD :1950 A ge:74 Y S ex:Female Date:02/13/2025 Address:[address] [place], [place] [id number] Pcp:Karla Vee MD Subjective: * Chief Complaints: * S creening,hx polyps Assessment: * Assessment: 1. C olon cancer screening - Z12.11 (Primary) 2 . P ersonal history of colonic polyps - Z86.0100 3 . D iverticulosis of large intestine without perforation or abscess without bleeding - K57.30 4 . O ther hemorrhoids - K64.8 ? Plan: * Procedure Codes: G 0105 COLOREC CANCR SCR; COLNSCPY HI [id number] INTRVL 3+YRS PTS CLNSCP [id number] RCMND FLW-UP 10 YRS DOCD, Modifiers: 1P Billing Information: * Procedure Codes: G0105 COLOREC CANCR SCR; COLNSCPY HI RISK. 0529F INTRVL 3+YRS PTS CLNSCP DOCD. 0528F RCMND FLW-UP 10 YRS DOCD. Modifiers: 1P * The named appointment provid er may or may not be the originator of this progress note, and it is not deemed complete until electronically signed by the appointment provider. Sign off status: Pending * Provider: Shani Sr MD Date: 0 02/13/2025 Generated for Kia alvarado/Kahdijah/Lokeshitting on: 1 10/09/2024 10:38 AM EST
--- NOTE | 2025-08-08 09:27 | AM.OFFVISMDC ---
Intake Vital Signs 08/08/25 09:30 Height 5 ft 4 in Weight 224 lb BMI 38.4 BP 104/62 Blood Pressure Location Lt brachial Position Sitting Respiration 15 Pulse 69 Pulse Source Pulse Oximeter Temp 98.0 F Temp Source Oral Pulse Oximetry (%) 95 Oxygen Delivery Method Room Air Intake Visit Reasons: SWV G0439 Intake Note: Pt is here today for her SWV: last mammogram 01/14/25, bone denisty scan 12/17/22, colonoscopy 02/13/25 Top Screw Required: No Allergies latex (LATEX) Allergy (Unknown, Verified 08/08/25 09:52) RASH Penicillins (PENICILLINS) Allergy (Unknown, Verified 08/08/25 09:52) DIFFICULTY BREATHING - YRS AGO tape Allergy (Unknown, Uncoded 08/08/25 09:52) redness and itching Medication List - Last Reconciled 08/08/25 by Karla Vee MD calcium citrate 200 mg PO BID cetirizine 10 mg PO DAILY cholecalciferol (vitamin D3) 3,000 units PO DAILY multivitamin with iron 1 tab PO DAILY mupirocin 2% topical DAILY omeprazole 20 mg PO DAILY PRN solifenacin 5 mg PO BEDTIME Synthroid (levothyroxine) 150 mcg PO DAILY 90 days NS vitamin A palmitate 10,000 units PO DAILY HPI SWV G0439 HPI Details SWV ?75 year old lady with past medical history of Hypertension, Hypothyroidism, Chronic GERD, Obesity with history of gastric bypass surgery, urinary incontinence, osteopenia of left femoral neck, and history of adenomatous colon polyp, here today for her subsequent Annual Wellness Visit. She is up-to-date with her screening mammogram, done 01/14/2025 with benign findings, and had a bone density done 12/17/2022 which showed presence of osteopenia in left femoral neck. She is up-to-date with her screening colonoscopy done by Dr. Sr on 02/13/2025 showed sigmoid diverticulosis and internal hemorrhoids, with no further testing indicated per provider. She is up-to-date with lipid and diabetes screening, last done 07/29/2025 both of which showed normal findings She is up-to-date with all her vaccinations including RSV vaccine but has not yet had her Prevnar 20 vaccine. ? Medical / Social History Reviewed? Past Medical History ?Yes . ? [place] of Care / Care Team list updated ?Yes . ? Surgical/Hospitalization History ?Yes . ? Current Medications (including OTC and supplements) ?Yes . ? Family History ?Yes . ? Tobacco Control form ?Yes . ? AUDIT-C (Alcohol use) form ?Yes . ? Illicit drug use in Social History ?Yes . ? Current diagnosis of depression? ?No ? Appropriate PHQ2/PHQ9 completed ?Yes . ? Data entered by ?[employer] and reviewed by provider ? Fall Risk ? Fall History? Have you had any falls with injury in the past year? ?No . ? Have you had two or more falls in the past year? ?No . ? Fall Risk Assessment: ?No falls in the past year . ? HRA filled out by the patient, reviewed by Provider and scanned. ?SWV ? Balance? Romberg negative ? Tandem walk ?Yes . ? Walk and Turn ?Yes . ? Rise from sit to stand ?Yes . ?Vision? Corrective lens none ? Vision screen ? Up-to-date, she sees Dr. Whitfield at [facility], no cataract no glaucoma or macular degeneration seen ?Hearing? Whisper test ?pass . ?Written Plan?Completed. See Patient Documents.? Already had her MOLST form and healthcare proxy form completed and in her medical record [facility] Medical History History of DVT (deep vein thrombosis) Mixed stress and urge incontinence Itching of ear History of adenomatous polyp of colon Bilateral chronic knee pain History of folliculitis Osteopenia of left femoral neck Closed fracture of radial styloid Varicose veins of bilateral lower extremities with pain Obesity H/O non anemic vitamin B12 deficiency Erythema intertrigo GERD (gastroesophageal reflux disease) Hypertension Hypothyroidism Surgical History History of colonoscopy History of Bradley-en-Y gastric bypass Hx laparoscopic cholecystectomy Family History Father No problems noted. Mother No problems noted. Sister Breast cancer Social History Housing: House Are you a primary aged or disabled care worker to a significant other at home: No Do you presently have visiting nurse or other home services: No Alcohol intake: current Alcohol intake frequency: holidays/special occasions only Alcohol type: wine Patient Tobacco Use Status: Former Tobacco user Cigarette Packs Per Day: 1 Cigarettes Per Day: 20 Years Smoked: 10 e-Cigarette/Vaping Use: Never Used Current occupational status: retired Cognitive needs: No Hearing needs: No Vision needs: Yes Questionnaire Medicare Wellness Checkup [age] What gender do you identify with?: female During the past 4 weeks, how much have you been bothered by emotional problems such as feeling anxious, depressed, irritable, sad or downhearted, and blue?: not at all During the past 4 weeks, has your physical & emotional health limited your social activities with family, friends, neighbors, or groups?: not at all During the past 4 weeks, how much bodily pain have you generally had?: very mild pain During the past 4 weeks, was someone available to help you if you needed & wanted help?: yes, as much as I wanted During the past 4 weeks, what was the hardest physical activity you could do for at least 2 minutes?: heavy Can you get to places out of walking distance without help? (For eg., can you travel alone on buses, taxis or drive your car?): Yes Can you go shopping for groceries or clothes without someone's help?: Yes Can you prepare your own meals?: Yes Can you do your housework without help?: Yes Because of any health problems, do you need the help of another person with your personal care needs such as eating, bathing, dressing or getting around the house?: No Can you handle your own money without help?: Yes During the past 4 weeks, how would you rate your health in general?: excellent During the past 4 weeks how have things been going for you?: very well; could hardly better Are you having difficulties driving your car?: no Do you always fasten your seat belt when you are in a car?: yes, usually During past 4 weeks, have you been bothered by the following: never: Falling or dizzy when standing up, Sexual problems?, Trouble eating well?, Teeth or denture problems?, Problems using the telephone? and Tiredness or fatigue? Have you fallen 2 or more times in the past year?: No Are you afraid of falling?: No Are you a smoker?: no During the past 4 weeks, how many drinks of wine, beer, or other alcoholic beverages did you have?: no alcohol at all Do you exercise for about 20 minutes 3 or more times a week?: yes, all the time Have you been given information to help with the following?: no: Hazards in your house that might hurt you? and no: Keeping track of your medications? How often do you have trouble taking medicines the way you have been told to take them?: I always take medicine as prescribed How confident are you that you can control & manage most of your health problems?: very confident What is your race?: White Mini Mental State Exam (MMSE) Orientation What is the (year) (season) (date) (day) (month)?: year (2024), season (Fall), date (08/08/25), day (Thursday) and month (JUL) Where are we (state) (county) (town or city) (hospital) (floor)?: state ([facility]), county ([place]), town or city ([place]) and hospital/clinic ([facility]) Score Score: 9 Activity of Daily Living Bathing - sponge bath, tub bath or shower: receives no assistance (gets in/out by self, if usual bathing means Dressing - getting clothes from closets & drawers, including inner/outer garments & fasteners.: gets clothes & gets completely dressed without help Toileting - going to the 'toilet room' for urine/bowel elimination & cleaning self/arranging clothes: goes to toilet room, cleans self, arranges clothes without help Transfer: moves in & out of bed and chair without help (may use support object) Continence: has occasional 'accidents' Feeding: feeds self without help Total Score: 0 Information obtained from: patient Using telephone: independent Traveling: independent Shopping: independent Preparing meals: independent Housework: independent Taking medicine: independent Managing money: independent PHQ-9 Over the last 2 weeks, how often have you been bothered by any of the following problems? 1. Little interest or pleasure in doing things: not at all 2. Feeling down, depressed, or hopeless: not at all 3. Trouble falling or staying asleep, or sleeping too much: not at all 4. Feeling tired or having little energy: not at all 5. Poor appetite or overeating: not at all 6. Feeling bad about yourself - or that you are a failure or have let yourself or your family down: not at all 7. Trouble concentrating on things, such as reading the newspaper or watching television: not at all 8. Moving or speaking so slowly that other people could have noticed. Or the opposite - being so fidgety or restless that you have been moving around a lot more than usual: not at all 9. Thoughts that you would be better off or of hurting yourself in some way: not at all Total score: 0 Depression Screening Interpretation: Negative Depression Screening Done: Yes 93673 - PHQ-9 Billing: Yes Source: Developed by Drs. Mandeep Martinez, Jeny Almodovar, Braulio Hardy and colleagues, with an educational toby from [employer]. Physical Exam Vital Signs: Last Vital Signs Temp 98.0 F 08/08/25 09:30 Pulse 69 08/08/25 09:30 Resp 15 08/08/25 09:30 BP 104/62 08/08/25 09:30 Pulse Ox 95 08/08/25 09:30 Oxygen Delivery Method Room Air 08/08/25 09:30 BMI result Body Mass Index 38.4 Immunizations pneumoc 20-mekhi conj-dip cr(PF) 0.5 mL IM syringe Performing Provider: Karla Vee MD Performing Location: [facility] Administered by: Nydia Morrell CMA on 08/08/25 10:17 Dose Route Admin Location Dispensed Lot Number Expiration Date [facility] Chargeback Specialist 0.5 mL IM Left Deltoid 0.5 mL [id number] 05/23/26 [id number] [employer] Total Dispensed Waste 0.5 mL 0 % VIS Given Date VIS Provided VIS Publication Date 08/08/25 Single Vaccine 25 Eligibility Eligibility Date Funding Source Not [facility] Eligible 08/08/25 Private Results Reviewed Results Reviewed: Name: Loraine Villarreal Age/Sex: 75/F : 1950 Unit#: [id number] Attend Dr: Karla Vee MD Re07/29/25 Status: DEP REF Location: [facility] Disch: SPEC : [id number] STEVIE: 07/29/25 STATUS: COMP REQ : [id number] RECD: 07/29/25-[address]: Karla Vee MD COMP: 07/29/25-1214 ENTERED: 07/29/25-[address]: ORDERED: Met Prof Fast, AST, ALT, Lipid Panel, Vitamin D 25-OH, Free T4, TSH Test Result Flag Reference Sodium 141 135-145 mmol/L Potassium 4.4 # 3.3-5.1 mmol/L CL 108 96-108 mmol/L CO2 25 22-29 mmol/L Gap 12 12-20 BUN 13 9-16 mg/dL Creat 0.69 0.5-1.4 mg/dL eGFR > 60 Chronic Kidney Disease: Estimated GFR < 60 mL/min/1.73m2 Severe Kidney Disease: Estimated GFR < 15 mL/min/1.73m2 FBS 100 H 60-99 mg/dL A fasting glucose from 100-125 mg/dl is considered impaired (pre-diabetes). CA 9.3 8.4-10.2 mg/dL AST (GOT) 31 5-31 U/L ALT (GPT) 25 0-31 U/L Triglyceride 131 <150 mg/dL Desirable Triglyceride: less than 150 mg/dL Borderline High Triglyceride 150-199 mg/dL High Triglyceride: 200-499 mg/dL Very High Triglyceride: greater than or equal to 5OO mg/dL Cholesterol 156 <200 mg/dL Desirable Cholesterol: less than 200 mg/dL Borderline High Cholesterol: 200-239 mg/dL High Cholesterol: greater than 239 mg/dL LDL Calculated 79 <100 mg/dL Desirable LDL: less than 100 mg/dL Near Optimal/Above Optimal LDL: 110-129 mg/dL Borderline High LDL: 130-159 mg/dL High LDL: 160-189 mg/dL Very High LDL: greater than or equal to 190 mg/dL HDL 51 >40 mg/dL Desirable HDL: greater than 40 mg/dL Note: This HDL assay may give artificially low results in patients with liver disease. Vitamin D 25-OH 73.0 >30 ng/mL Health Based Reference Values* < 20 ng/mL Deficient 20-30 ng/mL Insufficient > 30 ng/mL Sufficient *Boris SARKAR. N Engl J Med. 2007;357:266-280 There is no well-established upper level of normal vitamin D levels. Some laboratories use 50 ng/mL as an upper limit of normal. However, toxicity is patient-dependent and may occur at any level. Careful correlation with the patient's presentation is necessary and, if there is concern for vitamin D toxicity, treatment should be considered irrespective of the serum level. Care must be taken in interpreting Vitamin D results from different laboratories and methodologies. Published data demonstrated that results from patients undergoing hemodialysis may show a negative bias when tested with various automated 25-OH vitamin D assays when compared to LC-MS/MS. When testing samples from patients whose predominant form of Vitamin D is Vitamin D2, such as patients receiving Vitamin D2 supplementation, results that are subtherapeutic should be confirmed with another method such as LC-MS/MS. Free T4 1.26 0.71-1.85 ng/dL TSH 3rd Gen. 0.03 L 0.32-4.0 uIU/mL Laboratory Tests 02/18/25 08:40 Hgb 14.9 Hct 46.0 Assessment & Plan Assessment & Plan (1) Encounter for subsequent annual wellness visit (AWV) in Medicare patient: Code(s): Z00.00 - Encounter for general adult medical examination without abnormal findings Plan: Medical wellness checklist reviewed, discussed with patient and updated. Prevnar 20 given today, up-to-date with the rest of her vaccinations. Up-to-date with her advanced directives, copy of MOLST and healthcare proxy form in her chart. No longer needs follow-up colon cancer screening per Dr. Sr. Has a mammogram appointment scheduled for next year and will follow-up on order for her repeat bone density scan (2) Hypothyroidism: Code(s): E03.9 - Hypothyroidism, unspecified Qualifiers: Hypothyroidism type: acquired Qualified Code(s): E03.9 - Hypothyroidism, unspecified Plan: Continue Synthroid 150 mcg daily (3) Osteopenia of left femoral neck: Code(s): M85.852 - Other specified disorders of bone density and structure, left thigh Plan: Has an order for repeat bone density scan continue with calcium supplements and vitamin-D supplements in addition to weight-bearing exercise (4) GERD (gastroesophageal reflux disease): Code(s): K21.9 - Gastro-esophageal reflux disease without esophagitis Qualifiers: Esophagitis presence: esophagitis presence not specified Qualified Code(s): K21.9 - Gastro-esophageal reflux disease without esophagitis Plan: Currently taking omeprazole 20 mg once a day as needed (5) Mixed stress and urge incontinence: Code(s): N39.46 - Mixed incontinence Plan: Currently on solifenacin 5 mg at bedtime Orders: Orders Pneumococcal 20 Immunization Today Z23 - Encounter for immunization Quality Reporting (2019) Depression/Bipolar (159/160/161/177) PHQ-9: Total score: 0 Coding Level of Care Code Medicare Subsequent (G0439) Diagnoses Encounter for subsequent annual wellness visit (AWV) in Medicare patient Z00.00 Acquired hypothyroidism E03.9 Hypothyroidism type: acquired Osteopenia of left femoral neck M85.852 Gastroesophageal reflux disease, unspecified whether esophagitis present K21.9 Esophagitis presence: esophagitis presence not specified Mixed stress and urge incontinence N39.46 CPT Codes Advance Care Planning - Advance Care Planning discussion: On file, no changes ([id number]) Advance Care Planning - Time spent: 1-15 minutes, on File ([id number]) Additional Codes PHQ-9 - 47031 - PHQ-9 Billing: Yes ([id number]) Advance Care Planning Advance Care Planning discussion: On file, no changes Date of discussion: 08/08/25 Who was present: Patient Time spent: 1-15 minutes, on File Actual minutes spent: 1
[2025-08-08 09:30] VITALS: BP 104/62; PULSE 69; RESP 15; TEMP 36.7; O2SAT 95; BMI 38.4
--- OUTSIDE RECORDS SUMMARY | 2025-08-08 10:39 | XMS_ITS | Clinical Summary ---
Author Organization [address] [facility] Address [address] [place] [address] Phone Care Team Providers Care Pharmacognosist Name Role Phone Karla Vee MD Primary Care Provider [phone] Allergies Active Allergy Reactions Criticality Noted Date Comments Adhes. Jrcw-Vjdq-Oiwxcdkgsfjk Rash 2024 Latex 12/28/2024 Penicillin 12/28/2024 Medications [...] 90 tablet 1 5 11/01/19 26 Active Social History Tobacco Use Types Packs/Day Years [...] 11/02/2025 8:30 AM EDT Office Visit Urogynecology [facility] [address] [place] [address] Fatemeh Benjamin MD [address] [place] [address] [address] [place] [address] Health Maintenance Due Date Last Done Comments [...] age to complete this topic Insurance MEDICARE [facility] Care Teams Pharmacognosist Relationship Specialty Start Date End Date Karla Vee MD [address] [facility] [place] [id number] PCP - General Internal Medicine 10/04/24
== END 2025-08-08 10:22 | disposition home or self-care (01) ==
LOC: HO.HMCC 09:17
PROVIDERS: PCP Internal Medicine; Visit Provider Internal Medicine
DX: Z00.00 Encounter for general adult medical examination without abnormal findings (principal); E03.9 Hypothyroidism, unspecified; M85.852 Other specified disorders of bone density and structure, left thigh; K21.9 Gastro-esophageal reflux disease without esophagitis; N39.46 Mixed incontinence; Z23 Encounter for immunization

== ENCOUNTER → 2025-08-08 09:16 | Outpatient (BNVA) | payer MEDICARE, OTHER, SELFPAY | PROVIDERS: PCP Internal Medicine; Visit Provider Internal Medicine | DX: Z13.31 Encounter for screening for depression (principal); Z23 Encounter for immunization | CPT/HCPCS: 90471; 90677; 96127 ==